=== PATIENT | female | born 1990 | race Caucasian/White ===

== ENCOUNTER 2018-06-10 13:16 | Emergency (ER) | payer OTHER ==
[2018-06-10 13:31] VITALS: BP 116/72; PULSE 88; RESP 16; TEMP 98.2
--- NOTE | 2018-06-10 13:49 | ED ---
General Adult HPI - General Chief complaint: Extremity Injury, Upper Stated complaint: lt arm pain Time Seen by Provider: 06/10/18 13:35 Source: patient, RN notes reviewed Mode of arrival: ambulatory Limitations: no limitations - History of Present Illness Initial comments: Patient for 27-year-old female presents to the emergency room today with a chief complaint of a fall occurred 2 days ago. She does admit that she tripped over a flip-flop. She states that her abdominal left wrist. Does admit to pain locally worse with certain movements. Patient denies any other injury or complaint. - Related Data Home Medications Medication Instructions Recorded Confirmed Ibuprofen [Motrin Ib] 400 mg PO ONCE PRN 06/10/18 06/10/18 Allergies Allergy/AdvReac Type Severity Reaction Status Date / Time No Known Allergies Allergy Unverified 06/10/18 13:40 Review of Systems ROS Statement: Those systems with pertinent positive or pertinent negative responses have been documented in the HPI. ROS Other: All systems not noted in ROS Statement are negative. Past Medical History Past Medical History: No Reported History History of Any Multi-Drug Resistant Organisms: C-DIFF Date of last positivie culture/infection: 2015 Past Surgical History: Adenoidectomy, Section, Tonsillectomy Additional Past Surgical History / Comment(s): tubes in ears, colonoscopy and EGD 2016, knee surgery Past Psychological History: No Psychological Hx Reported Smoking Status: Current every day smoker Past Alcohol Use History: Rare Past Drug Use History: None Reported General Exam - General Exam Comments Initial Comments: General: The patient is awake and alert, in no distress, and does not appear acutely ill. Neck: The neck is supple, there is no tenderness or JVD. Musculoskeletal: Normal appearance of the left wrist obvious deformity. Shows good range of motion both flexion and extension. Tender palpation of the distal radius. Sensation intact. Radial pulses plus. Neurological: A&O x 3. CN II-XII intact, There are no obvious motor or sensory deficits. Coordination appears grossly intact. Speech is normal. Skin: Skin is warm and dry and no rashes or lesions are noted. Psychiatric: Normal mood and affect. Limitations: no limitations Course Vital Signs 06/10/18 13:27 Temperature 98.2 F Pulse Rate 88 Respiratory 16 Rate Blood Pressure 116/72 O2 Sat by Pulse 99 Oximetry Medical Decision Making - Medical Decision Making X-ray reviewed as negative for any acute fracture dislocation. Results were discussed with patient. Patient is advised follow-up in 7-10 days for repeat x- ray. Advised ice elevate the affected area use Alvarez wrap for compression. Advised return for any other concerns. Disposition Clinical Impression: Wrist sprain Disposition: HOME SELF-CARE Condition: Good Instructions: Wrist Sprain (ED) Additional Instructions: Please follow-up in 7-10 days with orthopedic doctor symptoms persist for repeat x-rays as discussed. Please continue to ice elevate the affected area and use Alvarez wrap on up and moving around. Please do not sleep with nontender please use Tylenol/ibuprofen for pain. Is patient prescribed a controlled substance at d/c from ED?: No Referrals: Nonstaff,Physician [REFERRING] - 1-2 days Giovanny Velez DO [Doctor of Osteopathic Medicine] - 1-2 days Time of Disposition: 14:48
--- NOTE | 2018-06-10 14:29 | XR ---
EXAMINATION TYPE: XR wrist complete LT DATE OF EXAM: 06/10/2018 COMPARISON: NONE HISTORY: 27-year-old female with pain after fall TECHNIQUE: 4 views FINDINGS: The radiocarpal and distal radioulnar joints as well as the midcarpal compartment are intact. No acut e fracture, subluxation, or dislocation seen. IMPRESSION: No acute osseous abnormality seen.
== END 2018-06-10 14:52 | disposition home or self-care (01) ==
LOC: EC 13:16
DX: S63.502A Unspecified sprain of left wrist, initial encounter (principal); F17.200 Nicotine dependence, unspecified, uncomplicated; W01.0XXA Fall on same level from slipping, tripping and stumbling without subsequent striking against object, initial encounter
CPT/HCPCS: 99283

== ENCOUNTER 2019-01-16 18:22 | Observation (INO) | payer OTHER ==
[2019-01-16] MEDS ORDERED: SODIUM CHLORIDE 0.9% 1,000 ML IV STA (18:33)
[2019-01-16] MEDS ORDERED: ONDANSETRON 4 MG/2 ML VIAL IVP STA (18:33)
[2019-01-16] MEDS ORDERED: MORPHINE SULFATE 2 MG/ML SYRINGE IVP STA (18:33)
[2019-01-16 19:28] LABS: Appearance,Urine Clear (Clear); Bilirubin,Urine Negative (Negative); Blood,Urine Negative (Negative); Color,Urine Yellow; Glucose,Urine (UA) Negative (Negative); Ketones,Urine Negative (Negative); Leukocyte Esterase,Urine Negative (Negative); Nitrite,Urine Negative (Negative); PH, Urine 6.5 (5.0-8.0); Protein,Urine Trace (Negative)
[2019-01-16 19:31] LABS: Basophils # (A) 0.1 k/uL (0-0.2); Basophils % (A) 1 %; Eosinophils # (A) 0.2 k/uL (0-0.7); Eosinophils % (A) 2 %; HCT 45.5 % (34.0-46.0); HGB 14.8 gm/dL (11.4-16.0); Lymphocytes # (A) 2.3 k/uL (1.0-4.8); Lymphocytes % (A) 23 %; MCH 31.1 pg (25.0-35.0); MCHC 32.6 g/dL (31.0-37.0); MCV 95.6 fL (80.0-100.0); Mean Platelet Volume 6.2; Monocytes # (A) 0.4 k/uL (0-1.0); Monocytes % (A) 4 %; Neutrophils # (A) 7.2 k/uL (1.3-7.7); Neutrophils % (A) 70 %; Platelet Count 395 k/uL (150-450); RBC 4.77 m/uL (3.80-5.40); RDW 12.9 % (11.5-15.5); WBC 10.2 k/uL (3.8-10.6)
[2019-01-16 19:37] LABS: ALT 33 U/L (9-52); AST 20 U/L (14-36); Albumin 3.9 g/dL (3.5-5.0); Alkaline Phosphatase 60 U/L (38-126); Amylase 74 U/L (30-110); Anion Gap 10 mmol/L; Blood Urea Nitrogen 10 mg/dL (7-17); Calcium 9.3 mg/dL (8.4-10.2); Carbon Dioxide 21 mmol/L (22-30); Chloride 110 mmol/L (98-107); Glucose 102 mg/dL (74-99); Lipase 504 U/L (23-300); Sodium 141 mmol/L (137-145); Total Bilirubin 0.4 mg/dL (0.2-1.3); Total Protein 6.8 g/dL (6.3-8.2)
--- NOTE | 2019-01-16 20:19 | ED ---
Abdominal Pain HPI <Jerome Valdez - Last Filed: 01/16/19 22:20> - General Source: patient Mode of arrival: ambulatory Limitations: no limitations <Kandy Yanes - Last Filed: 01/16/19 23:03> - General Chief Complaint: Abdominal Pain Stated Complaint: Abd Pain Time Seen by Provider: 01/16/19 18:25 - History of Present Illness Initial Comments: 28-year-old female presenting today for chief complaint of right-sided abdominal pain. Patient states that she had been coughing pretty hard yesterday when she felt sudden right-sided abdominal pain. Patient states she can feel a mass in the right side. She states this is where the pain occurs. Patient states the pain increases with stretching or movement or walking. Patient states pain is constant but is better at rest. Patient states that she is currently menstrual however this does not feel like it is in the pelvic region. Patient denies any heavy vaginal bleeding or back pain. Patient denies any trauma to the abdomen. Patient denies any vomiting. Patient does admit to nausea due to the pain. Patient denies any flank pain hematuria urgency frequency dysuria. Patient states she does have softer than normal stools however she states this often occurs with menstruation. Patient denies any fever chills night sweats. Remain ing review of systems negative upon arrival patient appears uncomfortable, patient denies any recent shortness of breath, chest pain, back pain, numbness or tingling, dysuria or hematuria, constipation, headaches or visual changes, or any other complaints. Patient denies any intra-abdominal surgeries. (Kandy Yanes) - Related Data Home Medications Medication Instructions Recorded Confirmed Acetaminophen [Tylenol] 650 mg PO Q8H 01/16/19 01/16/19 Acetaminophen/Diphenhydramine 2 tab PO HS 01/16/19 01/16/19 [Tylenol PM 500-25mg] Allergies Allergy/AdvReac Type Severity Reaction Status Date / Time No Known Allergies Allergy Verified 01/16/19 19:28 Review of Systems ROS Other: All systems not noted in ROS Statement are negative. <Jerome Valdez - Last Filed: 01/16/19 22:20> ROS Other: All systems not noted in ROS Statement are negative. <Kandy Yanes - Last Filed: 01/16/19 23:03> ROS Statement: Those systems with pertinent positive or pertinent negative responses have been documented in the HPI. Past Medical History Past Medical History: No Reported History History of Any Multi-Drug Resistant Organisms: C-DIFF Date of last positivie culture/infection: 2015 Past Surgical History: Adenoidectomy, Section, Ear Surgery, Tonsille ctomy Additional Past Surgical History / Comment(s): tubes in ears, colonoscopy and EGD 2016, knee surgery Past Psychological History: No Psychological Hx Reported Smoking Status: Current every day smoker Past Alcohol Use History: Rare Past Drug Use History: None Reported <Kandy Yanes - Last Filed: 01/16/19 23:03> General Exam Limitations: no limitations <Kandy Yanes - Last Filed: 01/16/19 23:03> - General Exam Comments Initial Comments: General: The patient is awake and alert, patient crying appearing uncomfortable Eye: +3 mm pupils are equal, round and reactive to light, extra-ocular movements are intact. No nystagmus. There is normal conjunctiva bilaterally. No signs of icterus. Ears, nose, mouth and throat: There are moist mucous membranes and no oral lesions. Neck: The neck is supple, there is no tenderness or JVD. Cardiovascular: There is a regular rate and rhythm. No murmur, rub or gallop is appreciated. Respiratory: Lungs are clear to auscultation, respirations are non-labored, breath sounds are equal. No wheezes, stridor, rales, or rhonchi. Gastrointestinal: No noted diaphoresis, jaundice, pallor, protecting postures or squirming. Symmetrical pigmentation of abdomen without signs of inflammation. Umbilicus mildline, inverted without swelling. No dilated veins. Abdomen contour obese, no noted abdominal distention. No peristalsis, aortic pulsations, or ventral hernia. Bowel sounds audible in all 4 quadrants, unremarkable. Palpable mass p rotruding and right lower quadrant. Pain to palpation at site of mass, does not appear to be a reducible hernia . Liver edge, not palpable. Spleen edge, right and left kidney not palpable. Superior bladder margin non-tender. Special Testing: Negative [place], Rovsing, McBurney, Mik, cutaneous hyperesthesia. Negative Heel Jar test. No CVA tenderness. Digital rectal exam deferred. Negative nathan turners or cullens sign Musculoskeletal: Normal ROM, no tenderness. Strength 5/5. Sensation intact. Pulses equal bilaterally 2+. Neurological: A&O x 3. CN II-XII intact, There are no obvious motor or sensory deficits. Coordination appears grossly intact. Speech is normal. Skin: Skin is warm and dry and no rashes or lesions are noted. Psychiatric: Cooperative, appropriate mood & affect, normal judgment. (Kandy Yanes) Course Vital Signs 01/16/19 18:28 Temperature 98.2 F Pulse Rate 101 H Respiratory 18 Rate Blood Pressure 112/73 O2 Sat by Pulse 100 Oximetry Medical Decision Making - Lab Data Result diagrams: 01/16/19 19:19 01/16/19 19:19 <Jerome Valdez - Last Filed: 01/16/19 22:20> - Lab Data Result diagrams: 01/16/19 19:19 01/16/19 19:19 <Kandy Yanes - Last Filed: 01/16/19 23:03> - Medical Decision Making Patient with sudden onset lower abdominal pain. Patient has focal tenderness on exam. Symptoms began with coughing spell. CT does show 2.5 cm mass adjacent to the rectus, likely rectus sheath hematoma. History and exam is consistent. Patient given multiple doses of IV pain medication the emergency department, will be admitted for pain control. Case discussed with Dr. Osborn, we will admit. (Jerome Valdez) Patient presented for sudden lower abdominal pain. Patient has masses. The tenderness on exam. CT revealed a 2.5 [place] to the rectus, this is most likely a hematoma. Patient given IV analgesic in the emergency department. Dr. Hernandez consult to to review CT imaging studies, he spoke with attending provider Dr. Valdez who also reviewed imaging studies. He recommended patient admission if patient pain is not controlled. Accepting admission. Patient given option of admission for IV analgesics first discharge. Patient would like admission at this time given patient pain is not controlled. I am agreeable to admission patient denies any questions at this time. Patient admitted to emergency department for intractable pain as well as rectus sheath hematoma. (Kandy Yanes) - Lab Data Lab Results 01/16/19 01/16/19 01/16/19 Range/Units 19:19 19:19 19:19 WBC 10.2 (3.8-10.6) k/uL RBC 4.77 (3.80-5.40) m/uL Hgb 14.8 (11.4-16.0) gm/dL Hct 45.5 (34.0-46.0) % MCV 95.6 (80.0-100.0) fL MCH 31.1 (25.0-35.0) pg MCHC 32.6 (31.0-37.0) g/dL RDW 12.9 (11.5-15.5) % Plt Count 395 (150-450) k/uL Neutrophils % 70 % Lymphocytes % 23 % Monocytes % 4 % Eosinophils % 2 % Basophils % 1 % Neutrophils # 7.2 (1.3-7.7) k/uL Lymphocytes # 2.3 (1.0-4.8) k/uL Monocytes # 0.4 (0-1.0) k/uL Eosinophils # 0.2 (0-0.7) k/uL Basophils # 0.1 (0-0.2) k/uL Sodium 141 (137-145) mmol/L Potassium 4.0 (3.5-5.1) mmol/L Chloride 110 H (98-107) mmol/L Carbon Dioxide 21 L (22-30) mmol/L Anion Gap 10 mmol/L BUN 10 (7-17) mg/dL Creatinine 0.74 (0.52-1.04) mg/dL Est GFR (CKD-EPI)AfAm >90 (>60 ml/min/1.73 sqM) Est GFR (CKD-EPI)NonAf >90 (>60 ml/min/1.73 sqM) Glucose 102 H (74-99) mg/dL Calcium 9.3 (8.4-10.2) mg/dL Total Bilirubin 0.4 (0.2-1.3) mg/dL AST 20 (14-36) U/L ALT 33 (9-52) U/L Alkaline Phosphatase 60 (38-126) U/L Total Protein 6.8 (6.3-8.2) g/dL Albumin 3.9 (3.5-5.0) g/dL Amylase 74 (30-110) U/L Lipase 504 H (23-300) U/L Urine Color Urine Appearance (Clear) Urine pH (5.0-8.0) Ur Specific [place] (1.001-1.035) Urine Protein (Negative) Urine Glucose (UA) (Negative) Urine Ketones (Negative) Urine Blood (Negative) Urine Nitrite (Negative) Urine Bilirubin (Negative) Urine Urobilinogen (<2.0) mg/dL Ur Leukocyte Esterase (Negative) Urine HCG, Qual Not Detected (Not Detectd) 01/16/19 Range/Units 19:19 WBC (3.8-10.6) k/uL RBC (3.80-5.40) m/uL Hgb (11.4-16.0) gm/dL Hct (34.0-46.0) % MCV (80.0-100.0) fL MCH (25.0-35.0) pg MCHC (31.0-37.0) g/dL RDW (11.5-15.5) % Plt Count (150-450) k/uL Neutrophils % % Lymphocytes % % Monocytes % % Eosinophils % % Basophils % % Neutrophils # (1.3-7.7) k/uL Lymphocytes # (1.0-4.8) k/uL Monocytes # (0-1.0) k/uL Eosinophils # (0-0.7) k/uL Basophils # (0-0.2) k/uL Sodium (137-145) mmol/L Potassium (3.5-5.1) mmol/L Chloride (98-107) mmol/L Carbon Dioxide (22-30) mmol/L Anion Gap mmol/L BUN (7-17) mg/dL Creatinine (0.52-1.04) mg/dL Est GFR (CKD-EPI)AfAm (>60 ml/min/1.73 sqM) Est GFR (CKD-EPI)NonAf (>60 ml/min/1.73 sqM) Glucose (74-99) mg/dL Calcium (8.4-10.2) mg/dL Total Bilirubin (0.2-1.3) mg/dL AST (14-36) U/L ALT (9-52) U/L Alkaline Phosphatase (38-126) U/L Total Protein (6.3-8.2) g/dL Albumin (3.5-5.0) g/dL Amylase (30-110) U/L Lipase (23-300) U/L Urine Color Yellow Urine Appearance Clear (Clear) Urine pH 6.5 (5.0-8.0) Ur Specific [place] 1.030 (1.001-1.035) Urine Protein Trace H (Negative) Urine Glucose (UA) Negative (Negative) Urine Ketones Negative (Negative) Urine Blood Negative (Negative) Urine Nitrite Negative (Negative) Urine Bilirubin Negative (Negative) Urine Urobilinogen 2.0 (<2.0) mg/dL Ur Leukocyte Esterase Negative (Negative) Urine HCG, Qual (Not Detectd) Disposition <Jerome Valdez - Last Filed: 01/16/19 22:20> Is patient prescribed a controlled substance at d/c from ED?: No Time of Disposition: 22:36 Decision to Admit Reason: Admit from EC Decision Date: 01/16/19 Decision Time: 22:36 <Kandy Yanes - Last Filed: 01/16/19 23:03> Clinical Impression: Nontraumatic rectus hematoma, Intractable pain Disposition: ADMITTED IP TO THIS [facility] Condition: Stable
--- NOTE | 2019-01-16 20:37 | CT ---
EXAMINATION TYPE: CT abdomen pelvis w con DATE OF EXAM: 01/16/2019 COMPARISON: HISTORY: RQ pain. Hx C-diff, sx hx CT DLP: 1270.9 mGycm Automated exposure control for dose reduction was used. TECHNIQUE: Helical acquisition of images was performed from the lung bases through the pelvis. CONTRAST: Performed without Oral Contrast and with IV Contrast, patient injected with 100 mL of Isovu e 300. FINDINGS: LUNG BASES: No significant abnormality is appreciated. LIVER/GB: No significant abnormality is appreciated. PANCREAS: No significant abnormality is seen. SPLEEN: No significant abnormality is seen. ADRENALS: No significant abnormality is seen. KIDNEYS: No significant abnormality is seen. FREE AIR: No free air is visualized. ABDOMINAL ADENOPATHY: None visualized REPRODUCTIVE ORGANS: No significant abnormality is seen. Tampon noted. URINARY BLADDER: No significant abnormality is seen. PELVIC ADENOPATHY: None visualized. ANTERIOR ABDOMINAL WALL: 10 cm caudal to the umbilicus, in the right Spigelian position, is a 2.5 cm diameter ill-defined solid soft tissue emanating from the right rectus abdominis. This may correspond with the patient's symptoms, and may represent postprocedure change. OSSEOUS STRUCTURES: No significant abnormality is seen. BOWEL: No significant abnormality is seen. The appendix is unremarkable. OTHER: No acute vascular findings. IMPRESSION: 2.5 CM SOFT TISSUE PROTUBERANCE RELATED TO THE RIGHT RECTUS ABDOMINIS.
--- NOTE | 2019-01-16 20:43 | US ---
EXAMINATION TYPE: US abdomen limited DATE OF EXAM: 01/16/2019 COMPARISON: NONE CLINICAL HISTORY: GB/pancreas. RUQ pain, nausea for 1 day EXAM MEASUREMENTS: Liver Length: 15.6 cm Gallbladder Wall: 0.3 cm CBD: 0.3 cm Right Kidney: 9.9 x 3.2 x 4.8 cm Pancreas: limited evaluation due to overlying bowel content Liver: appears wnl Gallbladder: contracted Evidence for sonographic Turner's sign: no CBD: appears wnl Right Kidney: no evidence of hydronephrosis or mass IMPRESSION: NO ACUTE PROCESS.
[2019-01-16] MEDS ORDERED: MORPHINE SULFATE 4 MG/ML SYRINGE IVP STA (21:17)
[2019-01-16] MEDS ORDERED: ONDANSETRON 4 MG/2 ML VIAL IVP PRN (22:33)
[2019-01-16] MEDS ORDERED: NALOXONE 0.4 MG/ML 1 ML VIAL IV PRN (22:33)
[2019-01-16] MEDS ORDERED: SODIUM CHLORIDE 0.9% 1,000 ML IV SCH (22:45)
[2019-01-16] MEDS ORDERED: NICOTINE 14MG/24HR PATCH TRANSDERM SCH (22:45)
[2019-01-16] MEDS ORDERED: NICOTINE 14MG/24HR PATCH TRANSDERM STA (22:50)
[2019-01-16] MEDS: HYDROmorphone 0.5 MG/0.5 ML SYRINGE IVP PRN (23:03)
[2019-01-16 23:07] VITALS: RESP 16
[2019-01-17] MEDS: HYDROmorphone 0.5 MG/0.5 ML SYRINGE IVP PRN ×3 (02:06→08:19)
[2019-01-17 07:44] VITALS: TEMP 98.4
[2019-01-17 08:43] VITALS: BP 129/84; PULSE 76
[2019-01-17] MEDS ORDERED: HYDROcodone/APAP 7.5-325MG 1 EACH TAB PO PRN (08:43)
--- NOTE | 2019-01-17 09:23 | P.GSHP ---
History of Present Illness H&P Date: 01/17/19 Chief Complaint: Right-sided abdominal pain This is a 20-year-old female who developed severe abdominal pain after a coughing spell. The patient states the pain was like a light switch going on. Patient was worked up emergency room. She is found have a possible right rectus sheath hematoma. Patient still states she has pain however the pain is improved from last night. Past Medical History Past Medical History: No Reported History History of Any Multi-Drug Resistant Organisms: C-DIFF Date of last positivie culture/infection: 2016 MDRO Source:: C-Diff Past Surgical History: Adenoidectomy, Section, Ear Surgery, Tonsi llectomy Additional Past Surgical History / Comment(s): tubes in ears, colonoscopy and EGD 2015, knee surgery Past Anesthesia/Blood Transfusion Reactions: No Reported Reaction Past Psychological History: No Psychological Hx Reported Smoking Status: Current every day smoker Past Alcohol Use History: Rare Past Drug Use History: None Reported - Past Family History Mother History Unknown: Yes Family Medical History: Cancer Medications and Allergies Home Medications Medication Instructions Recorded Confirmed Type Acetaminophen [Tylenol] 650 mg PO Q8H 01/16/19 01/16/19 History Acetaminophen/Diphenhydramine 2 tab PO HS 01/16/19 01/16/19 History [Tylenol PM 500-25mg] Allergies Allergy/AdvReac Type Severity Reaction Status Date / Time No Known Allergies Allergy Verified 01/16/19 19:28 Surgical - Exam Vital Signs Temp Pulse Resp BP Pulse Ox 98.2 F 101 H 18 112/73 100 01/16/19 18:28 01/16/19 18:28 01/16/19 18:28 01/16/19 18:28 01/16/19 18:28 - General well developed, well nourished, no distress - Eyes PERRL - ENT normal pinna - Neck no masses - Respiratory normal expansion - Cardiovascular Rhythm: regular - Abdomen Mild right-sided tenderness in the right lower quadrant. There is no rebound or guarding. Abdomen: soft Results - Labs 01/16/19 19:19 01/16/19 19:19 Abnormal Lab Results - Last 24 Hours (Table) 01/16/19 01/16/19 Range/Units 19:19 19:19 Chloride 110 H (98-107) mmol/L Carbon Dioxide 21 L (22-30) mmol/L Glucose 102 H (74-99) mg/dL Lipase 504 H (23-300) U/L Urine Protein Trace H (Negative) Diabetes panel 01/16/19 Range/Units 19:19 Sodium 141 (137-145) mmol/L Potassium 4.0 (3.5-5.1) mmol/L Chloride 110 H (98-107) mmol/L Carbon Dioxide 21 L (22-30) mmol/L BUN 10 (7-17) mg/dL Creatinine 0.74 (0.52-1.04) mg/dL Glucose 102 H (74-99) mg/dL Calcium 9.3 (8.4-10.2) mg/dL AST 20 (14-36) U/L ALT 33 (9-52) U/L Alkaline Phosphatase 60 (38-126) U/L Total Protein 6.8 (6.3-8.2) g/dL Albumin 3.9 (3.5-5.0) g/dL Calcium panel 01/16/19 Range/Units 19:19 Calcium 9.3 (8.4-10.2) mg/dL Albumin 3.9 (3.5-5.0) g/dL Pituitary panel 01/16/19 Range/Units 19:19 Sodium 141 (137-145) mmol/L Potassium 4.0 (3.5-5.1) mmol/L Chloride 110 H (98-107) mmol/L Carbon Dioxide 21 L (22-30) mmol/L BUN 10 (7-17) mg/dL Creatinine 0.74 (0.52-1.04) mg/dL Glucose 102 H (74-99) mg/dL Calcium 9.3 (8.4-10.2) mg/dL Adrenal panel 01/16/19 Range/Units 19:19 Sodium 141 (137-145) mmol/L Potassium 4.0 (3.5-5.1) mmol/L Chloride 110 H (98-107) mmol/L Carbon Dioxide 21 L (22-30) mmol/L BUN 10 (7-17) mg/dL Creatinine 0.74 (0.52-1.04) mg/dL Glucose 102 H (74-99) mg/dL Calcium 9.3 (8.4-10.2) mg/dL Total Bilirubin 0.4 (0.2-1.3) mg/dL AST 20 (14-36) U/L ALT 33 (9-52) U/L Alkaline Phosphatase 60 (38-126) U/L Total Protein 6.8 (6.3-8.2) g/dL Albumin 3.9 (3.5-5.0) g/dL - Imaging CT scan - abdomen: report reviewed (Computed tomography scan as reviewed. There is a questionable rectus sheath hematoma.) Assessment and Plan Assessment: Spontaneous rectus sheath hematoma. The omental was small. Patient will be managed on oral pain medication today and hopefully discharged later today
== END 2019-01-17 13:30 | disposition home or self-care (01) ==
LOC: EC 18:22 → 4SSUR 22:36
PROVIDERS: ADMIT Surgery; ATTEND Surgery
DX: M79.81 Nontraumatic hematoma of soft tissue (principal); R11.0 Nausea; Z86.19 Personal history of other infectious and parasitic diseases; F17.200 Nicotine dependence, unspecified, uncomplicated; X50.0XXA Overexertion from strenuous movement or load, initial encounter
CPT/HCPCS: 96376 ×2; 96374; 96375; 99285; 36415; 80053; 82150; 83690; 85025; 81003; 81025; 76705; 74177; G0378 ×2; S4990; J2270 ×2; J2405 ×2; J1170 ×2; Q9967

== ENCOUNTER → 2019-01-20 | Outpatient (CLI) | payer OTHER ==
[2019-01-20 14:44] LABS: Basophils # (A) 0.1 k/uL (0-0.2); Basophils % (A) 1 %; Eosinophils # (A) 0.2 k/uL (0-0.7); Eosinophils % (A) 2 %; HCT 48.5 % (34.0-46.0); HGB 15.2 gm/dL (11.4-16.0); Lymphocytes # (A) 2.2 k/uL (1.0-4.8); Lymphocytes % (A) 22 %; MCH 30.9 pg (25.0-35.0); MCHC 31.4 g/dL (31.0-37.0); MCV 98.2 fL (80.0-100.0); Mean Platelet Volume 6.1; Monocytes # (A) 0.4 k/uL (0-1.0); Monocytes % (A) 4 %; Neutrophils % (A) 71 %; Platelet Count 400 k/uL (150-450); RBC 4.93 m/uL (3.80-5.40); RDW 12.8 % (11.5-15.5)
== END | disposition home or self-care (01) ==
LOC: LABWHC1 14:19
PROVIDERS: ATTEND Surgery
DX: Z01.812 Encounter for preprocedural laboratory examination (principal); F17.200 Nicotine dependence, unspecified, uncomplicated; D64.9 Anemia, unspecified; K43.2 Incisional hernia without obstruction or gangrene
CPT/HCPCS: 36415; 85025

== ENCOUNTER → 2019-01-21 | Day surgery (SDC) | payer OTHER ==
[~2019-01-21] MED LIST: BUPIVACAINE-EPI 0.5%-1:200,000 10 ML VIAL SQ ONE; DEXAMETHASONE SOD PHOSPHATE 10 MG/ML 1 ML VIAL IV ONE; GLYCOPYRROLATE 0.2 MG/ML 2 ML VIAL ONE; HEPARIN SODIUM,PORCINE 5,000 UNIT/ML 1 ML VIAL SQ ONE; KETOROLAC 30 MG/ML 1 ML VIAL ONE; LACTATED RINGERS 1,000 ML IV ONE; LACTATED RINGERS 1,000 ML IV SCH; LIDOCAINE 1% 20 ML VIAL (10MG/ML) FOR IV START INTRADERMA PRN; LIDOCAINE 1% INJ 10MG/ML (20 ML MDV) ONE; MIDAZOLAM (PF) 2 MG/2 ML VIAL IV PRN; MIDAZOLAM 2 MG/2 ML VIAL ONE; NEOSTIGMINE 1 MG/ML 10 ML VIAL ONE; ONDANSETRON 4 MG/2 ML VIAL IVP ONE; PHENYLEPHRINE-0.9% NACL SYG 1 MG/10 ML SYRINGE ONE; PROPOFOL 10 MG/ML 20 ML VIAL IV ONE; Pre Op ABX Message 1 EACH MISC MISCELLANE ONE; ROCURONIUM BROMIDE 10 MG/ML 10 ML VIAL IV ONE; ROPIVACAINE 5 MG/ML 30 ML VIAL ONE; SCOPOLAMINE 1.5MG/72HR PATCH TRANSDERM ONE; SODIUM CHLORIDE 0.9% 50 ML with ceFAZolin 2,000 MG IV ONE; SUCCINYLCHOLINE CHLORIDE 100 MG/5 ML SYR IV ONE; fentaNYL (PF) 50 MCG/ML 2 ML AMP IV ONE; fentaNYL (PF) 50 MCG/ML 2 ML AMP ONE
--- NOTE | 2019-01-21 12:25 | P.ONQ ---
Anesthesiology Proc Note - PNB - Peripheral Nerve Block Performed Right Transversus Abdominis Single Time Out Performed: Yes (3627) Procedure Start Time: 12:04 Procedure Stop Time: 12:09 Indication: Acute Post-Operative Pain, Dx/Pain Location (Abdominal Pain), Requested by physician Sedation Type: Sedate with meaningful contact maintained Catheter: None Needle Types: On-Q Needle Size: 100mm (4") Needle Gauge: 21 Technique: Ultrasound Injectate: Other (see comment) (30ml 0.25% Ropivacaine) Blood Aspirated: No Pain Paresthesia on Injection Noted: No Resistance on Injection: Normal Events: Uneventful and Well Tolerated
--- NOTE | 2019-01-21 12:55 | P.GSHP ---
History of Present Illness H&P Date: 01/21/19 Chief Complaint: Incarcerated incisional hernia This is a 20-year-old female who's developed a tender mass in her right lower abdomen. The mass is just to the right lateral side t of her previous Pfannenstiel incision. Patient has developed a tender mass in this area for the last several months. She presents today for repair of incarcerated incisional hernia. Past Medical History Past Medical History: No Reported History History of Any Multi-Drug Resistant Organisms: C-DIFF Date of last positivie culture/infection: 2016 MDRO Source:: C-Diff Past Surgical History: Adenoidectomy, Section, Ear Surgery, Tonsillectomy Additional Past Surgical History / Comment(s): tubes in ears, colonoscopy and EGD 2015, knee surgery Past Anesthesia/Blood Transfusion Reactions: No Reported Reaction Past Psychological History: No Psychological Hx Reported Smoking Status: Current every day smoker Past Alcohol Use History: Rare Past Drug Use History: None Reported - Past Family History Mother History Unknown: Yes Family Medical History: Cancer Medications and Allergies Home Medications Medication Instructions Recorded Confirmed Type Acetaminophen [Tylenol] 650 mg PO Q8H 01/16/19 01/21/19 History Acetaminophen/Diphenhydramine 2 tab PO HS 01/16/19 01/21/19 History [Tylenol PM 500-25mg] HYDROcodone/APAP 7.5-325MG [[place] 1 tab PO Q4H PRN 3 Days #18 tab 01/17/19 01/21/19 Rx 7.5-325] Allergies Allergy/AdvReac Type Severity Reaction Status Date / Time No Known Allergies Allergy Verified 01/21/19 11:28 Surgical - Exam Vital Signs Temp Pulse Resp BP Pulse Ox 98.5 F 86 16 109/62 95 01/21/19 11:40 01/21/19 11:40 01/21/19 11:40 01/21/19 11:40 01/21/19 11:40 - General well developed, well nourished, no distress - Eyes PERRL, normal ocular movement - ENT normal pinna - Neck no masses - Respiratory normal expansion, normal respiratory effort - Cardiovascular Rhythm: regular - Abdomen Abdomen: soft, non tender Assessment and Plan Assessment: Incarcerated incisional hernia. We'll perform open repair.
--- NOTE | 2019-01-21 14:17 | P.OP ---
Date of Procedure: 01/21/19 Preoperative Diagnosis: Incarcerated incisional hernia Postoperative Diagnosis: Incarcerated incisional hernia Procedure(s) Performed: (Incarcerated incisional hernia Anesthesia: JOSE ANGEL Surgeon: Bill Perez Estimated Blood Loss (ml): 10 Pathology: other (Hernia) Condition: stable Disposition: PACU Description of Procedure: The patient's placed on the operative table in the supine position position. She received general anesthesia. Her abdomen was prepped and draped usual s terile fashion. Patient had a mass located on the right lateral aspect of her Pfannenstiel incision. The skin over the mass was incised. Using blunt and sharp dissection with cautery the some taste tissues were divided. This appeared to be an incarcerated hernia. The hernia sac was opened there was a calcified piece of fat within the hernia this was excised and sent to pathology. The fascial defect was then closed with [id number] 0 Ethibond suture. Diya's fascia was closed with 2-0 Vicryl. Skin was closed antonio. Patient top procedure well and was sent to recovery in stable condition.
[2019-01-21] MEDS: HYDROmorphone 0.5 MG/0.5 ML SYRINGE IVP PRN ×4 (14:28→14:59)
[2019-01-21 14:34] VITALS: TEMP 98
[2019-01-21 15:51] VITALS: RESP 18
[2019-01-21 16:08] VITALS: BP 117/69; PULSE 77
== END ==
LOC: OR 06:24
PROVIDERS: ATTEND Surgery
DX: K43.0 Incisional hernia with obstruction, without gangrene (principal); F17.210 Nicotine dependence, cigarettes, uncomplicated
CPT/HCPCS: 49561; 81025; 64486; J2250 ×2; J1100; J2710; J2405; J2001; J3010; J1885; J0690; J2795; J2370; J0330; J2704; J1170; 88302; 88341; 88342

== ENCOUNTER 2019-01-25 19:16 | Emergency (ER) | payer OTHER ==
[2019-01-25] MEDS ORDERED: HYDROmorphone 2 MG/ML 1 ML SYRINGE IVP STA ×2 (19:56→22:01)
[2019-01-25] MEDS ORDERED: ONDANSETRON 4 MG/2 ML VIAL IVP STA (19:56)
[2019-01-25 20:07] LABS: Basophils % (A) 0 %; Eosinophils # (A) 0.3 k/uL (0-0.7); Eosinophils % (A) 2 %; HCT 48.8 % (34.0-46.0); HGB 15.8 gm/dL (11.4-16.0); Lymphocytes # (A) 2.3 k/uL (1.0-4.8); Lymphocytes % (A) 21 %; MCH 31.2 pg (25.0-35.0); MCHC 32.4 g/dL (31.0-37.0); MCV 96.3 fL (80.0-100.0); Mean Platelet Volume 6.2; Monocytes # (A) 0.6 k/uL (0-1.0); Monocytes % (A) 6 %; Neutrophils # (A) 7.8 k/uL (1.3-7.7); Neutrophils % (A) 70 %; Platelet Count 392 k/uL (150-450); RBC 5.06 m/uL (3.80-5.40); RDW 12.7 % (11.5-15.5); WBC 11.1 k/uL (3.8-10.6)
--- NOTE | 2019-01-25 20:08 | ED ---
Abdominal Pain HPI - General Chief Complaint: Abdominal Pain Stated Complaint: Rectal bleeding Time Seen by Provider: 01/25/19 19:40 Source: patient Mode of arrival: ambulatory Limitations: no limitations - History of Present Illness Initial Comments: 28-year-old female patient who is status post hernia repair on 01/21/2019 presents to the emergency department today for evaluation of increased abdominal pain. Patient states that she has been having pain since the surgery however today worsen significantly after having a bowel movement. Patient states she did have some mild of bright red rectal bleeding after the bowel movement. Patient states that she has been nauseated but has not vomited. Denies any fevers or chills. Patient states that she took her last Ecorse tablet this morning. Patient denies any recent rash, shortness breath, chest pain, back pain, numbness, tingling, dizziness, weakness, hematuria, dysuria, urinary urgency, urinary frequency, headache, visual changes, or any other complaints. - Related Data Home Medications Medication Instructions Recorded Confirmed Acetaminophen/Diphenhydramine 2 tab PO HS 01/16/19 01/25/19 [Tylenol PM 500-25mg] Ibuprofen [Motrin Ib] 200 mg PO Q6H 01/25/19 01/25/19 Previous Rx's Medication Instructions Recorded HYDROcodone/APAP 7.5-325MG [Ecorse 1 tab PO Q4H PRN 3 Days #18 tab 01/17/19 7.5-325] Docusate [Colace] 100 mg PO BID #20 capsule 01/21/19 Hydrocodone/Acetaminophen [Ecorse 1 tab PO Q6HR PRN #12 tab 01/25/19 5-325] Allergies Allergy/AdvReac Type Severity Reaction Status Date / Time No Known Allergies Allergy Verified 01/25/19 20:52 Review of Systems ROS Statement: Those systems with pertinent positive or pertinent negative responses have been documented in the HPI. ROS Other: All systems not noted in ROS Statement are negative. Past Medical History Past Medical History: No Reported History History of Any Multi-Drug Resistant Organisms: C-DIFF Date of last positivie culture/infection: 2015 MDRO Source:: C-Diff Past Surgical History: Adenoidectomy, Section, Ear Surgery, Hernia Repair, Tonsillectomy Additional Past Surgical History / Comment(s): tubes in ears, colonoscopy and EGD 2016, knee surgery Past Anesthesia/Blood Transfusion Reactions: No Reported Reaction Past Psychological History: No Psychological Hx Reported Smoking Status: Current every day smoker Past Alcohol Use History: Rare Past Drug Use History: None Reported - Past Family History Mother History Unknown: Yes Family Medical History: Cancer General Exam Limitations: no limitations General appearance: alert, in no apparent distress, other (Physical well-devel oped, well-nourished adult female patient in no acute distress. Vital signs upon presentation are temperature 98.5F, pulse 114, respirations 20, blood pressure 123/79, pulse ox 96% on room air) Eye exam: Present: normal appearance, PERRL, EOMI. Absent: scleral icterus, co njunctival injection, periorbital swelling ENT exam: Present: normal exam, normal oropharynx, mucous membranes moist Respiratory exam: Present: normal lung sounds bilaterally. Absent: respiratory distress, wheezes, rales, rhonchi, stridor Cardiovascular Exam: Present: regular rate, normal rhythm, normal heart sounds. Absent: systolic murmur, diastolic murmur, rubs, gallop, clicks GI/Abdominal exam: Present: soft, tenderness (Tenderness surrounding the right lower abdominal incision. No erythema or drainage noted. Incision is well approximated.), normal bowel sounds. Absent: distended, guarding, rebound, rigid Neurological exam: Present: alert, oriented X3, CN II-XII intact Psychiatric exam: Present: normal affect, normal mood Skin exam: Present: warm, dry, intact, normal color. Absent: rash Course Vital Signs 01/25/19 01/25/19 01/25/19 19:23 20:26 22:28 Temperature 98.5 F 97 F L Pulse Rate 114 H 98 90 Respiratory 20 20 18 Rate Blood Pressure 123/79 128/68 129/79 O2 Sat by Pulse 96 97 97 Oximetry Medical Decision Making - Medical Decision Making 20-year-old female patient presented to the emergency department today for evaluation of increased abdominal pain. She is 4 days status post hernia surgery with Dr. Perez. Physical examination did reveal some tenderness around the incision site. Incision is well approximated with no evidence of infection. Labs reviewed and did reveal elevated white blood count 11.1. She is afebrile, vital signs stable. CT abdomen and pelvis was obtained and showed some mild fat stranding and a small fluid collection consistent with hematoma near the incision site. Upon reevaluation patient is feeling better. She'll be discharged home with a refill of her medication for pain. She is instructed to follow-up with Dr. Carmichael for recheck as soon as possible. Return parameters were discussed in detail. She verbalizes understanding and agrees with this plan. - Lab Data Result diagrams: 01/25/19 19:40 01/25/19 19:40 Lab Results 01/25/19 01/25/19 01/25/19 Range/Units 19:40 19:40 19:40 WBC 11.1 H (3.8-10.6) k/uL RBC 5.06 (3.80-5.40) m/uL Hgb 15.8 (11.4-16.0) gm/dL Hct 48.8 H (34.0-46.0) % MCV 96.3 (80.0-100.0) fL MCH 31.2 (25.0-35.0) pg MCHC 32.4 (31.0-37.0) g/dL RDW 12.7 (11.5-15.5) % Plt Count 392 (150-450) k/uL Neutrophils % 70 % Lymphocytes % 21 % Monocytes % 6 % Eosinophils % 2 % Basophils % 0 % Neutrophils # 7.8 H (1.3-7.7) k/uL Lymphocytes # 2.3 (1.0-4.8) k/uL Monocytes # 0.6 (0-1.0) k/uL Eosinophils # 0.3 (0-0.7) k/uL Basophils # 0.0 (0-0.2) k/uL Sodium 138 (137-145) mmol/L Potassium 4.7 (3.5-5.1) mmol/L Chloride 107 (98-107) mmol/L Carbon Dioxide 25 (22-30) mmol/L Anion Gap 6 mmol/L BUN 9 (7-17) mg/dL Creatinine 0.65 (0.52-1.04) mg/dL Est GFR (CKD-EPI)AfAm >90 (>60 ml/min/1.73 sqM) Est GFR (CKD-EPI)NonAf >90 (>60 ml/min/1.73 sqM) Glucose 88 (74-99) mg/dL Plasma Lactic Acid Ismael 1.0 (0.7-2.0) mmol/L Calcium 9.7 (8.4-10.2) mg/dL Total Bilirubin 0.5 (0.2-1.3) mg/dL AST 22 (14-36) U/L ALT 34 (9-52) U/L Alkaline Phosphatase 68 (38-126) U/L Total Protein 6.7 (6.3-8.2) g/dL Albumin 3.7 (3.5-5.0) g/dL Amylase 32 (30-110) U/L Lipase 105 (23-300) U/L Urine Color Urine Appearance (Clear) Urine pH (5.0-8.0) Ur Specific [place] (1.001-1.035) Urine Protein (Negative) Urine Glucose (UA) (Negative) Urine Ketones (Negative) Urine Blood (Negative) Urine Nitrite (Negative) Urine Bilirubin (Negative) Urine Urobilinogen (<2.0) mg/dL Ur Leukocyte Esterase (Negative) 01/25/19 Range/Units 20:28 WBC (3.8-10.6) k/uL RBC (3.80-5.40) m/uL Hgb (11.4-16.0) gm/dL Hct (34.0-46.0) % MCV (80.0-100.0) fL MCH (25.0-35.0) pg MCHC (31.0-37.0) g/dL RDW (11.5-15.5) % Plt Count (150-450) k/uL Neutrophils % % Lymphocytes % % Monocytes % % Eosinophils % % Basophils % % Neutrophils # (1.3-7.7) k/uL Lymphocytes # (1.0-4.8) k/uL Monocytes # (0-1.0) k/uL Eosinophils # (0-0.7) k/uL Basophils # (0-0.2) k/uL Sodium (137-145) mmol/L Potassium (3.5-5.1) mmol/L Chloride (98-107) mmol/L Carbon Dioxide (22-30) mmol/L Anion Gap mmol/L BUN (7-17) mg/dL Creatinine (0.52-1.04) mg/dL Est GFR (CKD-EPI)AfAm (>60 ml/min/1.73 sqM) Est GFR (CKD-EPI)NonAf (>60 ml/min/1.73 sqM) Glucose (74-99) mg/dL Plasma Lactic Acid Ismael (0.7-2.0) mmol/L Calcium (8.4-10.2) mg/dL Total Bilirubin (0.2-1.3) mg/dL AST (14-36) U/L ALT (9-52) U/L Alkaline Phosphatase (38-126) U/L Total Protein (6.3-8.2) g/dL Albumin (3.5-5.0) g/dL Amylase (30-110) U/L Lipase (23-300) U/L Urine Color Light Yellow Urine Appearance Clear (Clear) Urine pH 7.5 (5.0-8.0) Ur Specific [place] 1.020 (1.001-1.035) Urine Protein Negative (Negative) Urine Glucose (UA) Negative (Negative) Urine Ketones Negative (Negative) Urine Blood Negative (Negative) Urine Nitrite Negative (Negative) Urine Bilirubin Negative (Negative) Urine Urobilinogen <2.0 (<2.0) mg/dL Ur Leukocyte Esterase Negative (Negative) - Radiology Data Radiology results: report reviewed, image reviewed CT abdomen and pelvis with contrast was obtained. Report was reviewed in its entirety. Impression by Dr. De La Vega shows some fashion and density in the subcutaneous tissues consistent with hematoma. Same area soft tissue density in the rectus muscles and the recent computed tomography scan. THIS cannot be entirely excluded. Disposition Clinical Impression: Post-op pain, Rectal bleeding Disposition: HOME SELF-CARE Condition: Good Instructions (If sedation given, give patient instructions): Abdominal Pain (ED) Additional Instructions: Take medications as prescribed. Increase physical activity and increase water intake. Follow-up with your surgeon for recheck as soon as possible, call tomorrow morning. Return to emergency department immediately for any new, worsening, or concerning symptoms. Prescriptions: Hydrocodone/Acetaminophen [Ecorse 5-325] 1 tab PO Q6HR PRN #12 tab PRN Reason: Pain Is patient prescribed a controlled substance at d/c from ED?: No Referrals: None,Stated [Primary Care Provider] - 1-2 days Time of Disposition: 22:02
[2019-01-25 20:16] LABS: ALT 34 U/L (9-52); AST 22 U/L (14-36); Albumin 3.7 g/dL (3.5-5.0); Alkaline Phosphatase 68 U/L (38-126); Amylase 32 U/L (30-110); Anion Gap 6 mmol/L; Blood Urea Nitrogen 9 mg/dL (7-17); Calcium 9.7 mg/dL (8.4-10.2); Carbon Dioxide 25 mmol/L (22-30); Chloride 107 mmol/L (98-107); Glucose 88 mg/dL (74-99); Lipase 105 U/L (23-300); Potassium 4.7 mmol/L (3.5-5.1); Sodium 138 mmol/L (137-145); Total Bilirubin 0.5 mg/dL (0.2-1.3); Total Protein 6.7 g/dL (6.3-8.2)
[2019-01-25 20:55] LABS: Appearance,Urine Clear (Clear); Bilirubin,Urine Negative (Negative); Blood,Urine Negative (Negative); Color,Urine Light Yellow; Glucose,Urine (UA) Negative (Negative); Ketones,Urine Negative (Negative); Leukocyte Esterase,Urine Negative (Negative); Nitrite,Urine Negative (Negative); PH, Urine 7.5 (5.0-8.0); Protein,Urine Negative (Negative); Urobilinogen,Urine <2.0 mg/dL (<2.0)
--- NOTE | 2019-01-25 21:03 | CT ---
EXAMINATION TYPE: CT abdomen pelvis w con DATE OF EXAM: 01/25/2019 COMPARISON: 01/16/2019 HISTORY: pain at surgical site post op hernia repair CT DLP: 1120.6 mGycm Automated exposure control for dose reduction was used. TECHNIQUE: Helical acquisition of images was performed from the lung bases through the pelvis. CONTRAST: Performed without Oral Contrast and with IV Contrast, patient injected with 100 mL of Isovue 300. FINDINGS: There is interstitial mild density at the lung bases. Heart size is normal. Liver spleen pancreas gal lbladder appear normal. Bile ducts are not dilated. There is no adrenal mass. Kidneys show satisfactory contrast opacification. There is no hydronephrosi s. The ureters are not dilated. There is no retroperitoneal adenopathy. Bladder distends smoothly. Th ere is no free fluid in the pelvis. There is 2 cm cyst on the left ovary. There is some increased density in the subcutaneous tissues over the right lower quadrant anteriorly with small air bubble. This area measures approximately 4 x 2 cm. There is no mesenteric edema. There is no sign of a bowel obstruction. Appendix appears normal. There is no ascites. There is no sign of free air. The lumbar spine is intact. I see no bony destructive p rocess. IMPRESSION: THERE IS SOME FAT STRANDING AND DENSITY IN THE SUBCUTANEOUS TISSUES CONSISTENT WITH HEMATOMA. THIS IS SAME AREA SOFT TISSUE DENSITY ON THE RECTUS MUSCLE SEEN ON THE RECENT CT SCAN. Developing absces s cannot be entirely excluded.
[2019-01-25 22:29] VITALS: BP 129/79; PULSE 90; RESP 18; TEMP 97
== END 2019-01-25 22:29 | disposition home or self-care (01) ==
LOC: EC 19:16
DX: K62.5 Hemorrhage of anus and rectum (principal); G89.18 Other acute postprocedural pain; R10.31 Right lower quadrant pain; D72.829 Elevated white blood cell count, unspecified; R11.0 Nausea; F17.200 Nicotine dependence, unspecified, uncomplicated; Z79.1 Long term (current) use of non-steroidal anti-inflammatories (NSAID); Z79.899 Other long term (current) drug therapy; Z98.890 Other specified postprocedural states
CPT/HCPCS: 36415; 80053; 82150; 83605; 83690; 85025; 81003; 74177; 99284; 96374; 96375; 96376; J1170; J2405; Q9967

== ENCOUNTER 2019-06-21 17:59 | Emergency (ER) | payer OTHER ==
[2019-06-21 18:43] VITALS: RESP 18
[2019-06-21 19:26] LABS: Appearance,Urine Clear (Clear); Basophils # (A) 0.1 k/uL (0-0.2); Basophils % (A) 1 %; Bilirubin,Urine Negative (Negative); Blood,Urine Negative (Negative); Color,Urine Yellow; Eosinophils # (A) 0.3 k/uL (0-0.7); Eosinophils % (A) 3 %; Glucose,Urine (UA) Negative (Negative); HCT 47.5 % (34.0-46.0); HGB 15.2 gm/dL (11.4-16.0); Ketones,Urine Negative (Negative); Leukocyte Esterase,Urine Negative (Negative); Lymphocytes # (A) 1.9 k/uL (1.0-4.8); Lymphocytes % (A) 23 %; MCH 30.7 pg (25.0-35.0); MCHC 32.1 g/dL (31.0-37.0); MCV 95.8 fL (80.0-100.0); Mean Platelet Volume 6.6; Monocytes # (A) 0.4 k/uL (0-1.0); Monocytes % (A) 5 %; Neutrophils # (A) 5.4 k/uL (1.3-7.7); Neutrophils % (A) 66 %; Nitrite,Urine Negative (Negative); PH, Urine 7.5 (5.0-8.0); Platelet Count 343 k/uL (150-450); Protein,Urine Negative (Negative); RBC 4.96 m/uL (3.80-5.40); Specific Gravity,Urine 1.017 (1.001-1.035); Urobilinogen,Urine <2.0 mg/dL (<2.0); WBC 8.2 k/uL (3.8-10.6)
[2019-06-21 19:40] LABS: HCG,Qualitative Serum Not Detected
[2019-06-21 19:42] LABS: ALT 31 U/L (9-52); AST 26 U/L (14-36); African American GFR (CKD) >90 (>60 ml/min/1.73 sqM); Albumin 4.4 g/dL (3.5-5.0); Alkaline Phosphatase 70 U/L (38-126); Anion Gap 9 mmol/L; Bilirubin,Unconjugated 0.4 mg/dL (0.0-1.1); Blood Urea Nitrogen 11 mg/dL (7-17); Calcium 9.8 mg/dL (8.4-10.2); Carbon Dioxide 22 mmol/L (22-30); Chloride 109 mmol/L (98-107); Glucose 93 mg/dL (74-99); Non-African American GFR(CKD) >90 (>60 ml/min/1.73 sqM); Potassium 4.5 mmol/L (3.5-5.1); Sodium 140 mmol/L (137-145); Total Bilirubin 0.4 mg/dL (0.2-1.3); Total Protein 7.5 g/dL (6.3-8.2)
--- NOTE | 2019-06-21 20:18 | ED ---
General Adult HPI - General Chief complaint: Recheck/Abnormal Lab/Rx Stated complaint: Left Side Swelling/Numbness Time Seen by Provider: 06/21/19 18:48 Source: patient Mode of arrival: ambulatory Limitations: no limitations - History of Present Illness Initial comments: 28-year-old female presenting with facial pain and left-sided body swelling. States symptoms began out any inciting event, and her facial pain is worsening. She denies any tooth pain, history of liver or kidney disease, or similar symptoms previously. She denies any history of DVT/PE or recent surgery, active cancer. Denies any fevers, chills, nausea, vomiting, diarrhea. Denies any joint pain or recent infections. Denies any new rashes. - Related Data Home Medications Medication Instructions Recorded Confirmed No Known Home Medications 06/21/19 06/21/19 Allergies Allergy/AdvReac Type Severity Reaction Status Date / Time No Known Allergies Allergy Verified 06/21/19 19:31 Review of Systems ROS Statement: Those systems with pertinent positive or pertinent negative responses have been documented in the HPI. Review of Systems Constitutional: Denies fever, chills Eyes: Denies change in vision, Denies pain Ears, nose, mouth, throat: Denies headaches, Denies sore throat. Positive facial pain Cardiovascular: Denies chest pain. Denies palpitations Respiratory: Denies shortness of breath, Denies cough Gastrointestinal: Denies abdominal pain. Denies nausea, vomiting, diarrhea. Genitourinary: Denies hematuria, Denies infections Musculoskeletal: Denies pain, Positive welling Integumentary: Denies rash Neurological: Denies headache, focal weakness, focal numbness Psychiatric: Denies anxiety, Denies depression Hematologic/Lymphatic: Denies easy bleeding or bruising ROS Other: All systems not noted in ROS Statement are negative. Past Medical History Past Medical History: No Reported History History of Any Multi-Drug Resistant Organisms: C-DIFF Date of last positivie culture/infection: 2015 MDRO Source:: C-Diff Past Surgical History: Adenoidectomy, Section, Ear Surgery, Hernia Repair, Tonsillectomy Additional Past Surgical History / Comment(s): tubes in ears, colonoscopy and EGD 2016, knee surgery Past Anesthesia/Blood Transfusion Reactions: No Reported Reaction Past Psychological History: Anxiety Smoking Status: Current every day smoker Past Alcohol Use History: Rare Past Drug Use History: None Reported - Past Family History Mother History Unknown: Yes Family Medical History: Cancer General Exam - General Exam Comments Initial Comments: General: Awake, alert, No acute Distress HENT: Normocephalic. Atraumatic. No abscessed teeth or appreciable facial swelling on exam Eyes: PERRL. EOMI. No scleral icterus. No injected conjunctiva Neck: Full ROM Chest/Lungs: Clear to auscultation bilaterally. No wheezing, rhonchi, or rales Cardiac: Regular rate, rhythm. No murmurs or rubs Abdomen/GI: Soft, nontender, nondistended. No rebound, guarding, or rigidity. Musculoskeletal: Full ROM. No swollen or erythematous joints. No appreciable edema. Skin: Warm, dry, intact Neurologic: A/Ox3, no weakness, no sensory deficit, no abnormal gait, no coordination deficit Limitations: no limitations Course Vital Signs 06/21/19 06/21/19 18:41 20:26 Temperature 98.5 F 97.5 F L Pulse Rate 85 78 Respiratory 18 18 Rate Blood Pressure 121/80 124/81 O2 Sat by Pulse 97 99 Oximetry Medical Decision Making - Medical Decision Making 28-year-old female presenting with facial pain and generalized swelling. Laboratory workup was negative. She had no appreciable swelling on exam. I am unable to identify any infectious process causing her facial pain. Some I have instructed the patient to obtain a primary care physician in follow-up.No further emergent workup indicated. The patient was given return to ED instructions. They were instructed to follow up with their primary care provider. Stable for discharge at this time. - Lab Data Result diagrams: 06/21/19 19:10 06/21/19 19:10 Lab Results 06/21/19 06/21/19 06/21/19 Range/Units 19:10 19:10 19:10 WBC 8.2 (3.8-10.6) k/uL RBC 4.96 (3.80-5.40) m/uL Hgb 15.2 (11.4-16.0) gm/dL Hct 47.5 H (34.0-46.0) % MCV 95.8 (80.0-100.0) fL MCH 30.7 (25.0-35.0) pg MCHC 32.1 (31.0-37.0) g/dL RDW 13.0 (11.5-15.5) % Plt Count 343 (150-450) k/uL Neutrophils % 66 % Lymphocytes % 23 % Monocytes % 5 % Eosinophils % 3 % Basophils % 1 % Neutrophils # 5.4 (1.3-7.7) k/uL Lymphocytes # 1.9 (1.0-4.8) k/uL Monocytes # 0.4 (0-1.0) k/uL Eosinophils # 0.3 (0-0.7) k/uL Basophils # 0.1 (0-0.2) k/uL Sodium 140 (137-145) mmol/L Potassium 4.5 (3.5-5.1) mmol/L Chloride 109 H (98-107) mmol/L Carbon Dioxide 22 (22-30) mmol/L Anion Gap 9 mmol/L BUN 11 (7-17) mg/dL Creatinine 0.69 (0.52-1.04) mg/dL Est GFR (CKD-EPI)AfAm >90 (>60 ml/min/1.73 sqM) Est GFR (CKD-EPI)NonAf >90 (>60 ml/min/1.73 sqM) Glucose 93 (74-99) mg/dL Calcium 9.8 (8.4-10.2) mg/dL Total Bilirubin 0.4 (0.2-1.3) mg/dL Conjugated Bilirubin 0.0 (0.0-0.3) mg/dL Unconjugated Bilirubin 0.4 (0.0-1.1) mg/dL Delta Bilirubin 0.0 (0.0-0.2) mg/dL AST 26 (14-36) U/L ALT 31 (9-52) U/L Alkaline Phosphatase 70 (38-126) U/L Total Protein 7.5 (6.3-8.2) g/dL Albumin 4.4 (3.5-5.0) g/dL HCG, Qual Not Detected Urine Color Yellow Urine Appearance Clear (Clear) Urine pH 7.5 (5.0-8.0) Ur Specific [place] 1.017 (1.001-1.035) Urine Protein Negative (Negative) Urine Glucose (UA) Negative (Negative) Urine Ketones Negative (Negative) Urine Blood Negative (Negative) Urine Nitrite Negative (Negative) Urine Bilirubin Negative (Negative) Urine Urobilinogen <2.0 (<2.0) mg/dL Ur Leukocyte Esterase Negative (Negative) Disposition Clinical Impression: Swelling Disposition: HOME SELF-CARE Condition: Good Instructions (If sedation given, give patient instructions): Edema (ED), Atypical Facial Pain (ED) Is patient prescribed a controlled substance at d/c from ED?: No Referrals: None,Stated [Primary Care Provider] - 1-2 days Ernesto Morton MD [Medical Doctor] - 1-2 days
[2019-06-21 20:27] VITALS: BP 124/81; PULSE 78; TEMP 97.5
== END 2019-06-21 20:28 | disposition home or self-care (01) ==
LOC: EC 17:59
DX: M79.89 Other specified soft tissue disorders (principal); R51 Headache; F17.200 Nicotine dependence, unspecified, uncomplicated
CPT/HCPCS: 36415; 80048; 80076; 81003; 84703; 85025; 99283

== ENCOUNTER → 2019-07-06 | Outpatient (CLI) | payer OTHER ==
--- NOTE | 2019-07-06 20:46 | US ---
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 Left facial drooping, left body side numbness with sharp tingli ng in left hand; smoker EXAM MEASUREMENTS: RIGHT: Peak Systolic Velocity (PSV) cm/sec ----- Right CCA: 93.0 ----- Right ICA: 116.0 ----- Right ECA: 95.4 ICA/CCA ratio: 1.2 RIGHT: End Diastole cm/sec ----- Right CCA: 30.3 ----- Right ICA: 46.1 ----- Right ECA: 24.1 LEFT: Peak Systolic Velocity (PSV) cm/sec ----- Left CCA: 97.8 ----- Left ICA: 103.0 ----- Left ECA: 111.4 ICA/CCA ratio: 1.1 LEFT: End Diastole cm/sec ----- Left CCA: 31.8 ----- Left ICA: 30.5 ----- Left ECA: 19.8 VERTEBRALS (direction of flow): Right Vertebral: Antegrade Left Vertebral: Antegrade Rhythm: Normal Grayscale images show no significant focal plaque at bilateral carotid bulb level. Systolic velocity measurements and ratios in visualized portion of both internal carotid arteries is within normal limi ts. IMPRESSION: No hemodynamically significant stenosis is seen in either internal carotid artery . Criteria for Assigning % of Stenosis / Diameter reduction (Estimation based on the indirect measurements of the internal carotid artery velocities (ICA PSV). 1. Normal (no stenosis)=ICA PSV < 125 cm/s: ratio < 2.0: ICA EDV<40 cm/s. 2. Less than 50% stenosis=ICA PSV < 125 cm/s: ratio < 2.0: ICA EDV<40 cm/s. 3. 50 to 69% stenosis=ICA PSV of 125 to 230 cm/s: ration 2.0 ? 4.0: ICA EDV 40-100 cm/s. 4. Greater than 70% stenosis to near occlusion= ICA PSV > 230 cm/s: ratio > 4.0: ICA EDV > 100 cm/s. 5. Near occlusion= ICA PSV velocities may be low or undetectable: variable ratio and ICA EDV. 6. Total occlusion=unable to detect flow.
== END | disposition home or self-care (01) ==
LOC: RADUSMAIN 17:23
PROVIDERS: ATTEND Internal Medicine
DX: G51.0 Bell's palsy (principal)
CPT/HCPCS: 93880

== ENCOUNTER → 2019-07-10 | Outpatient (CLI) | payer OTHER ==
[2019-07-10 16:48] LABS: Rheumatoid Factor <4 IU/mL (0-15)
[2019-07-14 11:09] LABS: Lyme IgG/IgM 0.08 Index
== END | disposition home or self-care (01) ==
LOC: LABWHC1 11:47
PROVIDERS: ATTEND Otolaryngology
DX: G83.89 Other specified paralytic syndromes (principal); R53.83 Other fatigue; M25.50 Pain in unspecified joint
CPT/HCPCS: 36415; 86038; 86431; 86618

== ENCOUNTER 2019-07-14 18:14 | Emergency (ER) | payer OTHER ==
[2019-07-14 18:31] VITALS: RESP 18
[2019-07-14] MEDS ORDERED: SODIUM CHLORIDE 0.9% 500 ML 500 ML IV STA (19:13)
--- NOTE | 2019-07-14 19:28 | ED ---
General Adult HPI - General Chief complaint: Dizziness Stated complaint: Chest pressure, high BP,lt side pain Time Seen by Provider: 07/14/19 19:04 Source: patient Mode of arrival: wheelchair Limitations: no limitations - History of Present Illness Initial comments: 28-year-old female patient presents to the emergency department today for evaluation after she was having chest pressure and shortness of breath. Patient states she was driving to work when she had onset of chest pressure, states it felt like someone was standing on her chest. Patient states she became very short of breath. States the episode lasted for 20 minutes and she became very scared. Patient states for the last 3 weeks she has been having symptoms of intermittent left-sided pain. Patient states she has had a numb feeling to the left side of her body and feels like it is swollen. She is seeing a primary care physician and having this evaluated. This is the first time she has had chest pain. She denies any recent travel, leg swelling, history of VTE, or active cancer. Patient denies any recent rash, fever, chills, abdominal pain, nausea, vomiting, diarrhea, constipation, back pain, numbness, tingling, dizziness, weakness, hematuria, dysuria, urinary urgency, urinary frequency, headache, visual changes, or any other complaints. - Related Data Home Medications Medication Instructions Recorded Confirmed Gabapentin [Neurontin] 300 mg PO HS 07/14/19 07/14/19 Ibuprofen [Motrin] 600 mg PO Q6HR PRN 07/14/19 07/14/19 predniSONE See Taper PO HS 07/14/19 07/14/19 Allergies Allergy/AdvReac Type Severity Reaction Status Date / Time No Known Allergies Allergy Verified 07/14/19 19:31 Review of Systems ROS Statement: Those systems with pertinent positive or pertinent negative responses have been documented in the HPI. ROS Other: All systems not noted in ROS Statement are negative. Past Medical History Past Medical History: No Reported History History of Any Multi-Drug Resistant Organisms: C-DIFF Date of last positivie culture/infection: 2015 MDRO Source:: C-Diff Past Surgical History: Adenoidectomy, Section, Ear Surgery, Hernia Repair, Tonsillectomy Additional Past Surgical History / Comment(s): tubes in ears, colonoscopy and EGD 2016, knee surgery Past Anesthesia/Blood Transfusion Reactions: No Reported Reaction Past Psychological History: Anxiety Smoking Status: Current every day smoker Past Alcohol Use History: Rare Past Drug Use History: None Reported - Past Family History Mother History Unknown: Yes Family Medical History: Cancer General Exam Limitations: no limitations General appearance: alert, in no apparent distress, other (This is a well- developed, well-nourished adult female patient in no acute distress. Vital signs upon presentation are temperature 98.0F, pulse 90, respirations 18, blood pressure 124/83, pulse ox 100% on room air.) Eye exam: Present: normal appearance, PERRL, EOMI. Absent: scleral icterus, conjunctival injection, periorbital swelling ENT exam: Present: normal exam, normal oropharynx, mucous membranes moist Respiratory exam: Present: normal lung sounds bilaterally. Absent: respiratory distress, wheezes, rales, rhonchi, stridor Cardiovascular Exam: Present: regular rate, normal rhythm, normal heart sounds. Absent: systolic murmur, diastolic murmur, rubs, gallop, clicks GI/Abdominal exam: Present: soft, normal bowel sounds. Absent: distended, tenderness, guarding, rebound, rigid Neurological exam: Present: alert, oriented X3, CN II-XII intact Psychiatric exam: Present: normal affect, normal mood Skin exam: Present: warm, dry, intact, normal color. Absent: rash Course Vital Signs 07/14/19 07/14/19 18:29 22:58 Temperature 98.0 F 97.9 F Pulse Rate 90 84 Respiratory 18 18 Rate Blood Pressure 124/83 139/71 O2 Sat by Pulse 100 98 Oximetry EKG Findings - EKG Comments: EKG Findings:: EKG obtained at 1947 shows normal sinus rhythm with a ventricular rate of 73, KS interval 164, QRS duration 90, QT 366, QTc 403. No evidence of ST elevation or depression. Medical Decision Making - Medical Decision Making 28-year-old female patient presents to the emergency department today for evaluation of chest pressure and shortness of breath. Patient is also reporting some left-sided pain and swelling that has been going on for the last 3-4 weeks. She is currently being evaluated for this by her primary care physician. Physical examination is unremarkable. Lungs are clear to auscultation with good air movement. I appreciate no swelling upon physical exam. Chest x-ray showed no acute cardiopulmonary process. Labs reviewed and are unremarkable. Troponin negative. I did discuss findings and results with the patient. She is requesting discharge home. She is instructed to follow-up with her primary care physician for recheck in 1-2 days. Return parameters discussed in detail. She verbalizes understanding and agrees with this plan. - Lab Data Result diagrams: 07/14/19 20:26 07/14/19 20:26 Lab Results 07/14/19 07/14/19 07/14/19 Range/Units 20:26 20:26 20:26 WBC 14.7 H (3.8-10.6) k/uL RBC 4.70 (3.80-5.40) m/uL Hgb 14.5 (11.4-16.0) gm/dL Hct 44.2 (34.0-46.0) % MCV 94.2 (80.0-100.0) fL MCH 30.9 (25.0-35.0) pg MCHC 32.8 (31.0-37.0) g/dL RDW 13.0 (11.5-15.5) % Plt Count 409 (150-450) k/uL Neutrophils % 69 % Lymphocytes % 24 % Monocytes % 5 % Eosinophils % 2 % Basophils % 1 % Neutrophils # 10.0 H (1.3-7.7) k/uL Lymphocytes # 3.5 (1.0-4.8) k/uL Monocytes # 0.7 (0-1.0) k/uL Eosinophils # 0.3 (0-0.7) k/uL Basophils # 0.1 (0-0.2) k/uL PT 9.5 (9.0-12.0) sec INR 0.9 (<1.2) APTT 23.6 (22.0-30.0) sec Sodium 140 (137-145) mmol/L Potassium 4.0 (3.5-5.1) mmol/L Chloride 109 H (98-107) mmol/L Carbon Dioxide 22 (22-30) mmol/L Anion Gap 9 mmol/L BUN 13 (7-17) mg/dL Creatinine 0.70 (0.52-1.04) mg/dL Est GFR (CKD-EPI)AfAm >90 (>60 ml/min/1.73 sqM) Est GFR (CKD-EPI)NonAf >90 (>60 ml/min/1.73 sqM) Glucose 78 (74-99) mg/dL Calcium 9.5 (8.4-10.2) mg/dL Magnesium 2.4 H (1.6-2.3) mg/dL Total Bilirubin 0.3 (0.2-1.3) mg/dL AST 24 (14-36) U/L ALT 27 (9-52) U/L Alkaline Phosphatase 66 (38-126) U/L Troponin I (0.000-0.034) ng/mL Total Protein 7.2 (6.3-8.2) g/dL Albumin 4.2 (3.5-5.0) g/dL 07/14/19 Range/Units 20:26 WBC (3.8-10.6) k/uL RBC (3.80-5.40) m/uL Hgb (11.4-16.0) gm/dL Hct (34.0-46.0) % MCV (80.0-100.0) fL MCH (25.0-35.0) pg MCHC (31.0-37.0) g/dL RDW (11.5-15.5) % Plt Count (150-450) k/uL Neutrophils % % Lymphocytes % % Monocytes % % Eosinophils % % Basophils % % Neutrophils # (1.3-7.7) k/uL Lymphocytes # (1.0-4.8) k/uL Monocytes # (0-1.0) k/uL Eosinophils # (0-0.7) k/uL Basophils # (0-0.2) k/uL PT (9.0-12.0) sec INR (<1.2) APTT (22.0-30.0) sec Sodium (137-145) mmol/L Potassium (3.5-5.1) mmol/L Chloride (98-107) mmol/L Carbon Dioxide (22-30) mmol/L Anion Gap mmol/L BUN (7-17) mg/dL Creatinine (0.52-1.04) mg/dL Est GFR (CKD-EPI)AfAm (>60 ml/min/1.73 sqM) Est GFR (CKD-EPI)NonAf (>60 ml/min/1.73 sqM) Glucose (74-99) mg/dL Calcium (8.4-10.2) mg/dL Magnesium (1.6-2.3) mg/dL Total Bilirubin (0.2-1.3) mg/dL AST (14-36) U/L ALT (9-52) U/L Alkaline Phosphatase (38-126) U/L Troponin I <0.012 (0.000-0.034) ng/mL Total Protein (6.3-8.2) g/dL Albumin (3.5-5.0) g/dL - Radiology Data Radiology results: report reviewed, image reviewed Two-view x-ray of the chest is obtained. Report reviewed in its entirety. Impression by Dr. Abhilash Martin shows no acute process. Disposition Clinical Impression: Chest pain Disposition: HOME SELF-CARE Condition: Good Instructions (If sedation given, give patient instructions): Chest Pain (ED) Additional Instructions: Follow with your primary care physician and the neurologist as you have planned. Return to the emergency department immediately for any new, worsening, or concerning symptoms. Is patient prescribed a controlled substance at d/c from ED?: No Referrals: Ernesto Morton MD [Primary Care Provider] - 1-2 days Time of Disposition: 22:12
[2019-07-14 20:40] LABS: Basophils # (A) 0.1 k/uL (0-0.2); Basophils % (A) 1 %; Eosinophils # (A) 0.3 k/uL (0-0.7); Eosinophils % (A) 2 %; HCT 44.2 % (34.0-46.0); HGB 14.5 gm/dL (11.4-16.0); Lymphocytes # (A) 3.5 k/uL (1.0-4.8); Lymphocytes % (A) 24 %; MCH 30.9 pg (25.0-35.0); MCHC 32.8 g/dL (31.0-37.0); MCV 94.2 fL (80.0-100.0); Mean Platelet Volume 6.6; Monocytes # (A) 0.7 k/uL (0-1.0); Monocytes % (A) 5 %; Neutrophils % (A) 69 %; Platelet Count 409 k/uL (150-450); WBC 14.7 k/uL (3.8-10.6)
[2019-07-14 20:48] LABS: INR 0.9 (<1.2); Partial Thromboplastin Time 23.6 sec (22.0-30.0); Prothrombin Time 9.5 sec (9.0-12.0)
[2019-07-14 20:58] LABS: ALT 27 U/L (9-52); AST 24 U/L (14-36); African American GFR (CKD) >90 (>60 ml/min/1.73 sqM); Albumin 4.2 g/dL (3.5-5.0); Alkaline Phosphatase 66 U/L (38-126); Anion Gap 9 mmol/L; Blood Urea Nitrogen 13 mg/dL (7-17); Calcium 9.5 mg/dL (8.4-10.2); Carbon Dioxide 22 mmol/L (22-30); Chloride 109 mmol/L (98-107); Glucose 78 mg/dL (74-99); Magnesium 2.4 mg/dL (1.6-2.3); Sodium 140 mmol/L (137-145); Total Bilirubin 0.3 mg/dL (0.2-1.3); Total Protein 7.2 g/dL (6.3-8.2)
--- NOTE | 2019-07-14 21:30 | XR ---
EXAMINATION: XR chest 2V DATE AND TIME: 07/14/2019 8:55 PM CLINICAL INDICATION: PHH; Chest Pain TECHNIQUE: Departmental protocol COMPARISON: None FINDINGS: The lungs are clear. The pleural spaces are negative. The cardiac silhouette is not enlarged. The remainder of the mediastinal silhouette is unremarkable. The skeletal structures and soft tissues are negative for acute findings. IMPRESSION: NO ACUTE PROCESS.
[2019-07-14 22:59] VITALS: BP 139/71; PULSE 84; TEMP 97.9
== END 2019-07-14 22:57 | disposition home or self-care (01) ==
LOC: EC 18:14
DX: R07.9 Chest pain, unspecified (principal); R06.02 Shortness of breath; R20.0 Anesthesia of skin; F41.9 Anxiety disorder, unspecified; F17.200 Nicotine dependence, unspecified, uncomplicated; Z79.52 Long term (current) use of systemic steroids; Z79.899 Other long term (current) drug therapy
CPT/HCPCS: 36415; 71046; 80053; 83735; 84484; 85025; 85610; 85730; 93005; 99284

== ENCOUNTER → 2019-07-16 | Outpatient (CLI) | payer OTHER ==
--- NOTE | 2019-07-17 10:31 | ECHOF ---
Referral Reason:R53.1 weakness MEASUREMENTS -------- HEIGHT: 160.0 cm WEIGHT: 99.8 kg BP: RVIDd: 2.1 cm (< 3.3) IVSd: 0.9 cm (0.6 - 1.1) LVIDd: 4.1 cm (3.9 - 5.3) LVPWd: 1.1 cm (0.6 - 1.1) IVSs: 1.5 cm LVIDs: 2.5 cm LVPWs: 1.5 cm LA Diam: 2.7 cm (2.7 - 3.8) LAESV Index (A-L): 18.37 ml/m Ao Diam: 3.0 cm (2.0 - 3.7) AV Cusp: 1.9 cm (1.5 - 2.6) LA Diam: 3.0 cm (2.7 - 3.8) MV EXCURSION: 13.254 mm (> 18.000) MV EF SLOPE: 88 mm/s (70 - 150) EPSS: 0.3 cm MV E Butch: 0.60 m/s MV DecT: 256 ms MV A Butch: 0.79 m/s MV E/A Ratio: 0.76 RAP: 5.00 mmHg RVSP: 19.22 mmHg FINDINGS -------- Sinus rhythm. This was a technically adequate study. LV size, wall thickness and systolic function are normal, with an EF greater than 55%. The left merry tricular size is normal. The right ventricle is normal in size. The left atrial size is normal. Normal LA size by volume 22+/-6 ml/m2. The right atrial size is normal. There is mild aortic valve sclerosis. There is no evidence of aortic regurgitation. Mild mitral annular calcification present. Mild mitral regurgitation is present. Mild tricuspid regurgitation present. There is no evidence of pulmonary hypertension. The right v entricular systolic pressure, as measured by Doppler, is 19.22mmHg. There is no pulmonic regurgitation present. The aortic root size is normal. There is no pericardial effusion. CONCLUSIONS -------- 1. Sinus rhythm. 2. This was a technically adequate study. 3. LV size, wall thickness and systolic function are normal, with an EF greater than 55%. 4. The left ventricular size is normal. 5. The right ventricle is normal in size. 6. The left atrial size is normal. 7. Normal LA size by volume 22+/-6 ml/m2. 8. The right atrial size is normal. 9. There is mild aortic valve sclerosis. 10. Mild mitral annular calcification present. 11. Mild mitral regurgitation is present. 12. Mild tricuspid regurgitation present. 13. There is no evidence of pulmonary hypertension. 14. The right ventricular systolic pressure, as measured by Doppler, is 19.22mmHg. 15. There is no pulmonic regurgitation present. 16. The aortic root size is normal. 17. There is no pericardial effusion. LUMBER MARKER: Dilia Haynes RDCS
== END | disposition home or self-care (01) ==
LOC: RADECHMAIN 14:02
PROVIDERS: ATTEND Internal Medicine
DX: I08.3 Combined rheumatic disorders of mitral, aortic and tricuspid valves (principal)
CPT/HCPCS: 93306

== ENCOUNTER 2019-09-23 20:16 | Emergency (ER) | payer OTHER ==
[2019-09-23 21:01] VITALS: RESP 18
[2019-09-23] MEDS ORDERED: SODIUM CHLORIDE 0.9% 1,000 ML IV STA (21:37)
[2019-09-23 21:44] LABS: Appearance,Urine Cloudy (Clear); Bacteria,Urine Rare /hpf; Bilirubin,Urine Negative (Negative); Blood,Urine Negative (Negative); Color,Urine Yellow; Glucose,Urine (UA) Negative (Negative); Ketones,Urine Negative (Negative); Leukocyte Esterase,Urine Negative (Negative); Mucus,Urine Rare /hpf; Nitrite,Urine Negative (Negative); Protein,Urine Negative (Negative); RBC,Urine 1 /hpf (0-5); Specific Gravity,Urine 1.022 (1.001-1.035); Squamous Epithelial Cell,Urine 11 /hpf (0-4); Urobilinogen,Urine <2.0 mg/dL (<2.0)
--- NOTE | 2019-09-23 22:47 | ED ---
Abdominal Pain HPI - General Chief Complaint: Abdominal Pain Stated Complaint: R Side Pain-12 wks Source: patient Mode of arrival: ambulatory Limitations: no limitations - History of Present Illness Initial Comments: Toma is a 28yo F currently 12w who presents to the ER today for evaluation of RUQ abdominal pain. Patient presents to the emergency Department today reporting that yesterday evening she developed right upper quadrant abdominal pain, nausea and had episodes of nonbloody nonbilious emesis. She reports that throughout the day today she's had persistent nausea and right upper quadrant abdominal pain. Pain is worse with palpation. Patient is currently 12 weeks , [place] She's had ultrasound confirms single intrauterine . She's had no palpitations with this as of yet. - Related Data Home Medications Medication Instructions Recorded Confirmed Gabapentin [Neurontin] 300 mg PO HS 07/14/19 07/14/19 Ibuprofen [Motrin] 600 mg PO Q6HR PRN 07/14/19 07/14/19 predniSONE See Taper PO HS 07/14/19 07/14/19 Allergies Allergy/AdvReac Type Severity Reaction Status Date / Time No Known Allergies Allergy Verified 09/23/19 21:01 Review of Systems ROS Statement: Those systems with pertinent positive or pertinent negative responses have been documented in the HPI. ROS Other: All systems not noted in ROS Statement are negative. Past Medical History Past Medical History: No Reported History History of Any Multi-Drug Resistant Organisms: C-DIFF Date of last positivie culture/infection: 2015 MDRO Source:: C-Diff Past Surgical History: Adenoidectomy, Section, Ear Surgery, Hernia Repair, Tonsillectomy Additional Past Surgical History / Comment(s): tubes in ears, colonoscopy and EGD 2016, knee surgery Past Anesthesia/Blood Transfusion Reactions: No Reported Reaction Past Psychological History: Anxiety Smoking Status: Current every day smoker Past Alcohol Use History: None Reported Past Drug Use History: None Reported - Past Family History Mother History Unknown: Yes Family Medical History: Cancer General Exam - General Exam Comments Initial Comments: Physical Exam GENERAL: Patient is well-developed and well-nourished. Patient is nontoxic and well- hydrated and is in no distress. HENT: Normocephalic, Atraumatic. EYES: PERRL, EOMI PULMONARY: Unlabored respirations. No audible rales rhonchi or wheezing was noted. CARDIOVASCULAR: There is a regular rate and rhythm without any murmurs gallops or rubs. ABDOMEN: Tenderness to palpation right upper quadrant, positive Turner's sign Obese, normal active bowel sounds SKIN: Skin is clear with no lesions or rashes and otherwise unremarkable. : Deferred NEUROLOGIC: Patient is alert and oriented x3. Moving all extremities spontaneously MUSCULOSKELETAL: Normal extremities with adequate strength and full range of motion. No lower extremity swelling or edema. No calf tenderness. PSYCHIATRIC: Normal psychiatric evaluation. Limitations: no limitations Course Vital Signs 09/23/19 09/23/19 20:58 23:06 Temperature 98.3 F 98.2 F Pulse Rate 98 92 Respiratory 18 18 Rate Blood Pressure 120/62 93/53 O2 Sat by Pulse 96 97 Oximetry Medical Decision Making - Medical Decision Making She was seen and evaluated, history is obtained from patient, history and physical exam are concerning for biliary colic. Offered patient Tylenol for pain. Labs were obtained with no significant abnormalities, mild elevated of inflammatory markers her versus normal . Transaminases are normal. Bilirubin is normal. Ultrasound with a contracted gallbladder. Results were discussed with the patient. Dietary modifications were discussed. Follow up with primary care, OB were discussed. All questions pertaining were answered return parameters discussed patient discharged home in stable condition. - Lab Data Result diagrams: 09/23/19 22:55 09/23/19 22:13 Lab Results 09/23/19 09/23/19 09/23/19 Range/Units 21:20 22:13 22:24 WBC (3.8-10.6) k/uL RBC (3.80-5.40) m/uL Hgb (11.4-16.0) gm/dL Hct (34.0-46.0) % MCV (80.0-100.0) fL MCH (25.0-35.0) pg MCHC (31.0-37.0) g/dL RDW (11.5-15.5) % Plt Count (150-450) k/uL Neutrophils % % Lymphocytes % % Monocytes % % Eosinophils % % Basophils % % Neutrophils # (1.3-7.7) k/uL Lymphocytes # (1.0-4.8) k/uL Monocytes # (0-1.0) k/uL Eosinophils # (0-0.7) k/uL Basophils # (0-0.2) k/uL ESR 26 H (0-20) mm/hr Sodium 137 (137-145) mmol/L Potassium 4.1 (3.5-5.1) mmol/L Chloride 112 H (98-107) mmol/L Carbon Dioxide 18 L (22-30) mmol/L Anion Gap 7 mmol/L BUN 9 (7-17) mg/dL Creatinine 0.53 (0.52-1.04) mg/dL Est GFR (CKD-EPI)AfAm >90 (>60 ml/min/1.73 sqM) Est GFR (CKD-EPI)NonAf >90 (>60 ml/min/1.73 sqM) Glucose 75 (74-99) mg/dL Calcium 9.4 (8.4-10.2) mg/dL Total Bilirubin 0.2 (0.2-1.3) mg/dL AST 27 (14-36) U/L ALT 29 (9-52) U/L Alkaline Phosphatase 59 (38-126) U/L C-Reactive Protein 27.1 H (<10.0) mg/L Total Protein 6.5 (6.3-8.2) g/dL Albumin 3.6 (3.5-5.0) g/dL Lipase 183 (23-300) U/L Urine Color Yellow Urine Appearance Cloudy H (Clear) Urine pH 6.0 (5.0-8.0) Ur Specific [place] 1.022 (1.001-1.035) Urine Protein Negative (Negative) Urine Glucose (UA) Negative (Negative) Urine Ketones Negative (Negative) Urine Blood Negative (Negative) Urine Nitrite Negative (Negative) Urine Bilirubin Negative (Negative) Urine Urobilinogen <2.0 (<2.0) mg/dL Ur Leukocyte Esterase Negative (Negative) Urine RBC 1 (0-5) /hpf Urine WBC 3 (0-5) /hpf Ur Squamous Epith Cells 11 H (0-4) /hpf Urine Bacteria Rare H (None) /hpf Urine Mucus Rare H (None) /hpf 09/23/19 Range/Units 22:55 WBC 11.1 H (3.8-10.6) k/uL RBC 4.04 (3.80-5.40) m/uL Hgb 12.8 (11.4-16.0) gm/dL Hct 38.3 (34.0-46.0) % MCV 94.6 (80.0-100.0) fL MCH 31.6 (25.0-35.0) pg MCHC 33.4 (31.0-37.0) g/dL RDW 12.9 (11.5-15.5) % Plt Count 337 (150-450) k/uL Neutrophils % 68 % Lymphocytes % 24 % Monocytes % 5 % Eosinophils % 2 % Basophils % 0 % Neutrophils # 7.5 (1.3-7.7) k/uL Lymphocytes # 2.7 (1.0-4.8) k/uL Monocytes # 0.6 (0-1.0) k/uL Eosinophils # 0.2 (0-0.7) k/uL Basophils # 0.1 (0-0.2) k/uL ESR (0-20) mm/hr Sodium (137-145) mmol/L Potassium (3.5-5.1) mmol/L Chloride (98-107) mmol/L Carbon Dioxide (22-30) mmol/L Anion Gap mmol/L BUN (7-17) mg/dL Creatinine (0.52-1.04) mg/dL Est GFR (CKD-EPI)AfAm (>60 ml/min/1.73 sqM) Est GFR (CKD-EPI)NonAf (>60 ml/min/1.73 sqM) Glucose (74-99) mg/dL Calcium (8.4-10.2) mg/dL Total Bilirubin (0.2-1.3) mg/dL AST (14-36) U/L ALT (9-52) U/L Alkaline Phosphatase (38-126) U/L C-Reactive Protein (<10.0) mg/L Total Protein (6.3-8.2) g/dL Albumin (3.5-5.0) g/dL Lipase (23-300) U/L Urine Color Urine Appearance (Clear) Urine pH (5.0-8.0) Ur Specific [place] (1.001-1.035) Urine Protein (Negative) Urine Glucose (UA) (Negative) Urine Ketones (Negative) Urine Blood (Negative) Urine Nitrite (Negative) Urine Bilirubin (Negative) Urine Urobilinogen (<2.0) mg/dL Ur Leukocyte Esterase (Negative) Urine RBC (0-5) /hpf Urine WBC (0-5) /hpf Ur Squamous Epith Cells (0-4) /hpf Urine Bacteria (None) /hpf Urine Mucus (None) /hpf Disposition Clinical Impression: Biliary colic Disposition: HOME SELF-CARE Condition: Stable Instructions (If sedation given, give patient instructions): Abdominal Pain in (ED) Is patient prescribed a controlled substance at d/c from ED?: No Referrals: Ernesto Morton MD [Primary Care Provider] - 1-2 days Dejon Blanton MD [REFERRING] - 1-2 days
[2019-09-23 22:55] LABS: ALT 29 U/L (9-52); AST 27 U/L (14-36); African American GFR (CKD) >90 (>60 ml/min/1.73 sqM); Albumin 3.6 g/dL (3.5-5.0); Alkaline Phosphatase 59 U/L (38-126); Anion Gap 7 mmol/L; Blood Urea Nitrogen 9 mg/dL (7-17); C Reactive Protein 27.1 mg/L (<10.0); Calcium 9.4 mg/dL (8.4-10.2); Carbon Dioxide 18 mmol/L (22-30); Chloride 112 mmol/L (98-107); Glucose 75 mg/dL (74-99); Potassium 4.1 mmol/L (3.5-5.1); Sodium 137 mmol/L (137-145); Total Bilirubin 0.2 mg/dL (0.2-1.3); Total Protein 6.5 g/dL (6.3-8.2)
[2019-09-23 23:02] LABS: Basophils # (A) 0.1 k/uL (0-0.2); Basophils % (A) 0 %; Eosinophils # (A) 0.2 k/uL (0-0.7); Eosinophils % (A) 2 %; HCT 38.3 % (34.0-46.0); HGB 12.8 gm/dL (11.4-16.0); Lymphocytes # (A) 2.7 k/uL (1.0-4.8); Lymphocytes % (A) 24 %; MCH 31.6 pg (25.0-35.0); MCHC 33.4 g/dL (31.0-37.0); MCV 94.6 fL (80.0-100.0); Mean Platelet Volume 6.4; Monocytes # (A) 0.6 k/uL (0-1.0); Monocytes % (A) 5 %; Neutrophils # (A) 7.5 k/uL (1.3-7.7); Neutrophils % (A) 68 %; Platelet Count 337 k/uL (150-450); RBC 4.04 m/uL (3.80-5.40); RDW 12.9 % (11.5-15.5); WBC 11.1 k/uL (3.8-10.6)
[2019-09-23 23:08] VITALS: BP 93/53; PULSE 92; TEMP 98.2
--- NOTE | 2019-09-23 23:57 | US ---
EXAMINATION TYPE: US gallbladder DATE OF EXAM: 09/23/2019 COMPARISON: US, CT CLINICAL HISTORY: RUQ pain, . RUQ pain x 17 hours. Nausea, vomiting. Patient is 12 weeks pr egnant. EXAM MEASUREMENTS: Liver Length: 15.3 cm Gallbladder Wall: 0.19 cm CBD: 0.35 cm Right Kidney: 9.5 x 5.7 x 4.3 cm Limited due to gas. Pancreas: Partially obscured by overlying bowel gas Liver: Appears to be wnl Gallbladder: Appears partially contracted. Evidence for sonographic Turner's sign: Area of pain was while scanning over gallbladder. CBD: Appears to be wnl Right Kidney: No hydronephrosis or masses seen IMPRESSION: Contracted gallbladder. No gallstones. No dilated ducts.
== END 2019-09-24 01:43 | disposition home or self-care (01) ==
LOC: EC 20:16
DX: O26.611 Liver and biliary tract disorders in pregnancy, first trimester (principal); K80.50 Calculus of bile duct without cholangitis or cholecystitis without obstruction; O99.331 Smoking (tobacco) complicating pregnancy, first trimester; F17.200 Nicotine dependence, unspecified, uncomplicated; Z3A.12 12 weeks gestation of pregnancy; Z79.899 Other long term (current) drug therapy; Z79.51 Long term (current) use of inhaled steroids
CPT/HCPCS: 36415; 76705; 80053; 81001; 83690; 85025; 85652; 86140; 96360; 99284

== ENCOUNTER → 2019-09-25 | Outpatient (CLI) | payer OTHER ==
--- NOTE | 2019-09-26 15:46 | MR ---
EXAMINATION TYPE: MR brain wo con DATE OF EXAM: 09/25/2019 COMPARISON: None HISTORY: Headache / Facial nerve disorder, weakness and numbness left side Standard multiplanar, multisequence MRI departmental protocol Multiplanar, multisequence images of the brain were acquired. Diffusion weighted imaging was performe d. FINDINGS: Ventricles have normal size. There is no mass effect nor midline shift. There is no sign of intracranial hemorrhage. Calvarium appears intact. The corpus callosum is intact. There is no eviden ce of cortical infarct. There is no evidence of cerebral edema. Leach-white matter structures have lubna rly normal signal pattern. Brainstem appears normal. Sella turcica is normal. IMPRESSION: Normal MR scan of the brain.
== END | disposition home or self-care (01) ==
LOC: RADMRIMAIN 14:43
PROVIDERS: ATTEND Psychiatry & Neurology Neurology
DX: R51 Headache (principal); G51.9 Disorder of facial nerve, unspecified; H53.9 Unspecified visual disturbance
CPT/HCPCS: 70551

== ENCOUNTER 2019-12-19 21:22 | Outpatient (CLI) | payer OTHER ==
[2019-12-19] MEDS ORDERED: ONDANSETRON 4 MG/2 ML VIAL IVP STA (22:24)
[2019-12-19] MEDS: LACTATED RINGERS 1,000 ML IV SCH ×2 (22:43→23:45)
[2019-12-20 00:15] LABS: Appearance,Urine Cloudy (Clear); Bilirubin,Urine Negative (Negative); Blood,Urine Negative (Negative); Color,Urine Yellow; Glucose,Urine (UA) Negative (Negative); Ketones,Urine 4+ (Negative); Leukocyte Esterase,Urine Negative (Negative); Mucus,Urine Many /hpf; Nitrite,Urine Negative (Negative); Protein,Urine 1+ (Negative); RBC,Urine 1 /hpf (0-5); Specific Gravity,Urine 1.031 (1.001-1.035); Squamous Epithelial Cell,Urine 5 /hpf (0-4); WBC,Urine 4 /hpf (0-5)
[2019-12-20 00:16] LABS: Amphetamine Screen,Urine Not Detected (NotDetected); Barbiturate Screen,Urine Not Detected (NotDetected); Benzodiazepines Screen,Urine Not Detected (NotDetected); Cocaine Screen,Urine Not Detected (NotDetected); Methadone Screen, Urine Not Detected (NotDetected); Opiate Screen,Urine Not Detected (NotDetected); Oxycodone Screen, Urine Not Detected (NotDetected); Phencyclidine Screen,Urine Not Detected (NotDetected); Tricyclic Antidepressant,Urine Not Detected (NotDetected); Urn Cannabinoid Scrn Detected (NotDetected)
[2019-12-20] MEDS ORDERED: DEXTROSE 5%-LACTATED RINGERS 1,000 ML IV SCH (00:30)
[2019-12-20 01:43] VITALS: BP 111/71; PULSE 131; RESP 18; TEMP 98.2
--- NOTE | 2019-12-20 10:30 | P.MSEPDOC ---
Presenting Problems - Arrival Data Date of Arrival on Unit: 12/20/19 Time of Arrival on Unit: 21:22 Mode of Transport: Ambulatory - Complaint OB-Reason for Admission/Chief Complaint: Acute Nausea/Vomiting Comment: pt presented to triage for N/V and diarreha since this am Medical History - Information : 2 Para: 1 Term: 1 : 0 Abortions: Spontaneous or Elective: 0 Number of Living Children: 1 - Gestational Age Gestational Age by MONY (wks/days): 25 Weeks and 2 Days - History Complications: Prior , Smoker Review of Systems - Review of Systems Constitutional: No problems Breast: No problems ENT: No problems Cardiovascular: No problems Respiratory: No problems Gastrointestinal: Diarrhea Genitourinary: No problems Musculoskeletal: No problems Neurological: No problems Skin: No problems Vital Signs - Temperature Temperature: 98.2 F Temperature Source: Temporal Artery Scan - Pulse Right Brachial Pulse Rate: 131 Pulse Assessment Method: Pulse Oximetry - Respirations Respiratory Rate: 18 Oxygen Delivery Method: Room Air O2 Sat by Pulse Oximetry: 97 - Blood Pressure Right Arm Blood Pressure: 111/71 Blood Pressure Mean: 84 Blood Pressure Source: Automatic Cuff Medical Screen Scoring (Pre) - Cervical Exam Dilation: Exam Deferred Effacement: Exam Deferred Membranes: Intact - Uterine Contractions Frequency: N/A Duration: N/A Intensity: N/A - Maternal Vital Signs Maternal Temperature: N/A Signs of Preeclampsia: N/A Maternal Respirations: N/A - Maternal Trauma Maternal Trauma: N/A - Assessment - Baby A Baseline FHR: 150 Heart Rate - NICHD Category: Category I (Normal) = 0 Position: N/A Station: N/A - Total Score - Baby A Total Score - Baby A: 0 - Total Score - Baby B Total Score - Baby B: 0 - Total Score - Baby C Total Score - Baby C: 0 - Level of Risk - Baby A Level of Risk - Baby A: Low (0-5) - Level of Risk - Baby B Level of Risk - Baby B: Low (0-5) - Level of Risk - Baby C Level of Risk - Baby C: Low (0-5) Physician Notification (Pre) - Physician Notified Physician Notified Date: 12/20/19 Physician Notified Time: 00:25 New Order Received: Yes - Notification Comment Comment: pt was treated with 1 dose of zofran and 2 1/2 liters of IVF, pt sipping on shae vick before she left and was feeling better, no more vomiting since arrival in triage, [place] Disposition - Disposition OB Disposition: Triage, Discharge to home, Written follow up instructions reviewed Discharge Date: 12/20/19 Discharge Time: 01:20 I agree with the RN Medical Screening Exam: Yes Risk & Benefit of care provided described in d/c instruction: Yes Diagnosis: VOMITING OF , UNSPECIFIED
== END 2019-12-20 01:15 | disposition home or self-care (01) ==
LOC: FBPOP 21:22
PROVIDERS: ATTEND Obstetrics & Gynecology
DX: O21.9 Vomiting of pregnancy, unspecified (principal); Z3A.25 25 weeks gestation of pregnancy
CPT/HCPCS: 96361; 96374; 81001; 80306; G0463; J2405; 99214

== ENCOUNTER 2020-09-15 13:34 | Emergency (ER) | payer OTHER ==
[2020-09-15 13:38] VITALS: RESP 18
[2020-09-15] MEDS ORDERED: MORPHINE SULFATE 4 MG/ML SYRINGE IV STA (13:56)
[2020-09-15] MEDS ORDERED: SODIUM CHLORIDE 0.9% 1,000 ML IV STA (13:56)
--- NOTE | 2020-09-15 14:01 | ED ---
General Adult HPI - General Chief complaint: Abdominal Pain Stated complaint: ABD pain Time Seen by Provider: 09/15/20 13:46 Source: patient, RN notes reviewed, old records reviewed Mode of arrival: wheelchair Limitations: no limitations - History of Present Illness Initial comments: 29-year-old female patient to ED for evaluation. Patient reports that she has been having some dysuria. On Saturday she went to urgent care and she is diagnosed with a urinary tract infection. Been taking Keflex twice a day. Patient reports that she is having pain primarily in her left flank. She reports that she isn't having nausea. She reports that she had fevers at home. She denies a chance of due to tubal ligation. Systemic: Pt denies fatigue, fever/chills, rash. Pt denies weakness, night sweats, weight loss. Neuro: Pt denies headache, visual disturbances, syncope or pre-syncope. HEENT: Pt denies ocular discharge or irritation, otalgia, rhinorrhea, pharyngitis or notable lymphadenopathy. Cardiopulmonary: Pt denies chest pain, SOB, heart palpitations, dyspnea on exertion. Abdominal/GI: Pt denies abdominal pain, n/v/d. : Denies new onset urinary or bowel incontinence. MSK: Pt denies myalgia, loss of strength or function in extremities. Neuro: Pt denies new onset weakness, paresthesias. - Related Data Home Medications Medication Instructions Recorded Confirmed Pnv No.95/Ferrous Fum/Folic AC 1 each PO DAILY 12/19/19 12/19/19 [ Multivitamin Tablet] Previous Rx's Medication Instructions Recorded Ciprofloxacin HCl [Cipro] 500 mg PO Q12HR 14 Days #28 day 09/15/20 Allergies Allergy/AdvReac Type Severity Reaction Status Date / Time No Known Allergies Allergy Verified 09/15/20 13:38 Review of Systems ROS Statement: Those systems with pertinent positive or pertinent negative responses have been documented in the HPI. ROS Other: All systems not noted in ROS Statement are negative. Past Medical History Past Medical History: No Reported History History of Any Multi-Drug Resistant Organisms: C-DIFF Date of last positivie culture/infection: 2015 MDRO Source:: C-Diff Past Surgical History: Adenoidectomy, Section, Ear Surgery, Hernia Repair, Tonsillectomy, Tubal Ligation Additional Past Surgical History / Comment(s): tubes in ears, colonoscopy and EGD 2016, knee surgery Past Anesthesia/Blood Transfusion Reactions: No Reported Reaction Past Psychological History: Anxiety Smoking Status: Current every day smoker Past Alcohol Use History: None Reported Past Drug Use History: None Reported - Past Family History Mother History Unknown: Yes Family Medical History: Cancer General Exam - General Exam Comments Initial Comments: Constitutional: NAD, AOX3, Pt has pleasant affect. HEENT: NC/AT, trachea midline, neck supple, no lymphadenopathy. Posterior pha rynx non erythematous, without exudates. External ears appear normal, without discharge. Mucous membranes moist. Eyes PERRLA, EOM intact. There is no scleral icterus. No pallor noted. Cardiopulmonary: RRR, no murmurs, rubs or gallops, no JVD noted. Lungs CTAB in anterior and posterior garcia. No peripheral edema. Abdominal exam: Abdomen soft and non-distended. Abdomen non-tender to palpation in all 4 quadrants. Bowel sounds active in LLQ. No hepatosplenomegaly. No ecchymosis. Mild left CVA tenderness. Neuro: CN II-XII grossly intact. No nuchal rigidity. No raccon eyes, no pompa sign, no hemotympanum. No cervical spinal tenderness. MSK: No posterior calf tenderness bilaterally, homans sign negative bilaterally. Posterior tibialis and radial pulse +2 bilaterally. Sensation intact in upper and lower extremities. Full active ROM in upper and lower extremities, 5/5 stregnth. Limitations: no limitations Course Vital Signs 09/15/20 13:35 Temperature 98.1 F Pulse Rate 105 H Respiratory 18 Rate Blood Pressure 112/65 O2 Sat by Pulse 98 Oximetry Medical Decision Making - Medical Decision Making 29-year-old female patient ED for left flank pain which is kidney function does report that she has had fevers at home. Reports nausea without emesis. Physical exam shows mild CVA tenderness. Laboratory investigation by a leukocytosis. mild UTI although the samples contaminated. CT confirmed left- sided pyelonephritis. Patient administered 2 g Rocephin emergency department as well as azithromycin. Will discharge at 2 weeks of ciprofloxacin and strict return precautions. Case discussed in depth with Dr. Barriga. - Lab Data Result diagrams: 09/15/20 14:02 09/15/20 14:02 Lab Results 09/15/20 09/15/20 09/15/20 Range/Units 14:02 14:02 14:02 WBC 10.7 H (3.8-10.6) k/uL RBC 4.31 (3.80-5.40) m/uL Hgb 13.0 (11.4-16.0) gm/dL Hct 40.7 (34.0-46.0) % MCV 94.4 (80.0-100.0) fL MCH 30.2 (25.0-35.0) pg MCHC 31.9 (31.0-37.0) g/dL RDW 13.6 (11.5-15.5) % Plt Count 353 (150-450) k/uL Neutrophils % 71 % Lymphocytes % 19 % Monocytes % 6 % Eosinophils % 3 % Basophils % 0 % Neutrophils # 7.6 (1.3-7.7) k/uL Lymphocytes # 2.0 (1.0-4.8) k/uL Monocytes # 0.6 (0-1.0) k/uL Eosinophils # 0.3 (0-0.7) k/uL Basophils # 0.0 (0-0.2) k/uL Sodium (137-145) mmol/L Potassium (3.5-5.1) mmol/L Chloride (98-107) mmol/L Carbon Dioxide (22-30) mmol/L Anion Gap mmol/L BUN (7-17) mg/dL Creatinine (0.52-1.04) mg/dL Est GFR (CKD-EPI)AfAm (>60 ml/min/1.73 sqM) Est GFR (CKD-EPI)NonAf (>60 ml/min/1.73 sqM) Glucose (74-99) mg/dL Plasma Lactic Acid Ismael (0.7-2.0) mmol/L Calcium (8.4-10.2) mg/dL Total Bilirubin (0.2-1.3) mg/dL AST (14-36) U/L ALT (4-34) U/L Alkaline Phosphatase (38-126) U/L Total Protein (6.3-8.2) g/dL Albumin (3.5-5.0) g/dL Lipase (23-300) U/L Urine Color Yellow Urine Appearance Cloudy H (Clear) Urine pH 6.0 (5.0-8.0) Ur Specific [place] 1.030 (1.001-1.035) Urine Protein 1+ H (Negative) Urine Glucose (UA) Negative (Negative) Urine Ketones Negative (Negative) Urine Blood Negative (Negative) Urine Nitrite Negative (Negative) Urine Bilirubin Negative (Negative) Urine Urobilinogen <2.0 (<2.0) mg/dL Ur Leukocyte Esterase Trace H (Negative) Urine RBC 4 (0-5) /hpf Urine WBC 17 H (0-5) /hpf Ur Squamous Epith Cells 18 H (0-4) /hpf Amorphous Sediment Rare H (None) /hpf Urine Bacteria Rare H (None) /hpf Urine Mucus Many H (None) /hpf Urine HCG, Qual Not Detected (Not Detectd) 09/15/20 09/15/20 Range/Units 14:02 14:02 WBC (3.8-10.6) k/uL RBC (3.80-5.40) m/uL Hgb (11.4-16.0) gm/dL Hct (34.0-46.0) % MCV (80.0-100.0) fL MCH (25.0-35.0) pg MCHC (31.0-37.0) g/dL RDW (11.5-15.5) % Plt Count (150-450) k/uL Neutrophils % % Lymphocytes % % Monocytes % % Eosinophils % % Basophils % % Neutrophils # (1.3-7.7) k/uL Lymphocytes # (1.0-4.8) k/uL Monocytes # (0-1.0) k/uL Eosinophils # (0-0.7) k/uL Basophils # (0-0.2) k/uL Sodium 139 (137-145) mmol/L Potassium 4.3 (3.5-5.1) mmol/L Chloride 110 H (98-107) mmol/L Carbon Dioxide 24 (22-30) mmol/L Anion Gap 5 mmol/L BUN 12 (7-17) mg/dL Creatinine 0.77 (0.52-1.04) mg/dL Est GFR (CKD-EPI)AfAm >90 (>60 ml/min/1.73 sqM) Est GFR (CKD-EPI)NonAf >90 (>60 ml/min/1.73 sqM) Glucose 103 H (74-99) mg/dL Plasma Lactic Acid Ismael 1.0 (0.7-2.0) mmol/L Calcium 9.0 (8.4-10.2) mg/dL Total Bilirubin 0.4 (0.2-1.3) mg/dL AST 16 (14-36) U/L ALT 18 (4-34) U/L Alkaline Phosphatase 64 (38-126) U/L Total Protein 6.5 (6.3-8.2) g/dL Albumin 3.5 (3.5-5.0) g/dL Lipase 222 (23-300) U/L Urine Color Urine Appearance (Clear) Urine pH (5.0-8.0) Ur Specific [place] (1.001-1.035) Urine Protein (Negative) Urine Glucose (UA) (Negative) Urine Ketones (Negative) Urine Blood (Negative) Urine Nitrite (Negative) Urine Bilirubin (Negative) Urine Urobilinogen (<2.0) mg/dL Ur Leukocyte Esterase (Negative) Urine RBC (0-5) /hpf Urine WBC (0-5) /hpf Ur Squamous Epith Cells (0-4) /hpf Amorphous Sediment (None) /hpf Urine Bacteria (None) /hpf Urine Mucus (None) /hpf Urine HCG, Qual (Not Detectd) Disposition Clinical Impression: Pyelonephritis Disposition: HOME SELF-CARE Condition: Stable Instructions (If sedation given, give patient instructions): Flank Pain (ED), Kidney Infection (ED) Additional Instructions: Follow up with PCP tomorrow. Take antibiotics as directed. Begin ciprofloxacin tomorrow. Return to ED with any worsening symptoms. Prescriptions: Ciprofloxacin HCl [Cipro] 500 mg PO Q12HR 14 Days #28 day Is patient prescribed a controlled substance at d/c from ED?: No Referrals: Ernesto Morton MD [Primary Care Provider] - 1-2 days
[2020-09-15 14:13] LABS: Basophils % (A) 0 %; Eosinophils # (A) 0.3 k/uL (0-0.7); Eosinophils % (A) 3 %; HCT 40.7 % (34.0-46.0); Lymphocytes % (A) 19 %; MCH 30.2 pg (25.0-35.0); MCHC 31.9 g/dL (31.0-37.0); MCV 94.4 fL (80.0-100.0); Mean Platelet Volume 7.1; Monocytes # (A) 0.6 k/uL (0-1.0); Monocytes % (A) 6 %; Neutrophils # (A) 7.6 k/uL (1.3-7.7); Neutrophils % (A) 71 %; Platelet Count 353 k/uL (150-450); RBC 4.31 m/uL (3.80-5.40); RDW 13.6 % (11.5-15.5); WBC 10.7 k/uL (3.8-10.6)
[2020-09-15 14:21] LABS: ALT 18 U/L (4-34); AST 16 U/L (14-36); African American GFR (CKD) >90 (>60 ml/min/1.73 sqM); Albumin 3.5 g/dL (3.5-5.0); Alkaline Phosphatase 64 U/L (38-126); Anion Gap 5 mmol/L; Blood Urea Nitrogen 12 mg/dL (7-17); Carbon Dioxide 24 mmol/L (22-30); Chloride 110 mmol/L (98-107); Glucose 103 mg/dL (74-99); Lipase 222 U/L (23-300); Non-African American GFR(CKD) >90 (>60 ml/min/1.73 sqM); Potassium 4.3 mmol/L (3.5-5.1); Sodium 139 mmol/L (137-145); Total Bilirubin 0.4 mg/dL (0.2-1.3); Total Protein 6.5 g/dL (6.3-8.2)
[2020-09-15 14:29] LABS: Amorphous Sediment,Urine Rare /hpf; Appearance,Urine Cloudy (Clear); Bacteria,Urine Rare /hpf; Bilirubin,Urine Negative (Negative); Blood,Urine Negative (Negative); Color,Urine Yellow; Glucose,Urine (UA) Negative (Negative); Ketones,Urine Negative (Negative); Leukocyte Esterase,Urine Trace (Negative); Mucus,Urine Many /hpf; Nitrite,Urine Negative (Negative); Protein,Urine 1+ (Negative); RBC,Urine 4 /hpf (0-5); Squamous Epithelial Cell,Urine 18 /hpf (0-4); Urobilinogen,Urine <2.0 mg/dL (<2.0); WBC,Urine 17 /hpf (0-5)
--- NOTE | 2020-09-15 15:20 | CT ---
EXAMINATION TYPE: CT abdomen pelvis w con DATE OF EXAM: 09/15/2020 COMPARISON: 01/25/2019 HISTORY: 29-year-old female flank pain with fever. TECHNIQUE: Contiguous axial scanning of the abdomen and pelvis following administration of 100 ml Iso amelia 300 IV contrast. Delayed images through the kidneys and coronal/sagittal reconstructions perform ed. CT DLP: 1353.7 mGycm Automated exposure control for dose reduction was used. FINDINGS: Heart normal size without pericardial effusion. Dependent groundglass in the visualized lung bases, p robably areas of atelectasis. Liver measures larger 22.1 cm possibly in part due to the presence of a Daniella's lobe. No focal liver lesion. No biliary ductal dilatation. Portal venous system is patent. Gallbladder, adrenal glands, right kidney, spleen, and pancreas appear within normal limits. There multiple patchy areas of hypoenhancement throughout the left kidney. No hydronephrosis. No dilated small bowel, free fluid, or free air. No mesenteric or retroperitoneal lymphadenopathy. Normal appendix. Mild overall stool burden. Mild circumferential bladder wall thickening. Uterus anteverted. 2.2 cm dominant follicle or function al cyst within the right ovary. Left ovary is visualized. Pelvic phleboliths. No abnormal fluid colle ction in the pelvis or pelvic lymphadenopathy. Bones: No osseous destructive process. IMPRESSION: 1. MULTIPLE PATCHY AREAS OF HYPOENHANCEMENT WITHIN THE LEFT KIDNEY BEST SEEN ON THE DELAYED KIDNEY IM AGES. CT FINDINGS COMPATIBLE WITH PYELONEPHRITIS. 2. ADDITIONAL BLADDER WALL THICKENING SUGGESTS CYSTITIS. 3. INCIDENTAL 2.2 CM DOMINANT FOLLICLE OR FUNCTIONAL CYST IN THE RIGHT OVARY.
[2020-09-15] MEDS ORDERED: AZITHROMYCIN 500 MG TAB PO STA (15:56)
[2020-09-15] MEDS ORDERED: HYDROmorphone 0.5 MG/0.5 ML SYRINGE IVP STA (17:06)
[2020-09-15 18:04] VITALS: BP 105/71; PULSE 78; TEMP 98
== END 2020-09-15 18:03 | disposition home or self-care (01) ==
LOC: EC 13:34
DX: N12 Tubulo-interstitial nephritis, not specified as acute or chronic (principal); D72.829 Elevated white blood cell count, unspecified; N39.0 Urinary tract infection, site not specified; F17.200 Nicotine dependence, unspecified, uncomplicated; Z98.51 Tubal ligation status
CPT/HCPCS: 36415; 80053; 83605; 83690; 85025; 81001; 81025; 87086; 74177; 99285; 96365; 96375 ×2; 96361 ×3; J2270; J0696; J1170; Q9967

== ENCOUNTER 2023-02-01 21:16 | Inpatient (IN) | payer MEDICAID, OTHER ==
[2023-02-01] MEDS ORDERED: LORazepam 1 MG TAB PO STA (21:34)
--- NOTE | 2023-02-01 21:38 | ED ---
General Adult HPI - General Stated complaint: Mental Health Time Seen by Provider: 02/01/23 21:22 Source: patient, police, RN notes reviewed, old records reviewed Mode of arrival: ambulatory Limitations: no limitations - History of Present Illness Initial comments: Patient is a 32-year-old female with past medical history remarkable for psychiatric illness, suicidal ideations, mood disorder who presents emergency Department complaining of suicidal ideations. Patient is brought in by police, and petition by police. They were notified by friends/family that the patient did send out threatening text messages saying she was going to electrocute herself by dropping a hair iron into a bathtub with her in it. Patient states she has attempted suicide in the past via overdose. Did not attempt overdose tonight. Denies any alcohol use. Denies any other drug use. Denies any chest pain, shortness of breath, abdominal pain, nausea, vomiting. Denies any homicidal ideations, attempts, plans. Denies any visual or auditory hallucinations. Patient was brought in by police for further evaluation. - Related Data Previous Rx's Medication Instructions Recorded FLUoxetine HCL [PROzac] 30 mg PO DAILY #30 cap 01/11/23 QUEtiapine [SEROquel] 50 mg PO HS #30 tab 01/11/23 Allergies Allergy/AdvReac Type Severity Reaction Status Date / Time No Known Allergies Allergy Verified 02/02/23 03:36 Review of Systems ROS Statement: Those systems with pertinent positive or pertinent negative responses have been documented in the HPI. Review of Systems: CONST: Denies fever EYES: Denies blurry vision ENT: Denies nasal congestion C/V: Denies Chest pain RESP: Denies shortness of breath GI: Denies abdominal pain : Denies dysuria SKIN: Denies rash. MSK: Denies joint pain. NEURO: Denies headache PSYCH: Denies homicidal ideations/plans/attempts. Denies visual or auditory hallucinations. She does endorse suicidal ideation, plan. Denies attempt. ROS Other: All systems not noted in ROS Statement are negative. Past Medical History Past Medical History: No Reported History History of Any Multi-Drug Resistant Organisms: C-DIFF Date of last positivie culture/infection: 2015 MDRO Source:: C-Diff Past Surgical History: Adenoidectomy, Section, Ear Surgery, Hernia Repair, Tonsillectomy, Tubal Ligation Additional Past Surgical History / Comment(s): tubes in ears, colonoscopy and EGD 2016, knee surgery Past Anesthesia/Blood Transfusion Reactions: No Reported Reaction Past Psychological History: Anxiety Smoking Status: Current every day smoker Past Alcohol Use History: None Reported Past Drug Use History: None Reported - Past Family History Mother History Unknown: Yes Family Medical History: Cancer General Exam - General Exam Comments Initial Comments: General: Appears anxious, but otherwise in no acute distress. She is actively crying. HEAD: Normal with no signs of head trauma. EYES: PERRLA, EOMI, conjunctiva normal, no discharge. Pupils are 3 mm equal bilaterally. ENT: Hearing grossly intact, normal oropharynx. RESPIRATORY: Clear breath sounds bilaterally. No wheezes, rales, or rhonchi. C/V: Regular rate and rhythm. S1 and S2 auscultated ABD: Abd is soft, nontender, nondistended EXT: Normal range of motion, no obvious deformity SKIN: No rashes or lesions observed on exposed skin. NEURO: Alert and oriented 4. Limitations: no limitations Course Vital Signs 02/01/23 02/02/23 21:17 01:48 Temperature 98.5 F 98.1 F Pulse Rate 129 H Pulse Rate [ 108 H Left Sitting] Respiratory 20 15 Rate Blood Pressure 136/80 Blood Pressure 119/69 [Left Arm Sitting] O2 Sat by Pulse 97 98 Oximetry Medical Decision Making - Medical Decision Making Was pt. sent in by a medical professional or institution (Dr. PA, SEPARATING MACHINE OPERATOR, urgent care, hospital, or long-term...) When possible be specific @ -No Did you speak to anyone other than the patient for history (EMS, parent, family, police, friend...)? What history was obtained from this source @ -I spoke with police who petitioned the patient. Petition reinforce that the patient was threatening suicide by electrocution in the bathtub with a hair iron. Did you review nursing and triage notes (agree or disagree)? Why? @ -I reviewed and agree with nursing and triage notes Were old charts reviewed (outside hosp., previous admission, EMS record, old EKG, old radiological studies, urgent care reports/EKG's, long-term records)? Report findings @ -Old charts reviewed including recent psychiatric evaluation from early January 2023. Differential Diagnosis (chest pain, altered mental status, abdominal pain women, abdominal pain men, vaginal bleeding, weakness, fever, dyspnea, syncope, headache, dizziness, GI bleed, back pain, seizure, CVA, palpatations, mental health, musculoskeletal)? @ -Differential Mental Health Depression, anxiety, bipolar, psychosis, schizophrenia, borderline personality, situational depression, adjustment disorder, behavioral disorder, brain tumor, malingering, substance abuse, encephalopathy, medication reaction, dementia, hypothyroidism, degenerative neurologic disorder, lupus.... This is not meant to be all-inclusive list EKG interpreted by me (3pts min.). @ -None done X-rays interpreted by me (1pt min.). @ -None done CT interpreted by me (1pt min.). @ -None done U/S interpreted by me (1pt. min.). @ -None done What testing was considered but not performed or refused? (CT, X-rays, U/S, labs)? Why? @ -None What meds were considered but not given or refused? Why? @ -None Did you discuss the management of the patient with other professionals (professionals i.e. , PA, SEPARATING MACHINE OPERATOR, lab, RT, psych nurse, licensed master social worker, diesel mechanic apprentice, teacher, chief medical officer, watch caser)? Give summary @ -Spoke with PATITO Mireles and updated her that the patient is medically cleared for evaluation by psychiatry. Was smoking cessation discussed for >3mins.? @ -No Was critical care preformed (if so, how long)? @ -Yes, 35 minutes. Were there social determinants of health that impacted care today? How? (Homelessness, low income, unemployed, alcoholism, drug addiction, transportation, low edu. Level, literacy, decrease access to med. care, intermediate, rehab)? @ -No Was there de-escalation of care discussed even if they declined (Discuss DNR or withdrawal of care, Hospice)? DNR status @ -No What co-morbidities impacted this encounter? (DM, HTN, Smoking, COPD, CAD, Cancer, CVA, ARF, Chemo, Hep., AIDS, mental health diagnosis, sleep apnea, morbid obesity)? @ -History of mood disorder, suicidal ideations. Was patient admitted / discharged? Hospital course, mention meds given and route, prescriptions, significant lab abnormalities, going to OR and other pertinent info. @ -Based on the patient's presentation and physical exam, do believe she requires psychiatric evaluation. She is placed in green scrubs. Severe was ordered. Suicide precautions ordered. BAT is 0. UDS" however pending. I do not believe that we require laboratory studies at this time. Vital signs are remarkable for tachycardia, however patient is actively crying and is upset. She will be given a small dose of oral Ativan. She was in agreement this plan. At this time patient is medically cleared for evaluation by psychiatry. Disposition is pending psychiatric evaluation. EPS Aline was notified. Patient was evaluated by EPS and will be admitted. Clinical certificate was completed by myself. Patient admitted in stable condition. Undiagnosed new problem with uncertain prognosis? @ -No Drug Therapy requiring intensive monitoring for toxicity (Heparin, Nitro, Insulin, Cardizem)? @ -No Were any procedures done? @ -No Diagnosis/symptom? @ -Encounter for psychiatric evaluation Acute, or Chronic, or Acute on Chronic? @ -Acute Uncomplicated (without systemic symptoms) or Complicated (systemic symptoms)? @ -Uncomplicated Side effects of treatment? @ -No Exacerbation, Progression, or Severe Exacerbation? @ -No Poses a threat to life or bodily function? How? (Chest pain, [place], [place], pneumonia, PE, COPD, DKA, ARF, appy, cholecystitis, CVA, Diverticulitis, Homicidal, Suicidal, threat to staff... and all critical care pts) @ -Poses threat to self as the patient is suicidal. Diagnosis/symptom? @ -Suicidal ideation, plan Acute, or Chronic, or Acute on Chronic? @ -Acute Uncomplicated (without systemic symptoms) or Complicated (systemic symptoms)? @ -Uncomplicated Side effects of treatment? @ -none Exacerbation, Progression, or Severe Exacerbation] @ -no Poses a threat to life or bodily function? @ -Poses threat to self as the patient is suicidal. Diagnosis/symptom? @ -Anxiety Acute, or Chronic, or Acute on Chronic? @ -Acute Uncomplicated (without systemic symptoms) or Complicated (systemic symptoms)? @ -Uncomplicated Side effects of treatment? @ -none Exacerbation, Progression, or Severe Exacerbation] @ -no Poses a threat to life or bodily function? @ -no - Lab Data Lab Results 02/01/23 02/01/23 02/01/23 Range/Units 21:38 21:39 21:39 Urine Color Yellow Urine Appearance Clear (Clear) Urine pH 6.0 (5.0-8.0) Ur Specific [place] 1.029 (1.001-1.035) Urine Protein Trace H (Negative) Urine Glucose (UA) Negative (Negative) Urine Ketones Trace H (Negative) Urine Blood Negative (Negative) Urine Nitrite Negative (Negative) Urine Bilirubin Negative (Negative) Urine Urobilinogen 2.0 (<2.0) mg/dL Ur Leukocyte Esterase Negative (Negative) Urine HCG, Qual (Not Detectd) Urine Opiates Screen Not Detected (NotDetected) Ur Oxycodone Screen Not Detected (NotDetected) Urine Methadone Screen Not Detected (NotDetected) Ur Propoxyphene Screen Not Detected (NotDetected) Ur Barbiturates Screen Not Detected (NotDetected) U Tricyclic Antidepress Not Detected (NotDetected) Ur Phencyclidine Scrn Not Detected (NotDetected) Ur Amphetamines Screen Detected H (NotDetected) U Methamphetamines Scrn Detected H (NotDetected) U Benzodiazepines Scrn Not Detected (NotDetected) Urine Cocaine Screen Not Detected (NotDetected) U Marijuana (THC) Screen Not Detected (NotDetected) Coronavirus (PCR) Not Detected (Not Detectd) 02/01/23 Range/Units 21:39 Urine Color Urine Appearance (Clear) Urine pH (5.0-8.0) Ur Specific [place] (1.001-1.035) Urine Protein (Negative) Urine Glucose (UA) (Negative) Urine Ketones (Negative) Urine Blood (Negative) Urine Nitrite (Negative) Urine Bilirubin (Negative) Urine Urobilinogen (<2.0) mg/dL Ur Leukocyte Esterase (Negative) Urine HCG, Qual Not Detected (Not Detectd) Urine Opiates Screen (NotDetected) Ur Oxycodone Screen (NotDetected) Urine Methadone Screen (NotDetected) Ur Propoxyphene Screen (NotDetected) Ur Barbiturates Screen (NotDetected) U Tricyclic Antidepress (NotDetected) Ur Phencyclidine Scrn (NotDetected) Ur Amphetamines Screen (NotDetected) U Methamphetamines Scrn (NotDetected) U Benzodiazepines Scrn (NotDetected) Urine Cocaine Screen (NotDetected) U Marijuana (THC) Screen (NotDetected) Coronavirus (PCR) (Not Detectd) Critical Care Time Critical Care Time: Yes Total Critical Care Time: 35 Critical Care Time: Upon my evaluation, this patient had a high probability of imminent or life- threatening deterioration due to psychiatric illness, suicidal ideation and plan which required my direct attention, intervention, and personal management. I have personally provided 35 minutes of critical care time exclusive of time spent on separately billable procedures. Time includes review of laboratory data, radiology results, discussion with consultants, and monitoring for potential decompensation. Interventions were performed as documented in my note. Disposition Clinical Impression: Acute anxiety, Suicidal ideation, Planning to commit suicide, Encounter for psychiatric assessment Disposition: ADMITTED IP TO THIS HOSP Condition: Stable Time of Disposition: 23:00
[2023-02-01 22:18] LABS: Appearance,Urine Clear (Clear); Bilirubin,Urine Negative (Negative); Blood,Urine Negative (Negative); Color,Urine Yellow; Glucose,Urine (UA) Negative (Negative); Ketones,Urine Trace (Negative); Leukocyte Esterase,Urine Negative (Negative); Nitrite,Urine Negative (Negative); Protein,Urine Trace (Negative); Specific Gravity,Urine 1.029 (1.001-1.035)
[2023-02-01 22:27] LABS: Amphetamine Screen,Urine Detected (NotDetected); Barbiturate Screen,Urine Not Detected (NotDetected); Benzodiazepines Screen,Urine Not Detected (NotDetected); Cocaine Screen,Urine Not Detected (NotDetected); Methadone Screen, Urine Not Detected (NotDetected); Opiate Screen,Urine Not Detected (NotDetected); Oxycodone Screen, Urine Not Detected (NotDetected); Phencyclidine Screen,Urine Not Detected (NotDetected); Tricyclic Antidepressant,Urine Not Detected (NotDetected); Urn Cannabinoid Scrn Not Detected (NotDetected)
[2023-02-02] MEDS ORDERED: IBUPROFEN 400 MG TAB PO STA (00:30)
[2023-02-02] MEDS ORDERED: NICOTINE 7MG/24HR PATCH TRANSDERM STA (00:42)
[2023-02-02] MEDS ORDERED: ACETAMINOPHEN TAB 325 MG TAB PO PRN (01:13)
[2023-02-02] MEDS ORDERED: MAG HYDROX/AL HYDROX/SIMETH 30 ML CUP PO PRN (01:13)
[2023-02-02] MEDS ORDERED: MAGNESIUM HYDROXIDE 2,400 MG/10 ML CUP PO PRN (01:13)
[2023-02-02] MEDS ORDERED: LORazepam 2 MG/ML INJ IM PRN (01:18)
[2023-02-02] MEDS ORDERED: HALOPERIDOL LACTATE 5 MG/ML 1 ML VIAL IM PRN (01:19)
[2023-02-02] MEDS: LORazepam 1 MG TAB PO PRN ×2 (02:25→14:36)
[2023-02-02] MEDS: NICOTINE 14MG/24HR PATCH TRANSDERM SCH (09:26)
--- NOTE | 2023-02-02 10:59 | P.HP ---
Psychiatric H&P - . H&P Date: 02/02/23 History & Physical: Allergies Allergy/AdvReac Type Severity Reaction Status Date / Time No Known Allergies Allergy Verified 02/02/23 03:36 Vital Signs Temp 98.1 F 02/02/23 01:48 Pulse 108 H 02/02/23 01:48 Resp 15 02/02/23 01:48 BP 119/69 02/02/23 01:48 Pulse Ox 98 02/02/23 01:48 FiO2 Intake & Output 02/01/23 02/02/23 02/02/23 18:59 06:59 18:59 Weight 80.824 kg Laboratory Last Values Urine Color Yellow 02/01/23 21:39 Urine Appearance Clear (Clear) 02/01/23 21:39 Urine pH 6.0 (5.0-8.0) 02/01/23 21:39 Ur Specific [place] 1.029 (1.001-1.035) 02/01/23 21:39 Urine Protein Trace (Negative) H 02/01/23 21:39 Urine Glucose (UA) Negative (Negative) 02/01/23 21:39 Urine Ketones Trace (Negative) H 02/01/23 21:39 Urine Blood Negative (Negative) 02/01/23 21:39 Urine Nitrite Negative (Negative) 02/01/23 21:39 Urine Bilirubin Negative (Negative) 02/01/23 21:39 Urine Urobilinogen 2.0 mg/dL (<2.0) 02/01/23 21:39 Ur Leukocyte Esterase Negative (Negative) 02/01/23 21:39 Urine HCG, Qual Not Detected (Not Detectd) 02/01/23 21:39 Urine Opiates Screen Not Detected (NotDetected) 02/01/23 21:38 Ur Oxycodone Screen Not Detected (NotDetected) 02/01/23 21:38 Urine Methadone Screen Not Detected (NotDetected) 02/01/23 21:38 Ur Propoxyphene Screen Not Detected (NotDetected) 02/01/23 21:38 Ur Barbiturates Screen Not Detected (NotDetected) 02/01/23 21:38 U Tricyclic Antidepress Not Detected (NotDetected) 02/01/23 21:38 Ur Phencyclidine Scrn Not Detected (NotDetected) 02/01/23 21:38 Ur Amphetamines Screen Detected (NotDetected) H 02/01/23 21:38 U Methamphetamines Scrn Detected (NotDetected) H 02/01/23 21:38 U Benzodiazepines Scrn Not Detected (NotDetected) 02/01/23 21:38 Urine Cocaine Screen Not Detected (NotDetected) 02/01/23 21:38 U Marijuana (THC) Screen Not Detected (NotDetected) 02/01/23 21:38 Coronavirus (PCR) Not Detected (Not Detectd) 02/01/23 21:39 02/02/23 10:53 Psychiatric evaluation Toma is a 32-year-old female who denies any significant past psychiatric illness or treatment except when she was a teenager Patient states that she was depressed and upset and decided to kill herself by throwing a hair or beauty salon manager in the bathtub She says that she was here because of her [place] and a friend who knocked on the door and Center at that time The ER report however use a different account Findings except from the assessment done in the ER: Patient is a 32-year-old female with past medical history remarkable for psychiatric illness, suicidal ideations, mood disorder who presents emergency Department complaining of suicidal ideations. Patient is brought in by police, and petition by police. They were notified by friends/family that the patient did send out threatening text messages saying she was going to electrocute herself by dropping a hair iron into a bathtub with her in it. Patient states she has attempted suicide in the past via overdose. Did not attempt overdose tonight. Denies any alcohol use. Denies any other drug use. Denies any chest pain, shortness of breath, abdominal pain, nausea, vomiting. Denies any homicidal ideations, attempts, plans. Denies any visual or auditory hallucinations. Patient was brought in by police for further evaluation. 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 She feels overwhelmed and depressed and suicidal She admits feeling helpless and hopeless Mental out on medication patient demanded Dexedrine She reports that most of the other medications make her too tired however she did agreed that she will take medications as prescribed Past history personal social history: Patient remains a reliable historian and gives flippant answers Patient is wanting to sleep and at this time is not too involved in wanting to give specific details Patient reports that she currently lives with her boyfriend and her son aged 2 years She admits that she is having financial difficulties with her car breaking down and 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 Patient has signed adult voluntary form and medication consent and is placed in patient's chart. -Medications : Patient has agreed to be started on Wellbutrin XL 150 mg by mouth every morning to start within titrated to response Discussed effects and side effects which she appears to Mr. Global -NRT - not needed as patient does not smoke-SW on board for discharge planning. Encourage patient to participate in groups to work on coping skills. will re- evaluate need for 1:1 sitter today with team. Song Boswell M.D.
[2023-02-02 11:24] LABS: Basophils # (A) 0.1 k/uL (0-0.2); Basophils % (A) 1 %; Eosinophils # (A) 0.2 k/uL (0-0.7); Eosinophils % (A) 3 %; HCT 40.8 % (34.0-46.0); HGB 13.4 gm/dL (11.4-16.0); Lymphocytes # (A) 2.4 k/uL (1.0-4.8); Lymphocytes % (A) 32 %; MCH 31.2 pg (25.0-35.0); MCV 94.7 fL (80.0-100.0); Mean Platelet Volume 7.3; Monocytes # (A) 0.4 k/uL (0-1.0); Monocytes % (A) 6 %; Neutrophils # (A) 4.1 k/uL (1.3-7.7); Neutrophils % (A) 56 %; Platelet Count 332 k/uL (150-450); RDW 13.2 % (11.5-15.5); WBC 7.4 k/uL (3.8-10.6)
[2023-02-02 11:44] LABS: ALT 25 U/L (4-34); AST 21 U/L (14-36); African American GFR (CKD) >90 (>60 ml/min/1.73 sqM); Albumin 3.4 g/dL (3.5-5.0); Alkaline Phosphatase 55 U/L (38-126); Anion Gap 9 mmol/L; Bilirubin, Delta 0.3 mg/dL (0.0-0.2); Blood Urea Nitrogen 14 mg/dL (7-17); Calcium 8.6 mg/dL (8.4-10.2); Carbon Dioxide 21 mmol/L (22-30); Chloride 110 mmol/L (98-107); Glucose 87 mg/dL (74-99); Non-African American GFR(CKD) >90 (>60 ml/min/1.73 sqM); Potassium 4.5 mmol/L (3.5-5.1); Sodium 140 mmol/L (137-145); Total Bilirubin 0.3 mg/dL (0.2-1.3); Total Protein 6.1 g/dL (6.3-8.2)
[2023-02-02] MEDS: haloperidoL 5 MG TAB PO PRN (14:36)
--- NOTE | 2023-02-02 14:37 | P.MDCNMH ---
History of Present Illness H&P Date: 02/02/23 Chief Complaint: medical evaluation 32-year-old woman with a medical history presented for evaluation of suicidal ideation and major depression. Medicine was consulted by psychiatry service for medical evaluation. Patient tells me that her only complaint is chronic pain in her knee and her back. She says that she started her ligaments in her knee before and has chronic back pain as well. She does not do anything at home for this pain, does not take Tylenol because "it caused her child to have autism". She otherwise denies any other complaints including fevers, chills, nausea, vomiting, chest pain, palpitations, syncope, presyncope, cough, dyspnea, constipation, diarrhea, dysuria, dyschezia, abdominal pain, numbness/weakness of extremities. Upon my evaluation, patient is afebrile, 119/69, heart rate 108, 98% on room air. CBC is unremarkable. Chemistries show bicarb of 21, otherwise unremarkable. Liver function tests are unremarkable. TSH is 0.365. UA shows trace protein, trace ketones, otherwise unremarkable. Urine tox screen is positive for methamphetamines as well as amphetamines. Covid was negative. All Systems reviewed and pertinent positives and negatives noted in HPI, all other symptoms are negative Gen: in no apparent distress, resting comfortably in bed Eyes: PERRL, no scleral injection or icterus HENT: normocephalic, atraumatic, good hearing acuity, moist mucous membranes Neck: no tracheal deviation, full range of motion Resp: good air exchange, breathing comfortably with no accessory muscle use, no tactile fremitus CVS: good distal perfusion x 4, no pitting edema GI: soft, NTTP, ND, no hepatosplenomegaly : no suprapubic tenderness, no CVAT, ward catheter not present MSK: no clubbing, no cyanosis, no noted contractures of extremities Skin: no noted rashes, petechiae; temperature of skin is appropriate Neuro: moving all extremities without signs of weakness, CN II-XII intact Psych: cooperative, labile mood, insight and judgment impaired Labs and imaging as above Assessment: Back pain Knee pain Major depression Suicidal ideation Polysubstance abuse Plan: Vital signs reviewed and noted in HPI Lab work reviewed and noted in HPI Lidocaine patch 5% transdermal 2 to be applied to the back and to the left knee Tylenol 650 mg by mouth every 6 hours when necessary for pain Ibuprofen 400 mg every 6 hours when necessary for pain Methamphetamine cessation counseling advised Patient is full code Past Medical History Past Medical History: No Reported History History of Any Multi-Drug Resistant Organisms: C-DIFF Date of last positivie culture/infection: 2015 MDRO Source:: C-Diff Past Surgical History: Adenoidectomy, Section, Ear Surgery, Hernia Repair, Tonsillectomy, Tubal Ligation Additional Past Surgical History / Comment(s): tubes in ears, colonoscopy and EGD 2016, knee surgery Past Anesthesia/Blood Transfusion Reactions: No Reported Reaction Past Psychological History: Anxiety Smoking Status: Current every day smoker Past Alcohol Use History: None Reported Past Drug Use History: None Reported - Past Family History Mother History Unknown: Yes Family Medical History: Cancer Medications and Allergies Home Medications Medication Instructions Recorded Confirmed Type FLUoxetine HCL [PROzac] 30 mg PO DAILY #30 cap 01/11/23 02/02/23 Rx QUEtiapine [SEROquel] 50 mg PO HS #30 tab 01/11/23 02/02/23 Rx Allergies Allergy/AdvReac Type Severity Reaction Status Date / Time No Known Allergies Allergy Verified 02/02/23 03:36 Physical Exam Osteopathic Statement: *. No significant issues noted on an osteopathic structural exam other than those noted in the History and Physical/Consult. Vitals: Vital Signs Temp Pulse Pulse Resp BP BP Pulse Ox 02/02/23 01:48 98.1 F 108 H 15 119/69 98 02/01/23 21:17 98.5 F 129 H 20 136/80 97 Intake and Output 02/01/23 02/02/23 02/02/23 22:59 06:59 14:59 Other: Weight 81.193 kg 80.824 kg Cranial Nerve Examination - Cranial Nerves Cranial Nerve II- Optic: Intact Cranial Nerve III- Oculomotor: Intact Cranial Nerve IV- Trochlear: Intact Cranial Nerve V- Trigeminal: Intact Cranial Nerve - Abducens: Intact Cranial Nerve VII- Facial: Intact Cranial Nerve VIII- Auditory: Intact Cranial Nerve IX- Glossopharyngeal: Intact Cranial Nerve X- Vagus: Intact Cranial Nerve XI- Accessory: Intact Cranial Nerve XII- Hypoglossal: Intact Results CBC & Chem 7: 02/02/23 10:49 02/02/23 10:49 Labs: Abnormal Lab Results - Last 24 Hours (Table) 02/01/23 02/01/23 02/02/23 Range/Units 21:38 21:39 10:49 Chloride 110 H (98-107) mmol/L Carbon Dioxide 21 L (22-30) mmol/L Delta Bilirubin 0.3 H (0.0-0.2) mg/dL Total Protein 6.1 L (6.3-8.2) g/dL Albumin 3.4 L (3.5-5.0) g/dL TSH 0.365 L (0.465-4.680) mIU/L Urine Protein Trace H (Negative) Urine Ketones Trace H (Negative) Ur Amphetamines Screen Detected H (NotDetected) U Methamphetamines Scrn Detected H (NotDetected)
[2023-02-02 17:44] LABS: Chol/HDL Ratio 3.96 Ratio; LDL Cholesterol,Calculated 123.3 mg/dL (0.0-131.0); VLDL Calculation 11.22 mg/dL (5.00-40.00)
[2023-02-02] MEDS: LIDOCAINE 5% PATCH TOPICAL SCH ×2 (18:14→18:15)
--- NOTE | 2023-02-03 09:31 | P.PN ---
Progress Note - Text Progress Note Date: 02/03/23 Subjective/objective data: The patient was laying comfortably in bed and was trying to sleep Patient showed little motivation to interact adequately and gave flippant answers Patient states that she is okay with the Wellbutrin but did not offer any other information She again turned back and went back to sleep Patient remains a motivated for any further interaction Mental Status Exam: General Appearance: Patient appears to be stated age is alert, patient reports that she is sleepy and exhibits poor motivation for interaction Behavior: Patient is laying down without any agitated behavior. Poor eye contact. Speech: Patient's speech is spontaneous. But sparse Mood/Affect: Mood flat. Suicidality/Homicidality: Denies SI / HI Perceptions: Denies AH / VH Though content/process: Linear and logical. Memory and concentration: Difficult to assess Judgment and insight: Poor IMPRESSIONS: Major depressive disorder, unspecified Interpersonal family problems/relationship problems Rule out personality disorder PLAN: -Patient is admitted under voluntary status to [facility]HU for stabilization of psychiatric symptoms and safety. Patient has signed adult voluntary form and medication consent and is placed in patient's chart. -Medications : Patient has agreed to be started on Wellbutrin XL 150 mg by mouth every morning to start within titrated to response Discussed effects and side effects which she appears to Mr. Global -NRT - not needed as patient does not smoke-SW on board for discharge planning. Encourage patient to participate in groups to work on coping skills. Song Boswell M.D.
[2023-02-03] MEDS: NICOTINE 14MG/24HR PATCH TRANSDERM SCH ×2 (10:17→18:01)
[2023-02-03] MEDS: LIDOCAINE 5% PATCH TOPICAL SCH ×2 (10:18→10:19)
[2023-02-03] MEDS: buPROPion XL 150 MG TAB.ER.24H PO SCH (10:18)
[2023-02-03] MEDS: LORazepam 1 MG TAB PO PRN (18:09)
[2023-02-04] MEDS: LORazepam 1 MG TAB PO PRN (00:04)
[2023-02-04] MEDS: IBUPROFEN 400 MG TAB PO PRN (00:04)
[2023-02-04] MEDS: haloperidoL 5 MG TAB PO PRN (00:04)
[2023-02-04] MEDS: buPROPion XL 150 MG TAB.ER.24H PO SCH (09:26)
[2023-02-04] MEDS: NICOTINE 14MG/24HR PATCH TRANSDERM SCH (09:26)
[2023-02-04] MEDS: LIDOCAINE 5% PATCH TOPICAL SCH ×2 (09:47)
--- NOTE | 2023-02-04 14:09 | P.PN ---
Progress Note - Text Progress Note Date: 02/04/23 Subjective/objective data: The patient was laying comfortably in bed today and was agreeable to seek to write in the office. Patient was tearful and appeared to be irritable during conversation. She was very focused on discharge and minimizing her need for being in the hospital. She states that she wants to go home to her kids. She claims that she regrets coming to the hospital. She appeared to be fairly impulsive and demanding during the interaction. She was also argumentative with display card writer and hostile at times. She is complaining that she is still feeling depressed and is not being helped. We spoke about other medication options. She claimed that she wants to sign the AMA form. She was minimizing her sleep issues, claims she has a fair appetite. She is denying any current suicidal or homicidal ideations intent or plan. Denying any auditory or visual hallucinations. Patient has been taking her medications. Mental Status Exam: General Appearance: Patient appears to be overweight, stated age is alert, patient appears to be tearful and irritable. Argumentative. Behavior: Patient is sitting in the chair without any agitated behavior. Poor eye contact. Irritable. Demanding. Speech: Patient's speech is spontaneous. Loud at times. Mood/Affect: Claims that her mood is depressed. Affect is labile. Suicidality/Homicidality: Denies SI / HI Perceptions: Denies AH / VH Though content/process: Linear, focused on discharge. No delusions or paranoia. Memory and concentration: Alert and oriented 3. Judgment and insight: Poor and impulsive IMPRESSIONS: Major depressive disorder, unspecified Interpersonal family problems/relationship problems Rule out personality disorder PLAN: -Patient is admitted under voluntary status to [facility]HU for stabilization of psychiatric symptoms and safety. Patient has signed adult voluntary form and medication consent and is placed in patient's chart. -Medications : continue wellbutrin XL 150 mg by mouth every morning for mood. added zoloft 50 mg daily for mood/anxiety. trazodone 50 mg qhs prn for sleep haldol and ativan prn for agitaiton/anxiety -NRT - not needed as patient does not smoke -SW on board for discharge planning. -Encourage patient to participate in groups to work on coping skills.
[2023-02-04] MEDS: SERTRALINE 50 MG TAB PO SCH (16:52)
[2023-02-05] MEDS: SERTRALINE 50 MG TAB PO SCH (09:25)
[2023-02-05] MEDS: buPROPion XL 150 MG TAB.ER.24H PO SCH (09:25)
[2023-02-05] MEDS: NICOTINE 14MG/24HR PATCH TRANSDERM SCH (09:26)
[2023-02-05] MEDS: LIDOCAINE 5% PATCH TOPICAL SCH ×2 (09:30→09:31)
--- NOTE | 2023-02-05 10:41 | P.PN ---
Progress Note - Text Progress Note Date: 02/05/23 Subjective/objective data: The patient was laying comfortably in bed today and was agreeable to seek to typewriter ribbon winder today. Patient was fairly superficial and was somewhat irritable today with typewriter ribbon winder. She appears to be less tearful however and was able to answer most questions. She continues to be focused on discharge and wanting to see her children. She minimized the situation yesterday when she was "banging on the window" and required prn medications due to agitation/aggression. Patient con tinues to be fairly concrete during conversation. She states that she is doing "fine now" and had a constricted affect. Claims that she slept fairly last night. claims she has a fair appetite. She is denying any current suicidal or homicidal ideations intent or plan. Denying any auditory or visual hallucinations. Patient refused her Zoloft yesterday however token this morning. Patient was fairly evasive when speaking about interacting with others and going to groups and states that she possibly might do that today. Mental Status Exam: General Appearance: Patient appears to be overweight, stated age is alert, patient appears to be more constricted today. Less Argumentative. Behavior: Patient is sitting in the chair without any agitated behavior. Poor eye contact. Irritable. Demanding. Speech: Patient's speech is spontaneous. [place] Mood/Affect: Claims that her mood is "fine now". Affect is constricted. Suicidality/Homicidality: Denies SI / HI Perceptions: Denies AH / VH Though content/process: Linear, focused on discharge. No delusions or paranoia. Memory and concentration: Alert and oriented 3. Judgment and insight: Poor/superficial. IMPRESSIONS: Major depressive disorder, unspecified Interpersonal family problems/relationship problems Rule out personality disorder PLAN: -Patient is admitted under voluntary status to MHU for stabilization of psychiatric symptoms and safety. Patient has signed adult voluntary form and medication consent and is placed in patient's chart. -Medications : continue wellbutrin XL 150 mg by mouth every morning for mood. zoloft 50 mg daily for mood/anxiety. trazodone 50 mg qhs prn for sleep haldol and ativan prn for agitaiton/anxiety -NRT - not needed as patient does not smoke -SW on board for discharge planning. -Encourage patient to participate in groups to work on coping skills. Likely discharge in 2-3 days if patient continues to improve.
[2023-02-05] MEDS: LORazepam 1 MG TAB PO PRN (19:33)
[2023-02-06] MEDS ORDERED: SERTRALINE 50 MG TAB PO STA (11:52)
[2023-02-06] MEDS: NICOTINE 14MG/24HR PATCH TRANSDERM SCH (12:09)
[2023-02-06] MEDS: LIDOCAINE 5% PATCH TOPICAL SCH ×2 (12:09)
[2023-02-06] MEDS: buPROPion XL 150 MG TAB.ER.24H PO SCH (12:17)
[2023-02-06] MEDS: SERTRALINE 50 MG TAB PO SCH (12:17)
--- NOTE | 2023-02-06 12:50 | P.PN ---
Progress Note - Text Progress Note Date: 02/06/23 Subjective/objective data: The patient was taking part in group today and was agreeable to seek to auto service writer today in the office. Patient was fairly superficial again with auto service writer today and states that she is feeling "happy" and was smiling at auto service writer. She continues to be fairly minimal when speaking about her symptoms and was more focused on discharge today. She asked several times to go home. She claims that she is sleeping fairly at nighttime. Continues to have impulse control issues and was negotiating with auto service writer by discharge date. She states that she is eating fairly. She went to one group this morning. One auto service writer explained that patient will not be going home today she began crying and ripped her mask in half and threw it in the garbage. She walked up to the door and told auto service writer "I don't want to go to your stupid groups and take your fuckin medications". She is denying any current suicidal or homicidal ideations intent or plan. Denying any auditory or visual hallucinations. Mental Status Exam: General Appearance: Patient appears to be overweight, colored hair, stated age is alert, patient appears to be more superficially cooperative. argumentative and demanding. Behavior: Patient is sitting in the chair, improving eye contact. Irritable. Demanding. Speech: Patient's speech is spontaneous. [place] Mood/Affect: Claims that her mood is "good". Affect is constricted and innappropriate. Suicidality/Homicidality: Denies SI / HI Perceptions: Denies AH / VH Though content/process: Linear, focused on discharge. No delusions or paranoia. minimizing need for hospitalization Memory and concentration: Alert and oriented 3. Judgment and insight: Poor/superficial IMPRESSIONS: Major depressive disorder, unspecified Interpersonal family problems/relationship problems Rule out personality disorder PLAN: -Patient is admitted under voluntary status to MHU for stabilization of psychiatric symptoms and safety. Patient has signed adult voluntary form and medication consent and is placed in patient's chart. -Medications : increase zoloft 100 mg daily for mood/anxiety starting tomorrow. trazodone 50 mg qhs prn for sleep. start lamictal 25 mg bid for mood stabilization. -vistaril, haldol and ativan prn for agitation/anxiety -NRT - not needed as patient does not smoke -SW on board for discharge planning. -Encourage patient to participate in groups to work on coping skills. possible discharge in 2-3 days if patient improves psychiatrically.
[2023-02-06] MEDS: hydrOXYzine pamoate 25 MG CAP PO PRN ×3 (13:51→21:30)
[2023-02-06] MEDS: lamoTRIgine 25 MG TAB PO SCH (20:32)
[2023-02-06] MEDS: traZODone HCL 50 MG TAB PO PRN (22:24)
[2023-02-07 07:01] VITALS: RESP 16
[2023-02-07] MEDS: NICOTINE 14MG/24HR PATCH TRANSDERM SCH (08:09)
[2023-02-07] MEDS: LIDOCAINE 5% PATCH TOPICAL SCH ×2 (08:10)
[2023-02-07] MEDS: lamoTRIgine 25 MG TAB PO SCH ×3 (08:10→20:44)
[2023-02-07] MEDS: SERTRALINE 100 MG TAB PO SCH (08:10)
--- NOTE | 2023-02-07 11:19 | P.PN ---
Progress Note - Text Progress Note Date: 02/07/23 Subjective/objective data: The patient was laying in bed today and was awoken by freelance copywriter. She was agreeable to speak to him. She continues to be mildly superficial again today. She was not tearful and appears to be less impulsive and less irritable today. She was fairly superficial about going to groups however states that she will try to go to some groups today. She claims that she is taking her medications and states that it is helping her mood and anxiety. She claims that she is still ready to go home and was fairly focused on this. She is not reporting any rashes and freelance copywriter spoke with her about side effects of medications. She claims that she did not sleep well last night had to take the trazodone. States that her appetite is fair. She is denying any current suicidal or homicidal ideations intent or plan. Denying any auditory or visual hallucinations. Mental Status Exam: General Appearance: Patient appears to be overweight, colored hair, stated age is alert, patient appears to be more superficially cooperative. less argumentative today Behavior: Patient is laying in bed, improving eye contact. Less Irritable. Speech: Patient's speech is spontaneous. [place] Mood/Affect: Claims that her mood is "alright". Affect is constricted and innappropriate. Suicidality/Homicidality: Denies SI / HI Perceptions: Denies AH / VH Though content/process: Linear, No delusions or paranoia. minimizing need for hospitalization, focused on discharge. Memory and concentration: Alert and oriented 3. Judgment and insight: Poor/superficial, improving mildly IMPRESSIONS: Major depressive disorder, unspecified Interpersonal family problems/relationship problems Rule out personality disorder PLAN: -Patient is admitted under voluntary status to [facility]HU for stabilization of psychiatric symptoms and safety. Patient has signed adult voluntary form and medication consent and is placed in patient's chart. -Medications : zoloft 100 mg daily for mood/anxiety starting tomorrow. trazodone 50 mg qhs prn for sleep. increase lamictal 25 mg tid for mood stabilization. -vistaril, haldol and ativan prn for agitation/anxiety -NRT - not needed as patient does not smoke -SW on board for discharge planning. -Encourage patient to participate in groups to work on coping skills. possible discharge in 2-3 days if patient improves psychiatrically.
[2023-02-07] MEDS: hydrOXYzine pamoate 25 MG CAP PO PRN ×2 (14:44→21:35)
[2023-02-07] MEDS: traZODone HCL 50 MG TAB PO PRN (20:44)
[2023-02-07] MEDS: IBUPROFEN 400 MG TAB PO PRN (22:22)
[2023-02-08 06:44] VITALS: BP 99/55; PULSE 51; TEMP 98.3
[2023-02-08] MEDS: NICOTINE 14MG/24HR PATCH TRANSDERM SCH (08:21)
[2023-02-08] MEDS: LIDOCAINE 5% PATCH TOPICAL SCH ×2 (08:22→08:23)
[2023-02-08] MEDS: SERTRALINE 100 MG TAB PO SCH (08:24)
[2023-02-08] MEDS: lamoTRIgine 25 MG TAB PO SCH (08:24)
[2023-02-08] MEDS: IBUPROFEN 400 MG TAB PO PRN (11:31)
--- NOTE | 2023-02-08 11:43 | P.DS ---
Providers Date of admission: 02/02/23 01:06 Expected date of discharge: 02/08/23 Attending physician: Luis Wang MD Consults: 02/02/23 01:13 Consult Physician Routine Consulting Provider: Robb Escalante Consult Reason/Comments: For H & P for Medical Follow Up Do you want consulting provider notified?: Yes Primary care physician: Stated None - Discharge Diagnosis(es) (1) Major depressive disorder Current Visit: Yes Status: Acute Priority: High (2) Interpersonal problem Current Visit: Yes Status: Acute Priority: Medium (3) Nicotine dependence Current Visit: Yes Status: Acute Priority: Low Hospital Course: Admission HPI: Admission note was completed by Dr Alonzo "Toma is a 32-year-old female who denies any significant past psychiatric illness or treatment except when she was a teenager Patient states that she was depressed and upset and decided to kill herself by throwing a executive chairman in the bathtub. She says that she was here because of her Bebe and a friend who knocked on the door and Center at that time. The ER report however use a different account Findings except from the assessment done in the ER: Patient is a 32-year-old female with past medical history remarkable for psychiatric illness, suicidal ideations, mood disorder who presents emergency Department complaining of suicidal ideations. Patient is brought in by police, and petition by police. They were notified by friends/family that the patient did send out threatening text messages saying she was going to electrocute herself by dropping a hair iron into a bathtub with her in it. Patient states she has attempted suicide in the past via overdose. Did not attempt overdose to night. Denies any alcohol use. Denies any other drug use. Denies any chest pain, shortness of breath, abdominal pain, nausea, vomiting. Denies any homicidal ideations, attempts, plans. Denies any visual or auditory hallucinations. Patient was brought in by police for further evaluation. 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 She feels overwhelmed and depressed and suicidal She admits feeling helpless and hopeless Mental out on medication patient demanded Dexedrine She reports that most of the other medications make her too tired however she did agreed that she will take medications as prescribed " Hospital course: Upon admission to the unit patient was directable and agreeable to commence treatment and signed adult voluntary form . Patient was initially depressed, anxious tearful agitated and kept to herself however there is treatment and medications, she eventually got along well with other patients on the unit and followed unit protocol. Patient was compliant with the medications and denied any side effects throughout hospital course. Patient was started on Zoloft and increased her dose of 100 mg daily for mood/anxiety, Lamictal increased to a dose of 50 mg twice a day for mood stabilization/depression, trazodone when necessary for sleep and Vistaril when necessary for anxiety. Patient spoke of her stressors and engaged in therapy both group and individual. Patient was also seen by medical team for history and physical exam. Throughout the course of the hospitalization patient gradually improved with regards to mood, anxiety, suicidal thoughts, sleep and returned back to their baseline level of functioning. On the day of discharge patient denied any suicidal or homicidal ideations intent or plan denied any auditory or visual hallucinations. Patient endorsed wanting to live for her kids and future. The patient denied any access to guns or weapons. Patient denied any paranoia and did not endorse any delusions. Patient does not have a significant history of substance abuse and was counseled on abstaining from all substances including alcohol and marijuana. Patient was also counseled on the medications and need for regular compliance and was encouraged to follow-up with their outpatient appointment for mental health and also for primary care. Prior to discharge a family meeting will be arranged by web content & social media manager to answer any questions and ensure safety upon discharge. patient ensured that there are no guns or weapons in the house. Mental status exam: General Appearance: Patient appears to be mildly overweight, stated age is alert, pleasant, and cooperative. Patient is in no acute distress and has improved hygiene and grooming Behavior: Patient is calmly seated without any agitated behavior. Speech: Patient's speech is fluent and nonpressured. Mood/Affect: Patient reports their mood is "better", affect is congruent and euthymic. Suicidality/Homicidality: Patient denies having any suicidal or homicidal ideation intent or plan. Perceptions: Patient denies any auditory or visual hallucinations. Though content/process: There is no evidence of any delusional thought content and thought process is linear and goal-directed. more future oriented Memory and concentration: AOX3, grossly intact for the purposes of this session. Can spell "WORLD" backwards correctly. Judgment and insight: improved with guarded prognosis Impression: Major depressive disorder Interpersonal problems Nicotine dependence Plan: -Continue with discharge today as patient has improved and stabilized psychiatrically and is not currently an imminent threat to herself and/or others. Patient will remain at chronically elevated risk for harm to self and/or others due to her impulsivity. -Continue medications: Zoloft 100 mg daily for mood/anxiety, Lamictal 50 mg twice a day for mood stabilization/depression trazodone 50 mg daily at bedtime when necessary for sleep, Vistaril daily when necessary for anxiety. Patient was warned about the possible side effect of a rash from Lamictal and to seek urgent medical tension and stop the medication if this does occur. She verbally understood and agreed. -Patient was counseled on the need for medication compliance and appropriate follow-up at mental health and also primary care for medical issues. Patient verbalized understanding and agreed. -Social work to help coordinate patient's discharge today. Social work also to arrange for patients follow up appointments with [facility] for psychiatric care along with follow up with primary care provider. -Patient counseled on abstaining from recreational drugs and marijuana and alcohol. Was informed/educated on the adverse effects on their physical and mental health. Patient verbally agreed and understood. -Patient was instructed to return to the hospital or seek immediate medical care if their psychiatric or medical symptoms do worsen or reoccur. Allergies Allergy/AdvReac Type Severity Reaction Status Date / Time No Known Allergies Allergy Verified 02/02/23 03:36 Laboratory Results WBC 7.4 k/uL (3.8-10.6) 02/02/23 10:49 RBC 4.30 m/uL (3.80-5.40) 02/02/23 10:49 Hgb 13.4 gm/dL (11.4-16.0) 02/02/23 10:49 Hct 40.8 % (34.0-46.0) 02/02/23 10:49 MCV 94.7 fL (80.0-100.0) 02/02/23 10:49 MCH 31.2 pg (25.0-35.0) 02/02/23 10:49 MCHC 33.0 g/dL (31.0-37.0) 02/02/23 10:49 RDW 13.2 % (11.5-15.5) 02/02/23 10:49 Plt Count 332 k/uL (150-450) 02/02/23 10:49 MPV 7.3 02/02/23 10:49 Neutrophils % 56 % 02/02/23 10:49 Lymphocytes % 32 % 02/02/23 10:49 Monocytes % 6 % 02/02/23 10:49 Eosinophils % 3 % 02/02/23 10:49 Basophils % 1 % 02/02/23 10:49 Neutrophils # 4.1 k/uL (1.3-7.7) 02/02/23 10:49 Lymphocytes # 2.4 k/uL (1.0-4.8) 02/02/23 10:49 Monocytes # 0.4 k/uL (0-1.0) 02/02/23 10:49 Eosinophils # 0.2 k/uL (0-0.7) 02/02/23 10:49 Basophils # 0.1 k/uL (0-0.2) 02/02/23 10:49 Sodium 140 mmol/L (137-145) 02/02/23 10:49 Potassium 4.5 mmol/L (3.5-5.1) 02/02/23 10:49 Chloride 110 mmol/L (98-107) H 02/02/23 10:49 Carbon Dioxide 21 mmol/L (22-30) L 02/02/23 10:49 Anion Gap 9 mmol/L 02/02/23 10:49 BUN 14 mg/dL (7-17) 02/02/23 10:49 Creatinine 0.57 mg/dL (0.52-1.04) 02/02/23 10:49 Est GFR (CKD-EPI)AfAm >90 (>60 ml/min/1.73 sqM) 02/02/23 10:49 Est GFR (CKD-EPI)NonAf >90 (>60 ml/min/1.73 sqM) 02/02/23 10:49 Glucose 87 mg/dL (74-99) 02/02/23 10:[address] Glu mg/dL 101 02/02/23 10:49 Hemoglobin A1c 5.2 % (0.0-6.0) 02/02/23 10:49 Calcium 8.6 mg/dL (8.4-10.2) 02/02/23 10:49 Total Bilirubin 0.3 mg/dL (0.2-1.3) 02/02/23 10:49 Conjugated Bilirubin 0.0 mg/dL (0.0-0.3) 02/02/23 10:49 Unconjugated Bilirubin 0.0 mg/dL (0.0-1.1) 02/02/23 10:49 Delta Bilirubin 0.3 mg/dL (0.0-0.2) H 02/02/23 10:49 AST 21 U/L (14-36) 02/02/23 10:49 ALT 25 U/L (4-34) 02/02/23 10:49 Alkaline Phosphatase 55 U/L (38-126) 02/02/23 10:49 Total Protein 6.1 g/dL (6.3-8.2) L 02/02/23 10:49 Albumin 3.4 g/dL (3.5-5.0) L 02/02/23 10:49 Triglycerides 56.10 mg/dL (0.00-149.00) 02/02/23 10:49 Cholesterol 180.00 mg/dL (0.00-200.00) 02/02/23 10:49 LDL Cholesterol, Calc 123.3 mg/dL (0.0-131.0) 02/02/23 10:49 VLDL Cholesterol, Calc 11.22 mg/dL (5.00-40.00) 02/02/23 10:49 HDL Cholesterol 45.50 mg/dL (40.00-60.00) 02/02/23 10:49 Cholesterol/HDL Ratio 3.96 Ratio 02/02/23 10:49 TSH 0.365 mIU/L (0.465-4.680) L 02/02/23 10:49 Urine Color Yellow 02/01/23 21:39 Urine Appearance Clear (Clear) 02/01/23 21:39 Urine pH 6.0 (5.0-8.0) 02/01/23 21:39 Ur Specific [place] 1.029 (1.001-1.035) 02/01/23 21:39 Urine Protein Trace (Negative) H 02/01/23 21:39 Urine Glucose (UA) Negative (Negative) 02/01/23 21:39 Urine Ketones Trace (Negative) H 02/01/23 21:39 Urine Blood Negative (Negative) 02/01/23 21:39 Urine Nitrite Negative (Negative) 02/01/23 21:39 Urine Bilirubin Negative (Negative) 02/01/23 21:39 Urine Urobilinogen 2.0 mg/dL (<2.0) 02/01/23 21:39 Ur Leukocyte Esterase Negative (Negative) 02/01/23 21:39 Urine HCG, Qual Not Detected (Not Detectd) 02/01/23 21:39 Urine Opiates Screen Not Detected (NotDetected) 02/01/23 21:38 Ur Oxycodone Screen Not Detected (NotDetected) 02/01/23 21:38 Urine Methadone Screen Not Detected (NotDetected) 02/01/23 21:38 Ur Propoxyphene Screen Not Detected (NotDetected) 02/01/23 21:38 Ur Barbiturates Screen Not Detected (NotDetected) 02/01/23 21:38 U Tricyclic Antidepress Not Detected (NotDetected) 02/01/23 21:38 Ur Phencyclidine Scrn Not Detected (NotDetected) 02/01/23 21:38 Ur Amphetamines Screen Detected (NotDetected) H 02/01/23 21:38 U Methamphetamines Scrn Detected (NotDetected) H 02/01/23 21:38 U Benzodiazepines Scrn Not Detected (NotDetected) 02/01/23 21:38 Urine Cocaine Screen Not Detected (NotDetected) 02/01/23 21:38 U Marijuana (THC) Screen Not Detected (NotDetected) 02/01/23 21:38 Coronavirus (PCR) Not Detected (Not Detectd) 02/01/23 21:39 Vital Signs Temp 98.3 F 02/08/23 06:43 Pulse 51 L 02/08/23 06:43 Resp 16 02/08/23 06:43 BP 99/55 02/08/23 06:43 Pulse Ox 97 02/08/23 06:43 FiO2 Patient Condition at Discharge: Stable Plan - Discharge Summary Discharge Rx Participant: Yes New Discharge Prescriptions: New traZODone HCL [Desyrel] 50 mg PO HS PRN 30 Days #30 tab PRN Reason: Insomnia Nicotine 14Mg/24Hr Patch [Habitrol] 1 patch TRANSDERM DAILY 14 Days #14 patch lamoTRIgine [LaMICtal] 50 mg PO BID 30 Days #120 tab Acetaminophen Tab [Tylenol] 650 mg PO Q4HR PRN tab PRN Reason: Pain/Discomfort Sertraline [Zoloft] 100 mg PO DAILY 30 Days #30 tab Lidocaine 5% Patch [Lidoderm 5% Patch] 1 patch TOPICAL DAILY PRN 14 Days #14 patch PRN Reason: Pain Ibuprofen [Motrin] 400 mg PO Q6HR PRN tab PRN Reason: Pain hydrOXYzine pamoate [Vistaril] 50 mg PO DAILY PRN 30 Days #60 cap PRN Reason: Anxiety Discontinued FLUoxetine HCL [PROzac] 30 mg PO DAILY #30 cap QUEtiapine [SEROquel] 50 mg PO HS #30 tab Discharge Medication List Acetaminophen Tab [Tylenol] 650 mg PO Q4HR PRN tab 02/08/23 [Rx] Ibuprofen [Motrin] 400 mg PO Q6HR PRN tab 02/08/23 [Rx] Lidocaine 5% Patch [Lidoderm 5% Patch] 1 patch TOPICAL DAILY PRN 14 Days #14 patch 02/08/23 [Rx] Nicotine 14Mg/24Hr Patch [Habitrol] 1 patch TRANSDERM DAILY 14 Days #14 patch 02/08/23 [Rx] Sertraline [Zoloft] 100 mg PO DAILY 30 Days #30 tab 02/08/23 [Rx] hydrOXYzine pamoate [Vistaril] 50 mg PO DAILY PRN 30 Days #60 cap 02/08/23 [Rx] lamoTRIgine [LaMICtal] 50 mg PO BID 30 Days #120 tab 02/08/23 [Rx] traZODone HCL [Desyrel] 50 mg PO HS PRN 30 Days #30 tab 02/08/23 [Rx] Follow up Appointment(s)/Referral(s): [facility] [Outside] - 1 Week None,Stated [Primary Care Provider] - 1-2 days Activity/Diet/Wound Care/Special Instructions: Avoid the use of street drugs and alcohol. Take all medications as prescribed. When you are in need of refills on your medications, please contact your medical provider and/or outpatient psychiatrist to have this done. Please go to scheduled outpatient appointments for aftercare treatment. If symptoms return or become worse, call the crisis line at and/or go to the nearest emergency room for evaluation. Discharge Disposition: HOME SELF-CARE
== END 2023-02-08 12:24 | disposition home or self-care (01) | DRG 754 ==
LOC: EC 21:16 → 3MHU 02-02 01:06
PROVIDERS: ADMIT Psychiatry & Neurology Psychiatry; ATTEND Psychiatry & Neurology Psychiatry
DX: F32.9 Major depressive disorder, single episode, unspecified (principal); R45.851 Suicidal ideations; F15.10 Other stimulant abuse, uncomplicated; Z63.9 Problem related to primary support group, unspecified; R45.1 Restlessness and agitation; F41.9 Anxiety disorder, unspecified; Z79.899 Other long term (current) drug therapy; Z91.51 Personal history of suicidal behavior; Z28.310 Unvaccinated for COVID-19; Z28.21 Immunization not carried out because of patient refusal; Z20.822 Contact with and (suspected) exposure to COVID-19; Z71.51 Drug abuse counseling and surveillance of drug abuser; Z86.19 Personal history of other infectious and parasitic diseases
CPT/HCPCS: 80053; 80061; 80306; 81003; 81025; 82075; 82248; 83036; 84443; 85025; 87635

== ENCOUNTER 2023-04-03 16:12 | Inpatient (IN) | payer MEDICAID, OTHER ==
--- NOTE | 2023-04-03 17:16 | ED ---
General Adult HPI - General Source: RN notes reviewed <Cathy Corona - Last Filed: 04/03/23 17:18> - General Source: RN notes reviewed, old records reviewed - History of Present Illness -: unknown <Hans Barriga - Last Filed: 04/03/23 23:53> - General Stated complaint: mental health Time Seen by Provider: 04/03/23 17:16 - History of Present Illness Initial comments: Patient presents for psychiatric evaluation. Patient is suicidal. I asked boyfriend called the police today. Patient is petitioned. (Cathy Corona) This is a 32-year-old female who is boyfriend called the police today and petition for psychiatric evaluation. Patient presents today for psychiatric evaluation and treatment (Hans Barriga) - Related Data Home Medications Medication Instructions Recorded Confirmed buPROPion HCL [Wellbutrin XL] 150 mg PO DAILY 04/03/23 04/03/23 hydrOXYzine pamoate [Vistaril] 50 mg PO TID PRN 04/03/23 04/03/23 lamoTRIgine [LaMICtal] 75 mg PO BID@0800,1300 04/03/23 04/03/23 Allergies Allergy/AdvReac Type Severity Reaction Status Date / Time No Known Allergies Allergy Verified 04/03/23 18:13 Review of Systems ROS Other: All systems not noted in ROS Statement are negative. <Cathy Corona - Last Filed: 04/03/23 17:18> ROS Other: All systems not noted in ROS Statement are negative. <Hans Barriga - Last Filed: 04/03/23 23:53> ROS Statement: Those systems with pertinent positive or pertinent negative responses have been documented in the HPI. Past Medical History Past Medical History: No Reported History History of Any Multi-Drug Resistant Organisms: C-DIFF Date of last positivie culture/infection: 2016 MDRO Source:: C-Diff Past Surgical History: Adenoidectomy, Section, Ear Surgery, Hernia Repair, Tonsillectomy, Tubal Ligation Additional Past Surgical History / Comment(s): tubes in ears, colonoscopy and EGD 2016, knee surgery Past Anesthesia/Blood Transfusion Reactions: No Reported Reaction Past Psychological History: Anxiety Smoking Status: Current every day smoker Past Alcohol Use History: None Reported Past Drug Use History: None Reported - Past Family History Mother History Unknown: Yes Family Medical History: Cancer <Cathy Corona - Last Filed: 04/03/23 17:18> General Exam <Cathy Corona - Last Filed: 04/03/23 17:18> General appearance: alert, in no apparent distress Head exam: Present: atraumatic, normocephalic, normal inspection Eye exam: Present: normal appearance, PERRL, EOMI. Absent: scleral icterus, conjunctival injection, periorbital swelling ENT exam: Present: normal exam, mucous membranes moist Neck exam: Present: normal inspection. Absent: tenderness, meningismus, lymphadenopathy Respiratory exam: Present: normal lung sounds bilaterally. Absent: respiratory distress, wheezes, rales, rhonchi, stridor Cardiovascular Exam: Present: regular rate, normal rhythm, normal heart sounds. Absent: systolic murmur, diastolic murmur, rubs, gallop, clicks GI/Abdominal exam: Present: soft, normal bowel sounds. Absent: distended, ten derness, guarding, rebound, rigid Extremities exam: Present: normal inspection, full ROM, normal capillary refill. Absent: tenderness, pedal edema, joint swelling, calf tenderness Back exam: Present: normal inspection Neurological exam: Present: alert, oriented X3, CN II-XII intact Psychiatric exam: Present: normal affect, normal mood Skin exam: Present: warm, dry, intact, normal color. Absent: rash <Hans Barriga - Last Filed: 04/03/23 23:53> - General Exam Comments Initial Comments: Visual Physical Exam Vital signs reviewed General: Well-appearing, nontoxic, no acute distress. Head: Normocephalic, atraumatic Eyes: PERRLA, EOMI ENT: Airway patent Chest: Nonlabored breathing Skin: No visual rash, normal skin tone Neuro: Alert and oriented 3 Musculoskeletal: No gross abnormalities (Cathy Corona) Course <Hans Barriga - Last Filed: 04/03/23 23:53> Vital Signs 04/03/23 17:18 Temperature 98.6 F Pulse Rate 104 H Respiratory 20 Rate Blood Pressure 115/73 O2 Sat by Pulse 98 Oximetry - Reevaluation(s) Reevaluation #1: 04/03/23 23:53 Medical records reviewed 04/03/23 23:53 Medical clear for psychiatric evaluation (Hans Barriga) Medical Decision Making <Hans Barriga - Last Filed: 04/03/23 23:53> - Medical Decision Making 32 female to the emergency department for evaluation of psychiatric illness. Patient be admitted for psychiatric evaluation and treatment (Hans Barriga) - Lab Data Lab Results 04/03/23 04/03/23 Range/Units 18:40 20:23 Urine Opiates Screen Not Detected (NotDetected) Ur Oxycodone Screen Not Detected (NotDetected) Urine Methadone Screen Not Detected (NotDetected) Ur Propoxyphene Screen Not Detected (NotDetected) Ur Barbiturates Screen Not Detected (NotDetected) U Tricyclic Antidepress Not Detected (NotDetected) Ur Phencyclidine Scrn Not Detected (NotDetected) Ur Amphetamines Screen Not Detected (NotDetected) U Methamphetamines Scrn Not Detected (NotDetected) U Benzodiazepines Scrn Not Detected (NotDetected) Urine Cocaine Screen Not Detected (NotDetected) U Marijuana (THC) Screen Not Detected (NotDetected) Coronavirus (PCR) Not Detected (Not Detectd) Disposition <Cathy Corona - Last Filed: 04/03/23 17:18> Is patient prescribed a controlled substance at d/c from ED?: No <Hans Barriga - Last Filed: 04/03/23 23:53> Clinical Impression: Adjustment reaction of adult life, Mood disorder, Acute anxiety, Suicidal ideation, Major depressive disorder, Planning to commit suicide Disposition: TRANSFER TO PSYCH HOSP/UNIT Condition: Fair
[2023-04-03 19:30] LABS: Amphetamine Screen,Urine Not Detected (NotDetected); Barbiturate Screen,Urine Not Detected (NotDetected); Benzodiazepines Screen,Urine Not Detected (NotDetected); Cocaine Screen,Urine Not Detected (NotDetected); Methadone Screen, Urine Not Detected (NotDetected); Opiate Screen,Urine Not Detected (NotDetected); Oxycodone Screen, Urine Not Detected (NotDetected); Phencyclidine Screen,Urine Not Detected (NotDetected); Tricyclic Antidepressant,Urine Not Detected (NotDetected); Urn Cannabinoid Scrn Not Detected (NotDetected)
[2023-04-03] MEDS ORDERED: MAGNESIUM HYDROXIDE 2,400 MG/10 ML CUP PO PRN (21:13)
[2023-04-03] MEDS ORDERED: MAG HYDROX/AL HYDROX/SIMETH 30 ML CUP PO PRN (21:13)
[2023-04-03] MEDS ORDERED: hydrOXYzine HCL 50 MG/ML 1 ML VIAL IM PRN (21:17)
[2023-04-03] MEDS ORDERED: OLANZapine 10 MG VIAL IM PRN (21:18)
[2023-04-03] MEDS: hydrOXYzine pamoate 25 MG CAP PO PRN (22:36)
[2023-04-03] MEDS: NICOTINE 14MG/24HR PATCH TRANSDERM SCH (22:53)
[2023-04-04] MEDS: OLANZapine 5 MG TAB PO PRN (01:32)
[2023-04-04] MEDS: ACETAMINOPHEN TAB 325 MG TAB PO PRN ×2 (01:32→23:16)
[2023-04-04 03:03] LABS: Appearance,Urine Clear (Clear); Bilirubin,Urine Negative (Negative); Blood,Urine Negative (Negative); Color,Urine Light Yellow; Glucose,Urine (UA) Negative (Negative); Ketones,Urine Negative (Negative); Leukocyte Esterase,Urine Negative (Negative); Nitrite,Urine Negative (Negative); Protein,Urine Negative (Negative); Specific Gravity,Urine 1.007 (1.001-1.035); Urobilinogen,Urine <2.0 mg/dL (<2.0)
[2023-04-04] MEDS ORDERED: lamoTRIgine 25 MG TAB PO SCH (08:00)
[2023-04-04] MEDS ORDERED: NICOTINE 14MG/24HR PATCH TRANSDERM SCH (09:00)
[2023-04-04] MEDS: NICOTINE 14MG/24HR PATCH TRANSDERM SCH (09:11)
[2023-04-04 09:58] LABS: Basophils % (A) 1 %; Eosinophils # (A) 0.2 k/uL (0-0.7); Eosinophils % (A) 3 %; HCT 44.7 % (34.0-46.0); HGB 14.3 gm/dL (11.4-16.0); Lymphocytes # (A) 2.7 k/uL (1.0-4.8); Lymphocytes % (A) 32 %; MCH 30.8 pg (25.0-35.0); MCHC 31.9 g/dL (31.0-37.0); MCV 96.5 fL (80.0-100.0); Mean Platelet Volume 6.9; Monocytes # (A) 0.4 k/uL (0-1.0); Monocytes % (A) 5 %; Neutrophils # (A) 4.9 k/uL (1.3-7.7); Neutrophils % (A) 59 %; Platelet Count 381 k/uL (150-450); RBC 4.64 m/uL (3.80-5.40); WBC 8.3 k/uL (3.8-10.6)
[2023-04-04 10:12] LABS: ALT 24 U/L (4-34); AST 23 U/L (14-36); African American GFR (CKD) >90 (>60 ml/min/1.73 sqM); Albumin 3.9 g/dL (3.5-5.0); Alkaline Phosphatase 52 U/L (38-126); Anion Gap 10 mmol/L; Blood Urea Nitrogen 9 mg/dL (7-17); Calcium 9.2 mg/dL (8.4-10.2); Carbon Dioxide 24 mmol/L (22-30); Chloride 107 mmol/L (98-107); Glucose 88 mg/dL (74-99); Non-African American GFR(CKD) >90 (>60 ml/min/1.73 sqM); Potassium 4.2 mmol/L (3.5-5.1); Sodium 141 mmol/L (137-145); Total Bilirubin 0.4 mg/dL (0.2-1.3); Total Protein 6.6 g/dL (6.3-8.2)
[2023-04-04] MEDS: hydrOXYzine pamoate 25 MG CAP PO PRN ×2 (11:07→23:16)
[2023-04-04] MEDS ORDERED: traZODone HCL 50 MG TAB PO PRN (11:58)
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
[2023-04-04] MEDS: SERTRALINE 50 MG TAB PO SCH (12:23)
[2023-04-04] MEDS: lamoTRIgine 25 MG TAB PO SCH (20:37)
--- NOTE | 2023-04-05 00:28 | P.CONS ---
History of Present Illness - Reason for Consult Consult date: 04/05/23 - History of Present Illness The patient is a 32-year-old female with a PMH of tobacco abuse and chronic lower back and knee pains with presented to the emergency room with complaints of depression and suicidal ideation. The patient was admitted to the mental health unit where she was seen and evaluated. The patient reports that she has been trying to get away from her boyfriend as he is erratic. Patient reports that she's been suffering with lower back and knee pain ever since she fell off a roof many years ago. She requested lidocaine patches for pain. She denied any physical complaints at the time of interview. She denied experiencing chest discomfort, shortness of breath, fever, chills, cough, nausea, vomiting, abdominal pain, diarrhea. Patient reports smoking half pack of cigarettes daily. She denied substance use. Review of systems: Pertinent positives and negatives as discussed in HPI, a complete review of systems was performed and all other systems are negative. Physical examination: General: non toxic, no distress, appears at stated age, obese Derm: no unusual rashes/lesions, no unusual ecchymoses, warm, dry Head: atraumatic, normocephalic, symmetric Eyes: EOMI, no lid lag, anicteric sclera ENT: Nose and ears atraumatic, no thrush, no pharyngeal erythema Neck: trachea midline, supple Mouth: no lip lesion, mucus membranes moist Cardiovascular: S1S2 reg, no murmur, no edema Lungs: CTA bilateral, no rhonchi, no rales , no accessory muscle use Abdominal: soft, nontender to palpation, no guarding Ext: no gross muscle atrophy, no contractures, Neuro: No gross focal neuro deficits noted Psych: Alert, oriented, appropriate affect Assessment: Chronic conditions: Chronic lower back and knee pain Tobacco abuse Depression and suicidal ideation Imaging: None performed Data Review: Laboratory evaluation as reviewed with WBC count 8.3, hemoglobin 14.3, sodium 141, potassium 4.2, glucose 88, TSH 1.14. Plan: Lidocaine patch ordered Advised patient on importance of cessation from tobacco use Defer management of depression and suicidal ideation to the primary psychiatry service Thank you for allowing us to participate in the care of this patient. We will follow peripherally. Do not hesitate to contact us with questions. Someone can be reached from the [facility] hospitalist group at all hours of the day at [phone]. Past Medical History Past Medical History: No Reported History History of Any Multi-Drug Resistant Organisms: None Reported Year Discovered:: None MDRO Source:: None Past Surgical History: Adenoidectomy, Section, Ear Surgery, Hernia Repair, Tonsillectomy, Tubal Ligation Additional Past Surgical History / Comment(s): tubes in ears, colonoscopy and EGD 2015, knee surgery Past Anesthesia/Blood Transfusion Reactions: No Reported Reaction Past Psychological History: Anxiety Smoking Status: Current every day smoker Past Alcohol Use History: None Reported Past Drug Use History: None Reported - Past Family History Mother History Unknown: Yes Family Medical History: Cancer Medications and Allergies Home Medications Medication Instructions Recorded Confirmed Type buPROPion HCL [Wellbutrin XL] 150 mg PO DAILY 04/03/23 04/03/23 History hydrOXYzine pamoate [Vistaril] 50 mg PO TID PRN 04/03/23 04/03/23 History lamoTRIgine [LaMICtal] 75 mg PO BID@0800,1300 04/03/23 04/03/23 History Allergies Allergy/AdvReac Type Severity Reaction Status Date / Time No Known Allergies Allergy Verified 04/03/23 18:13 Physical Exam Vitals: Vital Signs Temp Pulse Resp BP 04/04/23 01:34 98.0 F 105 H 15 141/86 Results CBC & Chem 7: 04/04/23 09:18 04/04/23 09:18
[2023-04-05] MEDS: lamoTRIgine 25 MG TAB PO SCH ×2 (08:40→20:29)
[2023-04-05] MEDS: NICOTINE 14MG/24HR PATCH TRANSDERM SCH (08:40)
[2023-04-05] MEDS: SERTRALINE 50 MG TAB PO SCH (08:41)
[2023-04-05] MEDS: LIDOCAINE 5% PATCH TOPICAL SCH (08:41)
--- NOTE | 2023-04-05 11:22 | P.PN ---
Progress Note - Text Progress Note Date: 04/05/23 Interval History: Patient was seen [wandering the hallways] and was directable and agreeable to speak with handbook writer in the office. She was walking with an answer male patient today. She claims that she is doing a bit better with regards to her mood and anxiety. She states that she did not sleep well at all last night due to "commotion on the unit". She states that she slept about 2-3 hours. She was agreeable to have her trazodone increased for tonight. She claims that she is trying to go to some groups and participate as much as she can. States that her anxiety is still somewhat elevated however has been improving mildly. At this time patient denies any suicidal or homical ideations, intent or plan. Patient denies any auditory, visual hallucinations and denies any paranoia or delusions. Patient denies any side effects from the medications and has been compliant with meds. Mental Status Exam: General Appearance: Patient appears to be mildly overweight, blue hair, stated age is alert, directable, and attempts to cooperate. Patient appears to have improving hygiene and grooming. Behavior: Patient is seated without any agitated behavior. Appears somewhat anxious, improving mildly Speech: Patient's speech is fluent and nonpressured. Less Hesitant Mood/Affect: Patient reports their mood is improving mildly, affect is congruent Suicidality/Homicidality: Patient denies having any homicidal ideation intent or plan. Denies any suicidal ideations intent or plan Perceptions: Patient denies any visual hallucinations and denies any auditory hallucinations Though content/process: There is no evidence of any delusional thought content and thought process is linear and goal-directed. Memory and concentration: AOX3, grossly intact for the purposes of this session Judgment and insight: poor, improving mildly IMPRESSIONS: major depressive disorder without psychotic features anxiety disorder NOS nicotine dependence PLAN: -Patient is admitted under voluntary status to MHU for stabilization of psychiatric symptoms and safety. Patient has signed adult voluntary form and medication consent and is placed in patient's chart. -Medications : zoloft 50 mg daily for mood/anxiety, increase trazodone 75 mg qhs insomnia, lamictal 50 mg BID mood stabilization. vistaril 50 mg tid prn for anxiety. -Ativan and Haldol PRN for agitation/aggression -NRT - nicotine patch -SW on board for discharge planning. Encourage patient to participate in groups to work on coping skills. possible d/c saturday vs saturday back home with [facility] f/u
[2023-04-05] MEDS: NICOTINE GUM (POLACRILEX) 2 MG GUM BUCCAL PRN ×2 (16:11→20:04)
[2023-04-05] MEDS: hydrOXYzine pamoate 25 MG CAP PO PRN ×2 (16:11→21:51)
[2023-04-05] MEDS: traZODone HCL 50 MG TAB PO SCH (21:50)
[2023-04-05] MEDS: ACETAMINOPHEN TAB 325 MG TAB PO PRN (23:12)
[2023-04-06] MEDS: LIDOCAINE 5% PATCH TOPICAL SCH (08:30)
[2023-04-06] MEDS: SERTRALINE 50 MG TAB PO SCH (08:32)
[2023-04-06] MEDS: hydrOXYzine pamoate 25 MG CAP PO PRN ×2 (08:32→21:38)
[2023-04-06] MEDS: lamoTRIgine 25 MG TAB PO SCH ×2 (08:32→20:34)
[2023-04-06] MEDS: NICOTINE GUM (POLACRILEX) 2 MG GUM BUCCAL PRN ×4 (08:32→21:39)
[2023-04-06] MEDS: ACETAMINOPHEN TAB 325 MG TAB PO PRN ×4 (08:33→21:55)
[2023-04-06] MEDS: OLANZapine 5 MG TAB PO PRN (23:18)
[2023-04-06] MEDS: traZODone HCL 50 MG TAB PO SCH (23:19)
[2023-04-07] MEDS: SERTRALINE 50 MG TAB PO SCH (07:58)
[2023-04-07] MEDS: lamoTRIgine 25 MG TAB PO SCH ×2 (07:58→20:40)
[2023-04-07] MEDS: LIDOCAINE 5% PATCH TOPICAL SCH ×2 (07:58→09:44)
[2023-04-07] MEDS: hydrOXYzine pamoate 25 MG CAP PO PRN (09:45)
[2023-04-07] MEDS: ACETAMINOPHEN TAB 325 MG TAB PO PRN (09:46)
[2023-04-07] MEDS: NICOTINE GUM (POLACRILEX) 2 MG GUM BUCCAL PRN ×3 (09:46→23:42)
--- NOTE | 2023-04-07 16:12 | P.PN ---
Progress Note - Text Progress Note Date: 04/06/23 Interval history: Patient was seen wandering the hallways with a female peer and was directable and agreeable to speak with film writer. She reports her mood is "great". Denies problems with sleep or appetite. At this time, patient denies any suicidal or homicidal ideation, intent or plan. Denies any auditory or visual hallucinations. Patient denies any side effects from the medications and has been compliant with meds. She complains of left knee pain; reports she has a history of an old injury in that knee and it started hurting again after admission. No swelling or redness observed on exam. We discussed she will follow-up with a PCP for outpatient MRI of the knee and she agrees. Mental status exam: General Appearance: Patient appears to be stated age, hair dyed blue. Behavior: No agitated behavior. Patient is calm and directable. She is alert, directable, and cooperative. Speech: Patient's speech is fluent and non-pressured. Mood/Affect: Mood is improving, affect is congruent and constricted. Suicidality/Homicidality: Patient denies having any suicidal or homicidal ideation intent or plan. Perceptions: Patient denies any auditory or visual hallucinations. Though content/process: There is no evidence of any delusional thought content and thought process is linear and goal-directed. Memory and concentration: AOX3, grossly intact for the purposes of this session Judgment and insight: improving mildly Assessment/Plan: Continue with current diagnosis. Patient continues to meet criteria for inpatient psychiatric admission for symptom stabilization and safety. Patient will be maintained on current psychotropic medication regimen. Monitor for medication compliance and for any psychotropic medication side effects. Will continue to monitor ongoing response to treatment. Encouraged participation in milieu.
[2023-04-07] MEDS ORDERED: IBUPROFEN 600 MG TAB PO PRN (16:14)
--- NOTE | 2023-04-07 16:25 | P.PN ---
Progress Note - Text Progress Note Date: 04/07/23 Interval history: Patient was seen wandering the hallways after just taking a shower, and was directable and agreeable to speak with com writer. She reports her mood is good. Denies problems with sleep or appetite. At this time, patient denies any suicidal or homicidal ideation, intent or plan. Denies any auditory or visual hallucinations. Patient denies any side effects from the medications and has been compliant with meds. She continues to complain of left knee pain that she reports improved after adding lidocaine patch. We discussed she will follow-up with a PCP for outpatient MRI of the knee and she agrees. No other concerns. Mental status exam: General Appearance: Patient appears to be stated age, hair dyed blue. Behavior: No agitated behavior. Patient is calm and directable. She is alert, directable, and cooperative. Speech: Patient's speech is fluent and non-pressured. Mood/Affect: Mood is improving, affect is congruent and constricted. Suicidality/Homicidality: Patient denies having any suicidal or homicidal ideation intent or plan. Perceptions: Patient denies any auditory or visual hallucinations. Though content/process: There is no evidence of any delusional thought content and thought process is linear and goal-directed. Memory and concentration: AOX3, grossly intact for the purposes of this session Judgment and insight: improving mildly Assessment/Plan: Continue with current diagnosis. Patient continues to meet criteria for inpatien t psychiatric admission for symptom stabilization and safety. Patient will be maintained on current psychotropic medication regimen. Tylenol, Ibuprofen alternating PRN for knee pain. She will need a PCP appointment after discharge to follow-up for chronic knee pain. Monitor for medication compliance and for any psychotropic medication side effects. Will continue to monitor ongoing response to treatment. Encouraged participation in milieu.
[2023-04-07] MEDS: traZODone HCL 50 MG TAB PO SCH (20:41)
[2023-04-08] MEDS: hydrOXYzine pamoate 25 MG CAP PO PRN (02:38)
[2023-04-08 06:15] VITALS: BP 114/57; PULSE 92; RESP 18; TEMP 98
[2023-04-08] MEDS: lamoTRIgine 25 MG TAB PO SCH (08:28)
[2023-04-08] MEDS: SERTRALINE 50 MG TAB PO SCH (08:28)
[2023-04-08] MEDS: LIDOCAINE 5% PATCH TOPICAL SCH (08:28)
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
== END 2023-04-08 12:33 | disposition home or self-care (01) | DRG 754 ==
LOC: EC 16:12 → 3MHU 21:09
PROVIDERS: ADMIT Psychiatry & Neurology Psychiatry; ATTEND Psychiatry & Neurology Psychiatry
DX: F32.9 Major depressive disorder, single episode, unspecified (principal); F17.210 Nicotine dependence, cigarettes, uncomplicated; M25.569 Pain in unspecified knee; F43.22 Adjustment disorder with anxiety; T14.90XS Injury, unspecified, sequela; M54.50 Low back pain, unspecified; W13.2XXS Fall from, out of or through roof, sequela; R45.851 Suicidal ideations; Z56.0 Unemployment, unspecified; Z79.899 Other long term (current) drug therapy; Z20.822 Contact with and (suspected) exposure to COVID-19; Z28.310 Unvaccinated for COVID-19; Z28.21 Immunization not carried out because of patient refusal
CPT/HCPCS: 80053; 80175; 80306; 81003; 81025; 82075; 83036; 84443; 85025; 87635; 99285

== ENCOUNTER 2023-07-21 17:45 | Emergency (ER) | payer OTHER ==
[2023-07-21] MEDS ORDERED: ACTIVATED CHARCOAL-SORBITOL 50 GM/240 ML BOTTLE PO STA (17:47)
[2023-07-21 17:53] VITALS: TEMP 98.4
--- NOTE | 2023-07-21 17:53 | ED ---
Overdose HPI - History of Present Illness MD Complaint: intentional overdose Onset/Timin -: hour(s) <Magnolia Rodriguez - Last Filed: 07/22/23 00:15> <Hans An - Last Filed: 07/22/23 13:02> - General Stated Complaint: Mental Health Time Seen by Provider: 07/21/23 17:47 - History of Present Illness Initial Comments: Celia is a 32-year-old female presents the ER today after an intentional overdose. Patient reports she took a handful of 100 mg Vistaril at 4:30 PM, she then went to the local fire department advised them of her ingestion and was transferred to the hospital for further evaluation. 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 (Magnolia Rodriguez) - Related Data Home Medications Medication Instructions Recorded Confirmed Dicyclomine [Bentyl] 10 mg PO DIRECTED 07/22/23 07/22/23 Hyoscyamine Sulfate [Levsin] 0.125 mg PO DIRECTED 07/22/23 07/22/23 Methylphenidate HCl [Concerta] 36 mg PO DAILY 07/22/23 07/22/23 Sertraline [Zoloft] 100 mg PO DAILY 07/22/23 07/22/23 hydrOXYzine pamoate [Vistaril] 50 mg PO TID PRN 07/22/23 07/22/23 lamoTRIgine [LaMICtal Xr] 100 mg PO DAILY 07/22/23 07/22/23 Previous Rx's Medication Instructions Recorded Sertraline [Zoloft] 50 mg PO DAILY 30 Days #30 tab 04/08/23 Allergies Allergy/AdvReac Type Severity Reaction Status Date / Time No Known Allergies Allergy Verified 07/22/23 10:58 Review of Systems ROS Other: All systems not noted in ROS Statement are negative. <Magnolia Rodriguez - Last Filed: 07/22/23 00:15> ROS Other: All systems not noted in ROS Statement are negative. <Hans An - Last Filed: 07/22/23 13:02> ROS Statement: Those systems with pertinent positive or pertinent negative responses have been documented in the HPI. Past Medical History Past Medical History: No Reported History History of Any Multi-Drug Resistant Organisms: None Reported Date of last positivie culture/infection: None MDRO Source:: None Past Surgical History: Adenoidectomy, Section, Ear Surgery, Hernia Repair, Tonsillectomy, Tubal Ligation Additional Past Surgical History / Comment(s): tubes in ears, colonoscopy and EGD 2016, knee surgery Past Anesthesia/Blood Transfusion Reactions: No Reported Reaction Past Psychological History: Anxiety Smoking Status: Current every day smoker Past Alcohol Use History: None Reported Past Drug Use History: None Reported - Past Family History Mother History Unknown: Yes Family Medical History: Cancer <Magnolia Rodriguez - Last Filed: 07/22/23 00:15> General Exam <Magnolia Rodriguez - Last Filed: 07/22/23 00:15> - General Exam Comments Initial Comments: Physical Exam GENERAL: Patient is well-developed and well-nourished. Patient is nontoxic and well- hydrated and is in no distress. HENT: Normocephalic, Atraumatic. EYES: PERRL, EOMI PULMONARY: Unlabored respirations. No audible rales rhonchi or wheezing was noted. CARDIOVASCULAR: There is a regular rate and rhythm without any murmurs gallops or rubs. ABDOMEN: Soft and nontender with normal bowel sounds. SKIN: Skin is clear with no lesions or rashes and otherwise unremarkable. : Deferred NEUROLOGIC: Patient is alert and oriented x3. Moving all extremities spontaneously MUSCULOSKELETAL: Normal extremities with adequate strength and full range of motion. No lower extremity swelling or edema. No calf tenderness. PSYCHIATRIC: Crying, depressed, suicidal (Magnolia Rodriguez) Course Vital Signs 07/21/23 07/21/23 07/21/23 17:48 19:28 20:54 Temperature 98.4 F Pulse Rate 77 76 92 Respiratory 18 16 16 Rate Blood Pressure 134/86 116/84 127/77 O2 Sat by Pulse 98 98 97 Oximetry 07/21/23 07/22/23 07/22/23 22:38 03:00 06:10 Temperature Pulse Rate 67 70 Respiratory 16 16 16 Rate Blood Pressure 100/51 121/76 O2 Sat by Pulse 99 98 Oximetry Medical Decision Making - Lab Data Result diagrams: 07/21/23 17:58 07/21/23 17:58 - EKG Data -: EKG Interpreted by Me <Magnolia Rodriguez - Last Filed: 07/22/23 00:15> - Lab Data Result diagrams: 07/21/23 17:58 07/21/23 17:58 <Hans An - Last Filed: 07/22/23 13:02> - Medical Decision Making The patient was seen and evaluated history is obtained from the patient and EMS Onset from ingestion to arrival in the ER was less than 1 hour therefore charcoal was given on arrival Overdose workup was initiated Poison control was contacted and recommendations were followed Repeat EKG was unremarkable 10:30 PM patient is medically cleared for evaluation by psychiatric services (Magnolia Rodriguez) Was pt. sent in by a medical professional or institution (Dr. PA, [employer], urgent care, hospital, or snf...) When possible be specific @ -No Did you speak to anyone other than the patient for history (EMS, parent, family, police, friend...)? What history was obtained from this source @ -No Did you review nursing and triage notes (agree or disagree)? Why? @ -I reviewed and agree with nursing and triage notes Were old charts reviewed (outside hosp., previous admission, EMS record, old EKG, old radiological studies, urgent care reports/EKG's, snf records)? Report findings @ -No old charts were reviewed Differential Diagnosis (chest pain, altered mental status, abdominal pain women, abdominal pain men, vaginal bleeding, weakness, fever, dyspnea, syncope, headache, dizziness, GI bleed, back pain, seizure, CVA, palpatations, mental health, musculoskeletal)? @ -Differential Mental Health Depression, anxiety, bipolar, psychosis, schizophrenia, borderline personality, situational depression, adjustment disorder, behavioral disorder, brain tumor, malingering, substance abuse, encephalopathy, medication reaction, dementia, hypothyroidism, degenerative neurologic disorder, lupus.... This is not meant to be all-inclusive list EKG interpreted by me (3pts min.). @ -As above X-rays interpreted by me (1pt min.). @ -None done CT interpreted by me (1pt min.). @ -None done U/S interpreted by me (1pt. min.). @ -None done What testing was considered but not performed or refused? (CT, X-rays, U/S, labs )? Why? @ -None What meds were considered but not given or refused? Why? @ -None Did you discuss the management of the patient with other professionals (professionals i.e. , PA, [employer], lab, RT, psych nurse, geriatric social work professor, label paster, teacher, data officer, rn case management)? Give summary @ -No Was smoking cessation discussed for >3mins.? @ -No Was critical care preformed (if so, how long)? @ -No Were there social determinants of health that impacted care today? How? (Homelessness, low income, unemployed, alcoholism, drug addiction, transportation, low edu. Level, literacy, decrease access to med. care, prison, rehab)? @ -No Was there de-escalation of care discussed even if they declined (Discuss DNR or withdrawal of care, Hospice)? DNR status @ -No What co-morbidities impacted this encounter? (DM, HTN, Smoking, COPD, CAD, Cancer, CVA, ARF, Chemo, Hep., AIDS, mental health diagnosis, sleep apnea, morbid obesity)? @ -None Was patient admitted / discharged? Hospital course, mention meds given and route, prescriptions, significant lab abnormalities, going to OR and other pertinent info. @ -Patient was initially evaluated by Dr. Rodriguez and medically cleared for psychiatric evaluation. The psychiatric evaluation was completed by the psychiatric nurse with consultation with the psychiatrist and determined that the patient could safely be discharged home there was a safety plan put in place and patient will be discharged home Undiagnosed new problem with uncertain prognosis? @ -No Drug Therapy requiring intensive monitoring for toxicity (Heparin, Nitro, Insulin, Cardizem)? @ -No Were any procedures done? @ -No Diagnosis/symptom? @ -Situational depression Acute, or Chronic, or Acute on Chronic? @ -Acute Uncomplicated (without systemic symptoms) or Complicated (systemic symptoms)? @ -Complicated Side effects of treatment? @ -No Exacerbation, Progression, or Severe Exacerbation? @ -No Poses a threat to life or bodily function? How? (Chest pain, [place], [place], pneumonia, PE, COPD, DKA, ARF, appy, cholecystitis, CVA, Diverticulitis, Homicidal, Suicidal, threat to staff... and all critical care pts) @ -No Diagnosis/symptom? @ -Overdose Acute, or Chronic, or Acute on Chronic? @ -Acute Uncomplicated (without systemic symptoms) or Complicated (systemic symptoms)? @ -Complicated Side effects of treatment? @ -none Exacerbation, Progression, or Severe Exacerbation] @ -no Poses a threat to life or bodily function? @ -no (Hans An) - Lab Data Lab Results 07/21/23 07/21/23 07/21/23 Range/Units 17:58 17:58 17:58 WBC 11.9 H (3.8-10.6) k/uL RBC 4.60 (3.80-5.40) m/uL Hgb 13.8 (11.4-16.0) gm/dL Hct 43.3 (34.0-46.0) % MCV 94.0 (80.0-100.0) fL MCH 30.0 (25.0-35.0) pg MCHC 31.9 (31.0-37.0) g/dL RDW 12.4 (11.5-15.5) % Plt Count 431 (150-450) k/uL MPV 7.0 Neutrophils % 79 % Lymphocytes % 14 % Monocytes % 5 % Eosinophils % 1 % Basophils % 0 % Neutrophils # 9.3 H (1.3-7.7) k/uL Lymphocytes # 1.7 (1.0-4.8) k/uL Monocytes # 0.5 (0-1.0) k/uL Eosinophils # 0.2 (0-0.7) k/uL Basophils # 0.0 (0-0.2) k/uL PT 10.1 (9.0-12.0) sec INR 0.9 (<1.2) APTT 23.9 (22.0-30.0) sec Sodium (137-145) mmol/L Potassium (3.5-5.1) mmol/L Chloride (98-107) mmol/L Carbon Dioxide (22-30) mmol/L Anion Gap mmol/L BUN (7-17) mg/dL Creatinine (0.52-1.04) mg/dL Est GFR (CKD-EPI)AfAm (>60 ml/min/1.73 sqM) Est GFR (CKD-EPI)NonAf (>60 ml/min/1.73 sqM) Glucose (74-99) mg/dL Calcium (8.4-10.2) mg/dL Magnesium (1.6-2.3) mg/dL Total Bilirubin (0.2-1.3) mg/dL AST (14-36) U/L ALT (4-34) U/L Alkaline Phosphatase (38-126) U/L Total Protein (6.3-8.2) g/dL Albumin (3.5-5.0) g/dL Urine HCG, Qual Not Detected (Not Detectd) Salicylates mg/dL Urine Opiates Screen (NotDetected) Ur Oxycodone Screen (NotDetected) Urine Methadone Screen (NotDetected) Ur Propoxyphene Screen (NotDetected) Acetaminophen ug/mL Ur Barbiturates Screen (NotDetected) U Tricyclic Antidepress (NotDetected) Ur Phencyclidine Scrn (NotDetected) Ur Amphetamines Screen (NotDetected) U Methamphetamines Scrn (NotDetected) U Benzodiazepines Scrn (NotDetected) Urine Cocaine Screen (NotDetected) U Marijuana (THC) Screen (NotDetected) Serum Alcohol mg/dL 07/21/23 07/21/23 Range/Units 17:58 17:58 WBC (3.8-10.6) k/uL RBC (3.80-5.40) m/uL Hgb (11.4-16.0) gm/dL Hct (34.0-46.0) % MCV (80.0-100.0) fL MCH (25.0-35.0) pg MCHC (31.0-37.0) g/dL RDW (11.5-15.5) % Plt Count (150-450) k/uL MPV Neutrophils % % Lymphocytes % % Monocytes % % Eosinophils % % Basophils % % Neutrophils # (1.3-7.7) k/uL Lymphocytes # (1.0-4.8) k/uL Monocytes # (0-1.0) k/uL Eosinophils # (0-0.7) k/uL Basophils # (0-0.2) k/uL PT (9.0-12.0) sec INR (<1.2) APTT (22.0-30.0) sec Sodium 137 (137-145) mmol/L Potassium 4.1 (3.5-5.1) mmol/L Chloride 105 (98-107) mmol/L Carbon Dioxide 24 (22-30) mmol/L Anion Gap 8 mmol/L BUN 9 (7-17) mg/dL Creatinine 0.63 (0.52-1.04) mg/dL Est GFR (CKD-EPI)AfAm >90 (>60 ml/min/1.73 sqM) Est GFR (CKD-EPI)NonAf >90 (>60 ml/min/1.73 sqM) Glucose 101 H (74-99) mg/dL Calcium 9.5 (8.4-10.2) mg/dL Magnesium 2.0 (1.6-2.3) mg/dL Total Bilirubin 0.4 (0.2-1.3) mg/dL AST 25 (14-36) U/L ALT 20 (4-34) U/L Alkaline Phosphatase 61 (38-126) U/L Total Protein 7.2 (6.3-8.2) g/dL Albumin 4.1 (3.5-5.0) g/dL Urine HCG, Qual (Not Detectd) Salicylates <1.0 mg/dL Urine Opiates Screen Not Detected (NotDetected) Ur Oxycodone Screen Not Detected (NotDetected) Urine Methadone Screen Not Detected (NotDetected) Ur Propoxyphene Screen Not Detected (NotDetected) Acetaminophen <10.0 ug/mL Ur Barbiturates Screen Not Detected (NotDetected) U Tricyclic Antidepress Not Detected (NotDetected) Ur Phencyclidine Scrn Not Detected (NotDetected) Ur Amphetamines Screen Not Detected (NotDetected) U Methamphetamines Scrn Not Detected (NotDetected) U Benzodiazepines Scrn Not Detected (NotDetected) Urine Cocaine Screen Not Detected (NotDetected) U Marijuana (THC) Screen Detected H (NotDetected) Serum Alcohol <10 mg/dL - EKG Data EKG Comments: EKG obtained as part of the overdose reevaluation, EKG obtained at 2232 rate is 66 rhythm is sinus normal axis normal intervals GA 139 Curasol to 3 QTC 418 elevations or depressions or arrhythmias no evidence of ischemia or infarction. (Magnolia Rodriguez) Disposition <Magnolia Rodriguez - Last Filed: 07/22/23 00:15> Is patient prescribed a controlled substance at d/c from ED?: No Time of Disposition: 13:01 <Hans An - Last Filed: 07/22/23 13:02> Clinical Impression: Suicide attempt by multiple drug overdose, Situational depression Disposition: HOME SELF-CARE Instructions (If sedation given, give patient instructions): Adult Overdose (ED), Depression (ED) Referrals: None,Stated [Primary Care Provider] - 1-2 days
[2023-07-21 18:40] LABS: Basophils % (A) 0 %; Eosinophils # (A) 0.2 k/uL (0-0.7); Eosinophils % (A) 1 %; HCT 43.3 % (34.0-46.0); HGB 13.8 gm/dL (11.4-16.0); Lymphocytes # (A) 1.7 k/uL (1.0-4.8); Lymphocytes % (A) 14 %; MCHC 31.9 g/dL (31.0-37.0); Monocytes # (A) 0.5 k/uL (0-1.0); Monocytes % (A) 5 %; Neutrophils # (A) 9.3 k/uL (1.3-7.7); Neutrophils % (A) 79 %; Platelet Count 431 k/uL (150-450); RDW 12.4 % (11.5-15.5); WBC 11.9 k/uL (3.8-10.6)
[2023-07-21 18:53] LABS: INR 0.9 (<1.2); Partial Thromboplastin Time 23.9 sec (22.0-30.0); Prothrombin Time 10.1 sec (9.0-12.0)
[2023-07-21 18:56] LABS: ALT 20 U/L (4-34); AST 25 U/L (14-36); Acetaminophen <10.0 ug/mL; African American GFR (CKD) >90 (>60 ml/min/1.73 sqM); Albumin 4.1 g/dL (3.5-5.0); Alcohol <10 mg/dL; Alkaline Phosphatase 61 U/L (38-126); Anion Gap 8 mmol/L; Blood Urea Nitrogen 9 mg/dL (7-17); Calcium 9.5 mg/dL (8.4-10.2); Carbon Dioxide 24 mmol/L (22-30); Chloride 105 mmol/L (98-107); Glucose 101 mg/dL (74-99); Non-African American GFR(CKD) >90 (>60 ml/min/1.73 sqM); Potassium 4.1 mmol/L (3.5-5.1); Salicylate <1.0 mg/dL; Sodium 137 mmol/L (137-145); Total Bilirubin 0.4 mg/dL (0.2-1.3); Total Protein 7.2 g/dL (6.3-8.2)
[2023-07-21 19:30] VITALS: RESP 16
[2023-07-21 23:16] LABS: Amphetamine Screen,Urine Not Detected (NotDetected); Barbiturate Screen,Urine Not Detected (NotDetected); Benzodiazepines Screen,Urine Not Detected (NotDetected); Cocaine Screen,Urine Not Detected (NotDetected); Methadone Screen, Urine Not Detected (NotDetected); Opiate Screen,Urine Not Detected (NotDetected); Oxycodone Screen, Urine Not Detected (NotDetected); Phencyclidine Screen,Urine Not Detected (NotDetected); Tricyclic Antidepressant,Urine Not Detected (NotDetected); Urn Cannabinoid Scrn Detected (NotDetected)
[2023-07-22 06:13] VITALS: BP 121/76; PULSE 70
== END 2023-07-22 13:10 | disposition home or self-care (01) ==
LOC: EC 17:45
DX: T43.592A Poisoning by other antipsychotics and neuroleptics, intentional self-harm, initial encounter (principal); F32.A Depression, unspecified; F41.9 Anxiety disorder, unspecified; F17.200 Nicotine dependence, unspecified, uncomplicated; Z79.899 Other long term (current) drug therapy
CPT/HCPCS: 82075; 36415; 93005; 80053; 83735; 85025; 85610; 85730; 81025; 80306; 80143; 80179; 99285; G0480; 80320

== ENCOUNTER 2024-01-17 17:24 | Inpatient (IN) | payer MEDICAID, OTHER ==
[2024-01-17] MEDS: LORazepam 1 MG TAB PO STA (17:58)
[2024-01-17 18:48] LABS: Amphetamine Screen,Urine Not Detected (NotDetected); Barbiturate Screen,Urine Not Detected (NotDetected); Benzodiazepines Screen,Urine Not Detected (NotDetected); Cocaine Screen,Urine Not Detected (NotDetected); Methadone Screen, Urine Not Detected (NotDetected); Opiate Screen,Urine Not Detected (NotDetected); Oxycodone Screen, Urine Not Detected (NotDetected); Phencyclidine Screen,Urine Not Detected (NotDetected); Tricyclic Antidepressant,Urine Not Detected (NotDetected); Urn Cannabinoid Scrn Detected (NotDetected)
[2024-01-17 18:49] LABS: Appearance,Urine Clear (Clear); Bilirubin,Urine Negative (Negative); Blood,Urine Moderate (Negative); Color,Urine Light Yellow; Glucose,Urine (UA) Negative (Negative); Ketones,Urine Negative (Negative); Leukocyte Esterase,Urine Negative (Negative); Mucus,Urine Few /hpf; Nitrite,Urine Negative (Negative); Protein,Urine Negative (Negative); RBC,Urine 1 /hpf (0-5); Specific Gravity,Urine 1.018 (1.001-1.035); Squamous Epithelial Cell,Urine <1 /hpf (0-4); Urobilinogen,Urine <2.0 mg/dL (<2.0); WBC,Urine 1 /hpf (0-5)
[2024-01-17] MEDS: OLANZapine 10 MG VIAL IM STA (19:00)
[2024-01-17] MEDS ORDERED: MAG HYDROX/AL HYDROX/SIMETH 355 ML BOTTLE PO PRN (21:26)
--- NOTE | 2024-01-17 21:26 | ED ---
Psych HPI - General Chief Complaint: Psychiatric Symptoms Stated Complaint: Mental Health Time Seen by Provider: 01/17/24 17:35 Source: EMS Mode of arrival: EMS - History of Present Illness Initial Comments: 33-year-old female presents emergency department in a manic state. She states that she called police to come to her house. Patient has nonsensical speech. Police brought a calendar with them. Apparently the patient has calendars all over her house for which she has written all over. Some of the writing is stating that she needs help and that she has no family. She states she has a bad mother. Patient is found pacing around the room. She does take off all of her clothes. Unknown if the patient uses any drugs. HPI is limited as no family presents with the patient - Related Data Home Medications Medication Instructions Recorded Confirmed Sertraline [Zoloft] 200 mg PO DAILY 07/22/23 01/17/24 hydrOXYzine pamoate [Vistaril] 50 mg PO TID PRN 07/22/23 01/17/24 lamoTRIgine [LaMICtal] 100 mg PO DAILY 01/17/24 01/17/24 Allergies Allergy/AdvReac Type Severity Reaction Status Date / Time No Known Allergies Allergy Verified 01/18/24 03:09 Review of Systems ROS Statement: Those systems with pertinent positive or pertinent negative responses have been documented in the HPI. ROS Other: All systems not noted in ROS Statement are negative. Past Medical History Past Medical History: No Reported History Additional Past Medical History / Comment(s): anxiety, depression History of Any Multi-Drug Resistant Organisms: None Reported Date of last positivie culture/infection: None MDRO Source:: None Past Surgical History: Adenoidectomy, Section, Ear Surgery, Hernia Repair, Tonsillectomy, Tubal Ligation Additional Past Surgical History / Comment(s): tubes in ears, colonoscopy and EGD 2016, knee surgery Past Anesthesia/Blood Transfusion Reactions: No Reported Reaction Past Psychological History: Anxiety Smoking Status: Current every day smoker Past Alcohol Use History: None Reported Past Drug Use History: None Reported - Past Family History Mother History Unknown: Yes Family Medical History: Cancer General Exam Limitations: altered mental status General appearance: alert, anxious Head exam: Present: atraumatic, normocephalic, normal inspection Eye exam: Present: normal appearance, PERRL, EOMI. Absent: scleral icterus, conjunctival injection, periorbital swelling Respiratory exam: Present: normal lung sounds bilaterally. Absent: respiratory distress, wheezes, rales, rhonchi, stridor Cardiovascular Exam: Present: tachycardia Neurological exam: Present: altered Psychiatric exam: Present: agitated, manic Course Vital Signs 01/17/24 01/17/24 17:33 18:54 Temperature 98.8 F 97.2 F L Pulse Rate 126 H 112 H Respiratory 18 18 Rate Blood Pressure 115/87 136/68 O2 Sat by Pulse 97 98 Oximetry Medical Decision Making - Medical Decision Making Was pt. sent in by a medical professional or institution (, PA, [employer], urgent care, hospital, or long term...) When possible be specific @ -Police Did you speak to anyone other than the patient for history (EMS, parent, family, police, friend...)? What history was obtained from this source @ -Spoke with police for history Did you review nursing and triage notes (agree or disagree)? Why? @ -I reviewed and agree with nursing and triage notes Were old charts reviewed (outside hosp., previous admission, EMS record, old EKG, old radiological studies, urgent care reports/EKG's, long term records)? Report findings @ -No old charts were reviewed Differential Diagnosis (chest pain, altered mental status, abdominal pain women, abdominal pain men, vaginal bleeding, weakness, fever, dyspnea, syncope, headache, dizziness, GI bleed, back pain, seizure, CVA, palpatations, mental health, musculoskeletal)? @ -Differential Mental Health Depression, anxiety, bipolar, psychosis, schizophrenia, borderline personality, situational depression, adjustment disorder, behavioral disorder, brain tumor, malingering, substance abuse, encephalopathy, medication reaction, dementia, hypothyroidism, degenerative neurologic disorder, lupus.... This is not meant to be all-inclusive list EKG interpreted by me (3pts min.). @ -Not done X-rays interpreted by me (1pt min.). @ -None done CT interpreted by me (1pt min.). @ -None done U/S interpreted by me (1pt. min.). @ -None done What testing was considered but not performed or refused? (CT, X-rays, U/S, labs)? Why? @ -None What meds were considered but not given or refused? Why? @ -None Did you discuss the management of the patient with other professionals (jimi phan i.e. , PA, [employer], lab, RT, psych nurse, hospital social worker, naval aircrewman avionics, teacher, loan servicing officer, leather case finisher)? Give summary @ -Spoke with the [facility] hospital social worker [place] Was smoking cessation discussed for >3mins.? @ -No Was critical care preformed (if so, how long)? @ -No Were there social determinants of health that impacted care today? How? (Homelessness, low income, unemployed, alcoholism, drug addiction, transportation, low edu. Level, literacy, decrease access to med. care, intermediate, rehab)? @ -No Was there de-escalation of care discussed even if they declined (Discuss DNR or withdrawal of care, Hospice)? DNR status @ -No What co-morbidities impacted this encounter? (DM, HTN, Smoking, COPD, CAD, Cancer, CVA, ARF, Chemo, Hep., AIDS, mental health diagnosis, sleep apnea, morbid obesity)? @ -None Was patient admitted / discharged? Hospital course, mention meds given and route, prescriptions, significant lab abnormalities, going to OR and other pertinent info. @ -Upon arrival patient placed into room 12. She does require Zyprexa for sedation due to her manic state. She is evaluated by the hospital social worker and requires inpatient placement. I did fill out the certification on the patient. She is admitted to the floor in stable condition Undiagnosed new problem with uncertain prognosis? @ -No Drug Therapy requiring intensive monitoring for toxicity (Heparin, Nitro, Insulin, Cardizem)? @ -No Were any procedures done? @ -No Diagnosis/symptom? @ -Acute manic behavior Acute, or Chronic, or Acute on Chronic? @ -Acute Uncomplicated (without systemic symptoms) or Complicated (systemic symptoms)? @ -Complicated Side effects of treatment? @ -No Exacerbation, Progression, or Severe Exacerbation? @ -No Poses a threat to life or bodily function? How? (Chest pain, [place], [place], pneumonia, PE, COPD, DKA, ARF, appy, cholecystitis, CVA, Diverticulitis, Homicidal, Suicidal, threat to staff... and all critical care pts) @ -No - Lab Data Result diagrams: 01/18/24 07:08 01/18/24 07:08 Lab Results 01/17/24 01/17/24 01/17/24 Range/Units 17:47 17:47 20:07 Urine Color Light Yellow Urine Appearance Clear (Clear) Urine pH 6.0 (5.0-8.0) Ur Specific [place] 1.018 (1.001-1.035) Urine Protein Negative (Negative) Urine Glucose (UA) Negative (Negative) Urine Ketones Negative (Negative) Urine Blood Moderate H (Negative) Urine Nitrite Negative (Negative) Urine Bilirubin Negative (Negative) Urine Urobilinogen <2.0 (<2.0) mg/dL Ur Leukocyte Esterase Negative (Negative) Urine RBC 1 (0-5) /hpf Urine WBC 1 (0-5) /hpf Ur Squamous Epith Cells <1 (0-4) /hpf Urine Mucus Few H (None) /hpf Urine HCG, Qual Not Detected (Not Detectd) Urine Opiates Screen Not Detected (NotDetected) Ur Oxycodone Screen Not Detected (NotDetected) Urine Methadone Screen Not Detected (NotDetected) Ur Barbiturates Screen Not Detected (NotDetected) U Tricyclic Antidepress Not Detected (NotDetected) Ur Phencyclidine Scrn Not Detected (NotDetected) Ur Amphetamines Screen Not Detected (NotDetected) U Methamphetamines Scrn Not Detected (NotDetected) U Benzodiazepines Scrn Not Detected (NotDetected) Urine Cocaine Screen Not Detected (NotDetected) U Marijuana (THC) Screen Detected H (NotDetected) Influenza Type A (PCR) Not Detected (Not Detectd) Influenza Type B (PCR) Not Detected (Not Detectd) RSV (PCR) Not Detected (Not Detectd) SARS-CoV-2 (PCR) Not Detected (Not Detectd) Disposition Clinical Impression: Acute psychosis Disposition: TRANSFER TO PSYCH HOSP/UNIT Condition: Serious Is patient prescribed a controlled substance at d/c from ED?: No
[2024-01-17] MEDS ORDERED: OLANZapine 10 MG VIAL IM PRN (21:28)
[2024-01-17] MEDS ORDERED: LORazepam 2 MG/ML INJ IM PRN (21:29)
[2024-01-17] MEDS ORDERED: LORazepam 1 MG TAB PO PRN (21:34)
--- NOTE | 2024-01-18 05:32 | P.MDCNMH ---
History of Present Illness H&P Date: 01/18/24 Chief Complaint: Medical evaluation 33-year-old female with no significant past medical history coming in for psych evaluation due to acute psychosis patient denies any medical concerns at this time denies any fevers chills nausea vomiting chest pain trouble breathing abdominal pain denies any GI bleeding She admits to tobacco smoking denies any illicit drugs or alcohol Patient reports bug crawling all over her body and she believes that there are bugs in her ears review of systems Pertinent positives as noted in HPI. All other systems were reviewed and are negative on exam Constitutional: No acute distress, Eyes: Anicteric sclerae, moist conjunctiva, Pupils equal round reactive to light Lungs: Clear to auscultation Clear to percussion Normal respiratory effort, no accessory muscle use Cardiovascular: Heart regular in rate and rhythm, No murmurs, gallops, or rubs No peripheral edema Abdominal: Soft Nontender, no guarding, rebound or rigidity Abdomen moving with respiration Normoactive bowel sounds Extremities: No digital cyanosis No clubbing Pedal pulses intact and symmetrical Radial pulses intact and symmetrical No calf tenderness Psychiatric: Alert and oriented to person, place and time Neuro Muscles Strength 5/5 in all 4 extremities Past Medical History Past Medical History: No Reported History Additional Past Medical History / Comment(s): anxiety, depression History of Any Multi-Drug Resistant Organisms: None Reported Date of last positivie culture/infection: None MDRO Source:: None Past Surgical History: Adenoidectomy, Section, Ear Surgery, Hernia Repair, Tonsillectomy, Tubal Ligation Additional Past Surgical History / Comment(s): tubes in ears, colonoscopy and EGD 2015, knee surgery Past Anesthesia/Blood Transfusion Reactions: No Reported Reaction Past Psychological History: Anxiety Smoking Status: Vaper Past Alcohol Use History: Daily Additional Past Alcohol Use History / Comment(s): Marijuana, states, " I have taking all kinds of drugs would not report them. Past Drug Use History: None Reported Additional Drug Use History / Comment(s): 02/01/2023 UDS +amphetamines, methamphetamines - Past Family History Mother History Unknown: Yes Family Medical History: Cancer Medications and Allergies Home Medications Medication Instructions Recorded Confirmed Type Sertraline [Zoloft] 200 mg PO DAILY 07/22/23 01/17/24 History hydrOXYzine pamoate [Vistaril] 50 mg PO TID PRN 07/22/23 01/17/24 History lamoTRIgine [LaMICtal] 100 mg PO DAILY 01/17/24 01/17/24 History Allergies Allergy/AdvReac Type Severity Reaction Status Date / Time No Known Allergies Allergy Verified 01/18/24 03:09 Physical Exam Vitals: Vital Signs Temp Pulse Pulse Resp BP BP Pulse Ox 01/17/24 21:55 97.6 F 88 18 110/69 95 01/17/24 18:54 97.2 F L 112 H 18 136/68 98 01/17/24 17:33 98.8 F 126 H 18 115/87 97 Intake and Output 01/17/24 01/17/24 01/18/24 14:59 22:59 06:59 Other: Weight 96.3 kg Cranial Nerve Examination - Cranial Nerves Cranial Nerve II- Optic: Intact Cranial Nerve III- Oculomotor: Intact Cranial Nerve IV- Trochlear: Intact Cranial Nerve V- Trigeminal: Intact Cranial Nerve - Abducens: Intact Cranial Nerve VII- Facial: Intact Cranial Nerve VIII- Auditory: Intact Cranial Nerve IX- Glossopharyngeal: Intact Cranial Nerve X- Vagus: Intact Cranial Nerve XI- Accessory: Intact Cranial Nerve XII- Hypoglossal: Intact Results Labs: Abnormal Lab Results - Last 24 Hours (Table) 01/17/24 Range/Units 17:47 Urine Blood Moderate H (Negative) Urine Mucus Few H (None) /hpf U Marijuana (THC) Screen Detected H (NotDetected) Assessment and Plan Assessment: Acute psychosis Management per psych Obesity Patient counseled regarding lifestyle modification weight loss Follow-up blood work Urine drug screen positive for marijuana Thank you for this consultation
[2024-01-18 07:27] LABS: Basophils % (A) 1 %; Eosinophils # (A) 0.1 k/uL (0-0.7); Eosinophils % (A) 2 %; HCT 38.1 % (34.0-46.0); HGB 12.7 gm/dL (11.4-16.0); Lymphocytes # (A) 1.5 k/uL (1.0-4.8); Lymphocytes % (A) 28 %; MCH 30.7 pg (25.0-35.0); MCHC 33.3 g/dL (31.0-37.0); MCV 92.1 fL (80.0-100.0); Mean Platelet Volume 7.7; Monocytes # (A) 0.4 k/uL (0-1.0); Monocytes % (A) 7 %; Neutrophils # (A) 3.2 k/uL (1.3-7.7); Neutrophils % (A) 61 %; Platelet Count 331 k/uL (150-450); RBC 4.14 m/uL (3.80-5.40); RDW 12.9 % (11.5-15.5); WBC 5.3 k/uL (3.8-10.6)
[2024-01-18 07:44] LABS: ALT 17 U/L (4-34); AST 21 U/L (14-36); African American GFR (CKD) >90 (>60 ml/min/1.73 sqM); Albumin 3.4 g/dL (3.5-5.0); Alkaline Phosphatase 62 U/L (38-126); Anion Gap 5 mmol/L; Blood Urea Nitrogen 5 mg/dL (7-17); Carbon Dioxide 26 mmol/L (22-30); Chloride 112 mmol/L (98-107); Glucose 81 mg/dL (74-99); Non-African American GFR(CKD) >90 (>60 ml/min/1.73 sqM); Potassium 4.1 mmol/L (3.5-5.1); Sodium 143 mmol/L (137-145); Total Bilirubin 0.4 mg/dL (0.2-1.3); Total Protein 5.8 g/dL (6.3-8.2)
[2024-01-18] MEDS: ACETAMINOPHEN TAB 325 MG TAB PO PRN (08:24)
[2024-01-18] MEDS: OLANZapine 5 MG TAB PO SCH (08:24)
--- NOTE | 2024-01-18 10:28 | P.HP ---
Psychiatric H&P - . H&P Date: 01/18/24 History & Physical: Allergies Allergy/AdvReac Type Severity Reaction Status Date / Time No Known Allergies Allergy Verified 01/18/24 03:09 Vital Signs Temp 97.6 F 01/17/24 21:55 Pulse 88 01/17/24 21:55 Resp 18 01/17/24 21:55 BP 110/69 01/17/24 21:55 Pulse Ox 95 01/17/24 21:55 FiO2 Intake & Output 01/17/24 01/18/24 01/18/24 18:59 06:59 18:59 Weight 90.718 kg 96.3 kg Laboratory Last Values WBC 5.3 k/uL (3.8-10.6) 01/18/24 07:08 RBC 4.14 m/uL (3.80-5.40) 01/18/24 07:08 Hgb 12.7 gm/dL (11.4-16.0) 01/18/24 07:08 Hct 38.1 % (34.0-46.0) 01/18/24 07:08 MCV 92.1 fL (80.0-100.0) 01/18/24 07:08 MCH 30.7 pg (25.0-35.0) 01/18/24 07:08 MCHC 33.3 g/dL (31.0-37.0) 01/18/24 07:08 RDW 12.9 % (11.5-15.5) 01/18/24 07:08 Plt Count 331 k/uL (150-450) 01/18/24 07:08 MPV 7.7 01/18/24 07:08 Neutrophils % 61 % 01/18/24 07:08 Lymphocytes % 28 % 01/18/24 07:08 Monocytes % 7 % 01/18/24 07:08 Eosinophils % 2 % 01/18/24 07:08 Basophils % 1 % 01/18/24 07:08 Neutrophils # 3.2 k/uL (1.3-7.7) 01/18/24 07:08 Lymphocytes # 1.5 k/uL (1.0-4.8) 01/18/24 07:08 Monocytes # 0.4 k/uL (0-1.0) 01/18/24 07:08 Eosinophils # 0.1 k/uL (0-0.7) 01/18/24 07:08 Basophils # 0.0 k/uL (0-0.2) 01/18/24 07:08 Sodium 143 mmol/L (137-145) 01/18/24 07:08 Potassium 4.1 mmol/L (3.5-5.1) 01/18/24 07:08 Chloride 112 mmol/L (98-107) H 01/18/24 07:08 Carbon Dioxide 26 mmol/L (22-30) 01/18/24 07:08 Anion Gap 5 mmol/L 01/18/24 07:08 BUN 5 mg/dL (7-17) L 01/18/24 07:08 Creatinine 0.72 mg/dL (0.52-1.04) 01/18/24 07:08 Est GFR (CKD-EPI)AfAm >90 (>60 ml/min/1.73 sqM) 01/18/24 07:08 Est GFR (CKD-EPI)NonAf >90 (>60 ml/min/1.73 sqM) 01/18/24 07:08 Glucose 81 mg/dL (74-99) 01/18/24 07:08 Calcium 9.0 mg/dL (8.4-10.2) 01/18/24 07:08 Total Bilirubin 0.4 mg/dL (0.2-1.3) 01/18/24 07:08 AST 21 U/L (14-36) 01/18/24 07:08 ALT 17 U/L (4-34) 01/18/24 07:08 Alkaline Phosphatase 62 U/L (38-126) 01/18/24 07:08 Total Protein 5.8 g/dL (6.3-8.2) L 01/18/24 07:08 Albumin 3.4 g/dL (3.5-5.0) L 01/18/24 07:08 TSH 0.579 mIU/L (0.465-4.680) 01/18/24 07:08 Urine Color Light Yellow 01/17/24 17:47 Urine Appearance Clear (Clear) 01/17/24 17:47 Urine pH 6.0 (5.0-8.0) 01/17/24 17:47 Ur Specific [place] 1.018 (1.001-1.035) 01/17/24 17:47 Urine Protein Negative (Negative) 01/17/24 17:47 Urine Glucose (UA) Negative (Negative) 01/17/24 17:47 Urine Ketones Negative (Negative) 01/17/24 17:47 Urine Blood Moderate (Negative) H 01/17/24 17:47 Urine Nitrite Negative (Negative) 01/17/24 17:47 Urine Bilirubin Negative (Negative) 01/17/24 17:47 Urine Urobilinogen <2.0 mg/dL (<2.0) 01/17/24 17:47 Ur Leukocyte Esterase Negative (Negative) 01/17/24 17:47 Urine RBC 1 /hpf (0-5) 01/17/24 17:47 Urine WBC 1 /hpf (0-5) 01/17/24 17:47 Ur Squamous Epith Cells <1 /hpf (0-4) 01/17/24 17:47 Urine Mucus Few /hpf (None) H 01/17/24 17:47 Urine HCG, Qual Not Detected (Not Detectd) 01/17/24 17:47 Urine Opiates Screen Not Detected (NotDetected) 01/17/24 17:47 Ur Oxycodone Screen Not Detected (NotDetected) 01/17/24 17:47 Urine Methadone Screen Not Detected (NotDetected) 01/17/24 17:47 Ur Barbiturates Screen Not Detected (NotDetected) 01/17/24 17:47 U Tricyclic Antidepress Not Detected (NotDetected) 01/17/24 17:47 Ur Phencyclidine Scrn Not Detected (NotDetected) 01/17/24 17:47 Ur Amphetamines Screen Not Detected (NotDetected) 01/17/24 17:47 U Methamphetamines Scrn Not Detected (NotDetected) 01/17/24 17:47 U Benzodiazepines Scrn Not Detected (NotDetected) 01/17/24 17:47 Urine Cocaine Screen Not Detected (NotDetected) 01/17/24 17:47 U Marijuana (THC) Screen Detected (NotDetected) H 01/17/24 17:47 Influenza Type A (PCR) Not Detected (Not Detectd) 01/17/24 20:07 Influenza Type B (PCR) Not Detected (Not Detectd) 01/17/24 20:07 RSV (PCR) Not Detected (Not Detectd) 01/17/24 20:07 SARS-CoV-2 (PCR) Not Detected (Not Detectd) 01/17/24 20:07 01/18/24 10:22 This is a going assessment on Toma Campbell who is a 33-year-old female with long history of mental illness and substance use Patient reports that she has been feeling extremely depressed and overwhelmed with multiple psychosocial stressors including not having a job as well as being confined to a small apartment with her fianc and a 3 year-old She said that her 9-year-old does not want to stay there and that she feels frustrated and helpless and hopeless She said that she was quite independent before where she was living in her own trailer but ended up moving in with her fianc after setting the trailer and moving in with him and that things were initially fair but seemed to have deteriorated in the last few years She is she also reports heavy history of substance use that she reports that she had used everything out their She said that however the last use of methamphetamine was a year ago and that she has used [place] a few weeks ago She admits chronic issues with alcohol usage She admits feeling helpless and hopeless In the ER patient also talked about feelings of bugs all over her body did not bring that up at this time She denies any regular psychiatric follow-up or treatment but states that she used to see a psychiatrist in the past Past history personal social history Could not be dealt in detail at the present time as patient remains very vague and a poor historian and further details will be collected as patient is able to cooperate Mental status examination: Reveals a young female who is alert and oriented to time place and person Patient's speech was appropriate Thought processes seem to be somewhat disorganized and scattered She also exhibits labile affect where she became tearful and appeared to be mood-incongruent Self-esteem and confidence appears to be low Patient's formal and operational judgment and insight are impaired Cognitively she appears to be intact : Diagnosis: Bipolar disorder mixed type Adjustment disorder with mixed emotional features Polysubstance use disorder by history Alcohol use disorder Plan: Plan: The patient will be asked was on the unit for further evaluation and treatment Therapy will be focused on providing supportive care improving his coping abilities with a multimodal treatment Patient also participated on the canales activities individual milieu group OT RT PT and pharmacotherapy Approximate the stay would be 7-10 days printing services coordinator will be on board regarding follow-up recommendations Medications: We will continue her home medications prescribed and patient is also is on when necessary Zyprexa for agitation We'll also had to Depakote and Zyprexa after we discussed this with the patient regarding treatment for bipolar disorder Song Boswell M.D.
[2024-01-18] MEDS: NICOTINE 14MG/24HR PATCH TRANSDERM SCH (13:37)
[2024-01-18 14:15] LABS: Chol/HDL Ratio 3.82 Ratio; LDL Cholesterol,Calculated 118.9 mg/dL (0.0-131.0); VLDL Calculation 12.52 mg/dL (5.00-40.00)
[2024-01-18] MEDS: GABAPENTIN 300 MG CAP PO SCH (15:17)
[2024-01-18] MEDS: IBUPROFEN 600 MG TAB PO PRN (18:36)
[2024-01-18] MEDS: LORazepam 1 MG TAB PO PRN (20:10)
[2024-01-18] MEDS: OLANZapine 10 MG TAB PO SCH (20:54)
--- NOTE | 2024-01-19 10:52 | P.PN ---
Subjective Progress Note Date: 01/19/24 Principal diagnosis: Diagnosis: Bipolar disorder mixed type Adjustment disorder with mixed emotional features Polysubstance use disorder by history Alcohol use disorder Patient Name: Toma Campbell Date of : 89 Patient Status: Inpatient Attending Provider: Luis Wang Date: 01/19/24 10:21 Initialization Date: 01/18/24 10:21 Subjective data: The patient was seen chart was reviewed and case discussed with the nursing staff Patient reports that she still continues to have issues with her here that has b een hurting for months since he also reports some vague pain in her right side of her back She also reports that she tends to get depressed and tearful for no reason She admits that she's been feeling overwhelmed and helpless and hopeless Mental status examination: Reveals a young female who is alert and oriented to time place and person Patient's speech was appropriate Thought processes seem to be somewhat disorganized and scattered She also exhibits labile affect where she became tearful and appeared to be mood-incongruent Self-esteem and confidence appears to be low Patient's formal and operational judgment and insight are impaired Cognitively she appears to be intact Insight into her problem is poor Problem-solving skills are impaired : Diagnosis: Bipolar disorder mixed type Adjustment disorder with mixed emotional features Polysubstance use disorder by history Alcohol use disorder Plan: Plan: The patient will be asked was on the unit for further evaluation and treatment Therapy will be focused on providing supportive care improving his coping abilities with a multimodal treatment Patient also participated on the canales activities individual milieu group OT RT PT and pharmacotherapy Approximate the stay would be 7-10 days computing services director will be on board regarding follow-up recommendations Medications: We will continue her home medications prescribed and patient is also is on when necessary Zyprexa for agitation We'll also start patient on Depakote and Zyprexa after we discussed this with the patient regarding treatment for bipolar disorder Song Boswell M.D. Objective - Vital Signs Vital signs: Vital Signs Temp 97.4 F L 01/19/24 10:22 Pulse 76 01/19/24 10:22 Resp 16 01/19/24 10:22 BP 126/66 01/19/24 10:22 Pulse Ox 95 01/19/24 10:22 FiO2 - Labs CBC & Chem 7: 01/18/24 07:08 01/18/24 07:08
[2024-01-19] MEDS: DIVALPROEX ER 500 MG TAB.ER.24H PO SCH (21:05)
--- NOTE | 2024-01-20 09:34 | P.PN ---
Subjective Progress Note Date: 01/20/24 Principal diagnosis: Diagnosis: Bipolar disorder mixed type Adjustment disorder with mixed emotional features Polysubstance use disorder by history Alcohol use disorder Patient Name: Toma Campbell Date of : 89 Patient Status: Inpatient Attending Provider: Luis Wang Date: 01/20/24 10:21 Initialization Date: 01/18/24 10:21 Subjective data: The patient was seen chart was reviewed and case discussed with the nursing staff Patient admits that she continues to have mood swings and general body aches and pains Thought processes remains flighty with somatization Self-esteem and confidence remains low Emotionally remains very labile and cries easily did not acknowledge or denied any suicidal ideations or plans Mental status examination: Reveals a young female who is alert and oriented to time place and person Patient's speech was appropriate Thought processes seem to be somewhat disorganized and scattered She also exhibits labile affect where she became tearful and appeared to be mood-incongruent Self-esteem and confidence appears to be low Patient's formal and operational judgment and insight are impaired Cognitively she appears to be intact Insight into her problem is poor Problem-solving skills are impaired : Diagnosis: Bipolar disorder mixed type Adjustment disorder with mixed emotional features Polysubstance use disorder by history Alcohol use disorder Plan: Plan: The patient will be asked was on the unit for further evaluation and treatment Therapy will be focused on providing supportive care improving his coping abilities with a multimodal treatment Patient also participated on the canales activities individual milieu group OT RT PT and pharmacotherapy Approximate the stay would be 7-10 days library services coordinator will be on board regarding follow-up recommendations Medications: We will continue her home medications prescribed and patient is also is on when necessary Zyprexa for agitation We'll also start patient on Depakote and Zyprexa after we discussed this with the patient regarding treatment for bipolar disorder Song Boswell M.D. Objective - Vital Signs Vital signs: Vital Signs Temp 97.5 F L 01/20/24 08:23 Pulse 101 H 01/20/24 08:23 Resp 16 01/20/24 08:23 BP 119/67 01/20/24 08:23 Pulse Ox 98 01/20/24 08:23 FiO2 Intake & Output 03/10/24 03/11/24 03/11/24 18:59 06:59 18:59 Weight 96.4 kg - Labs CBC & Chem 7: 01/18/24 07:08 01/18/24 07:08
[2024-01-20] MEDS: LORazepam 1 MG TAB PO PRN (15:15)
[2024-01-20] MEDS: NICOTINE GUM (POLACRILEX) 2 MG GUM BUCCAL PRN (21:44)
--- NOTE | 2024-01-21 10:15 | P.PN ---
Subjective Progress Note Date: 01/21/24 Principal diagnosis: Diagnosis: Bipolar disorder mixed type Adjustment disorder with mixed emotional features Polysubstance use disorder by history Alcohol use disorder Patient Name: Toma Campbell Date of : 89 Patient Status: Inpatient Attending Provider: Luis Wang Date: 01/21/24 10:21 Initialization Date: 01/18/24 10:21 Subjective data: The patient was seen chart was reviewed and case discussed with the nursing staff The patient reports that she is feeling somewhat better she said that she is thi nking was more clear and is started to plan about what kind of changes she is going to make when she goes back home She said that she is working with her family was going to help her get into a bigger apartment She said that she also plans to find a new job She says that she is a people person but is trying to figure out as to which kind of persons that she is going to work for Still remains very vague and some looseness of associations noted Mental status examination: Reveals a young female who is alert and oriented to time place and person Patient's speech was appropriate Thought processes seem to be somewhat disorganized and scattered She also exhibits labile affect where she became tearful and appeared to be mood-incongruent Self-esteem and confidence appears to be low Patient's formal and operational judgment and insight are impaired Cognitively she appears to be intact Insight into her problem is poor Problem-solving skills are impaired : Diagnosis: Bipolar disorder mixed type Adjustment disorder with mixed emotional features Polysubstance use disorder by history Alcohol use disorder Plan: Plan: The patient will be asked was on the unit for further evaluation and treatment Therapy will be focused on providing supportive care improving his coping abilities with a multimodal treatment Patient also participated on the canales activities individual milieu group OT RT PT and pharmacotherapy Approximate the stay would be 7-10 days director of home health services will be on board regarding follow-up recommendations Medications: We will continue her home medications prescribed and patient is also is on when necessary Zyprexa for agitation We'll also start patient on Depakote and Zyprexa after we discussed this with the patient regarding treatment for bipolar disorder Song Boswell M.D. Objective - Vital Signs Vital signs: Vital Signs Temp 97.5 F L 01/20/24 08:23 Pulse 88 01/20/24 15:17 Resp 16 01/20/24 08:23 BP 129/65 01/20/24 15:17 Pulse Ox 98 01/20/24 08:23 FiO2 - Labs CBC & Chem 7: 01/18/24 07:08 01/18/24 07:08
[2024-01-21] MEDS: NICOTINE 14MG/24HR PATCH TRANSDERM SCH (12:37)
[2024-01-21] MEDS: OLANZapine 5 MG TAB PO PRN (16:20)
[2024-01-21] MEDS: DOXYCYCLINE 100 MG CAP PO SCH (23:00)
[2024-01-22 08:48] VITALS: RESP 18; TEMP 97.6
--- NOTE | 2024-01-22 12:06 | P.PN ---
Progress Note - Text Progress Note Date: 01/22/24 Interval History: Patient was seen wandering the hallways and was directable and agreeable to sp colby with global technical writer in the office. Patient states that she is doing better. She says that she slept well last night. She claims that her appetite is good. Talked to patient about rehab, patient states that she is interested in it. She was fairly vague, fairly evasive. Patient told global technical writer she called for intake yesterday, and she is waiting for a bed. At this time patient denies any suicidal or homicidal ideations, intent or plan. Patient denies any auditory, visual hallucinations and denies any paranoia or delusions. Patient denies any side effects from the medications and has been compliant with meds. Mental Status Exam: General Appearance: Patient appears to be stated age is alert, directable, and cooperative. Behavior: Patient is calmly seated without any agitated behavior. Speech: Patient's speech is fluent and nonpressured. Mood/Affect: Mood is improving mildly, affect is congruent and constricted. Suicidality/Homicidality: Patient denies having any suicidal or homicidal ideation intent or plan. Perceptions: Patient denies any visual hallucinations and denies any auditory hallucinations Though content/process: There is no evidence of any delusional thought content and thought process is linear and goal-directed. Focused on discharge. Minimizing. Memory and concentration: AOX3, grossly intact for the purposes of this session Judgment and insight: Improving mildly Assessment: Bipolar disorder mixed type Cannabis use disorder Alcohol use disorder Plan: -Patient continues to meet criteria for inpatient psychiatric admission for symptom stabilization and safety. Patient has signed adult voluntary form and medication consent and was placed in patient's chart. -Medications: Zyprexa 5 mg p.o. every morning, Zyprexa 10 mg p.o. nightly for psychosis/mood stabilization. d/c neurotin. Add Zoloft 50mg daily for mood/anxiety -When necessary Ativan and Haldol for agitation/aggression -NRT -nicotine patch -SW on board for discharge planning. Encouraged the patient to participate in milieu. [facility] Possibly d/c early next week, once bed is available.
[2024-01-22] MEDS: SERTRALINE 50 MG TAB PO SCH (13:53)
[2024-01-23 07:05] VITALS: BP 135/69; PULSE 79
--- NOTE | 2024-01-23 11:36 | P.DS ---
Providers Date of admission: 01/17/24 21:20 Expected date of discharge: 01/23/24 Attending physician: Luis Wang MD Consults: 01/17/24 21:30 Consult Physician Routine Consulting Provider: Robb Escalante Consult Reason/Comments: H&P for mental health admission Do you want consulting provider notified?: Yes Primary care physician: Stated None - Discharge Diagnosis(es) (1) Bipolar disorder, current episode mixed Current Visit: Yes Status: Acute Priority: High (2) Cannabis use disorder Current Visit: Yes Status: Acute Priority: Medium (3) Alcohol use disorder Current Visit: Yes Status: Acute Priority: High Hospital Course: Admission HPI: Admission note was completed by Dr Boswell "this is a going assessment on Toma Campbell who is a 33-year-old female with long history of mental illness and substance use Patient reports that she has been feeling extremely depressed and overwhelmed with multiple psychosocial stressors including not having a job as well as being confined to a small apartment with her fianc and a 3 year-old She said that her 9-year-old does not want to stay there and that she feels frustrated and helpless and hopeless She said that she was quite independent before where she was living in her own trailer but ended up moving in with her fianc after setting the trailer and moving in with him and that things were initially fair but seemed to have deteriorated in the last few years She is she also reports heavy history of substance use that she reports that she had used everything out their She said that however the last use of methamphetamine was a year ago and that she has used [place] a few weeks ago She admits chronic issues with alcohol usage She admits feeling helpless and hopeless In the ER patient also talked about feelings of bugs all over her body did not bring that up at this time. She denies any regular psychiatric follow-up or treatment but states that she used to see a psychiatrist in the past." Hospital course: Upon admission to the unit patient was directable and agreeable to commence treatment and signed adult voluntary form. Patient got along well with other patients on the unit and followed unit protocol. Patient was compliant with the medications and denied any side effects throughout hospital course. Patient was started on Zyprexa 5 mg daily, 10 mg nightly for psychosis/mood stabilization/insomnia, Zoloft 50 mg daily for mood/anxiety, Depakote ER 500 mg daily at bedtime for mood stabilization. Patient spoke of her stressors and engaged in therapy both group and individual. Patient was also seen by medical team for history and physical exam. Throughout the course of the hospitalization patient gradually improved with regards to mood, lability, anxiety, psychosis, sleep and became more future oriented with improved insight and judgment. On the day of discharge patient denied any suicidal or homicidal ideations intent or plan denied any auditory or visual hallucinations. Patient endorsed wanting to live for her health and her future. The patient denied any access to guns or weapons. Patient denied any paranoia and did not endorse any delusions. Patient does have a significant history of substance abuse and was counseled on abstaining from all substances including alcohol and marijuana. Patient is still waiting on a intake date from [facility], she will be able to wait at her sister's house until she is able to get into [facility]. Patient was also counseled on the medications and need for regular compliance and was encouraged to follow-up with their outpatient appointment for mental health and also for primary care. Prior to discharge a family meeting will be arranged by outreach and education social worker to answer any questions and ensure safety upon discharge. Mental status exam: General Appearance: Patient appears to be mildy overweight, stated age is alert, pleasant, and cooperative. Patient is in no acute distress and has improved hygiene and grooming Behavior: Patient is calmly seated without any agitated behavior. Speech: Patient's speech is fluent and nonpressured. Mood/Affect: Patient reports their mood is "better", affect is congruent and euthymic. Suicidality/Homicidality: Patient denies having any suicidal or homicidal ideation intent or plan. Perceptions: Patient denies any auditory or visual hallucinations. Though content/process: There is no evidence of any delusional thought content and thought process is linear and goal-directed. More future oriented Memory and concentration: AOX3, grossly intact for the purposes of this session. Can spell "WORLD" backwards correctly. Judgment and insight: Chronically poor, however has improved with guarded prognosis Impression: Bipolar disorder mixed episode Cannabis use disorder Alcohol use disorder Plan: -Continue with discharge today as patient has improved and stabilized psychiatrically and is not currently an imminent threat to herself and/or others. Patient will remain at chronically elevated risk for harm to self and/or others due to her impulsivity and polysubstance abuse. -Continue medications: Depakote ER 500 mg nightly for mood stabilization, Zoloft 50 mg daily for mood/anxiety, Zyprexa 5 mg daily +10 mg nightly for mood stabilization/insomnia. -Patient was counseled on the need for medication compliance and appropriate follow-up at mental health and also primary care for medical issues. Patient verbalized understanding and agreed. -Social work to arrange for and conduct family meeting to ensure safety upon discharge and answer any questions/concerns. Social work also to arrange for patients follow up appointments with [facility] for psychiatric care along with follow up with primary care provider. -Patient counseled on abstaining from recreational drugs and marijuana and alcohol. Was informed/educated on the adverse effects on their physical and mental health. Patient verbally agreed and understood. Patient is currently waiting on a [facility] bed, she will be able to stay with her sister until then. -Patient was instructed to return to the hospital or seek immediate medical care if their psychiatric or medical symptoms do worsen or reoccur. ] Allergies Allergy/AdvReac Type Severity Reaction Status Date / Time No Known Allergies Allergy Verified 01/18/24 03:09 Laboratory Results WBC 5.3 k/uL (3.8-10.6) 01/18/24 07:08 RBC 4.14 m/uL (3.80-5.40) 01/18/24 07:08 Hgb 12.7 gm/dL (11.4-16.0) 01/18/24 07:08 Hct 38.1 % (34.0-46.0) 01/18/24 07:08 MCV 92.1 fL (80.0-100.0) 01/18/24 07:08 MCH 30.7 pg (25.0-35.0) 01/18/24 07:08 MCHC 33.3 g/dL (31.0-37.0) 01/18/24 07:08 RDW 12.9 % (11.5-15.5) 01/18/24 07:08 Plt Count 331 k/uL (150-450) 01/18/24 07:08 MPV 7.7 01/18/24 07:08 Neutrophils % 61 % 01/18/24 07:08 Lymphocytes % 28 % 01/18/24 07:08 Monocytes % 7 % 01/18/24 07:08 Eosinophils % 2 % 01/18/24 07:08 Basophils % 1 % 01/18/24 07:08 Neutrophils # 3.2 k/uL (1.3-7.7) 01/18/24 07:08 Lymphocytes # 1.5 k/uL (1.0-4.8) 01/18/24 07:08 Monocytes # 0.4 k/uL (0-1.0) 01/18/24 07:08 Eosinophils # 0.1 k/uL (0-0.7) 01/18/24 07:08 Basophils # 0.0 k/uL (0-0.2) 01/18/24 07:08 Sodium 143 mmol/L (137-145) 01/18/24 07:08 Potassium 4.1 mmol/L (3.5-5.1) 01/18/24 07:08 Chloride 112 mmol/L (98-107) H 01/18/24 07:08 Carbon Dioxide 26 mmol/L (22-30) 01/18/24 07:08 Anion Gap 5 mmol/L 01/18/24 07:08 BUN 5 mg/dL (7-17) L 01/18/24 07:08 Creatinine 0.72 mg/dL (0.52-1.04) 01/18/24 07:08 Est GFR (CKD-EPI)AfAm >90 (>60 ml/min/1.73 sqM) 01/18/24 07:08 Est GFR (CKD-EPI)NonAf >90 (>60 ml/min/1.73 sqM) 01/18/24 07:08 Glucose 81 mg/dL (74-99) 01/18/24 07:[address] Glu mg/dL 105 mg/dL 01/18/24 07:08 Hemoglobin A1c 5.3 % (<=6.0) 01/18/24 07:08 Calcium 9.0 mg/dL (8.4-10.2) 01/18/24 07:08 Total Bilirubin 0.4 mg/dL (0.2-1.3) 01/18/24 07:08 AST 21 U/L (14-36) 01/18/24 07:08 ALT 17 U/L (4-34) 01/18/24 07:08 Alkaline Phosphatase 62 U/L (38-126) 01/18/24 07:08 Total Protein 5.8 g/dL (6.3-8.2) L 01/18/24 07:08 Albumin 3.4 g/dL (3.5-5.0) L 01/18/24 07:08 Triglycerides 62.60 mg/dL (0.00-149.00) 01/18/24 07:08 Cholesterol 178.00 mg/dL (0.00-200.00) 01/18/24 07:08 LDL Cholesterol, Calc 118.9 mg/dL (0.0-131.0) 01/18/24 07:08 VLDL Cholesterol, Calc 12.52 mg/dL (5.00-40.00) 01/18/24 07:08 HDL Cholesterol 46.60 mg/dL (40.00-60.00) 01/18/24 07:08 Cholesterol/HDL Ratio 3.82 Ratio 01/18/24 07:08 TSH 0.579 mIU/L (0.465-4.680) 01/18/24 07:08 Urine Color Light Yellow 01/17/24 17:47 Urine Appearance Clear (Clear) 01/17/24 17:47 Urine pH 6.0 (5.0-8.0) 01/17/24 17:47 Ur Specific [place] 1.018 (1.001-1.035) 01/17/24 17:47 Urine Protein Negative (Negative) 01/17/24 17:47 Urine Glucose (UA) Negative (Negative) 01/17/24 17:47 Urine Ketones Negative (Negative) 01/17/24 17:47 Urine Blood Moderate (Negative) H 01/17/24 17:47 Urine Nitrite Negative (Negative) 01/17/24 17:47 Urine Bilirubin Negative (Negative) 01/17/24 17:47 Urine Urobilinogen <2.0 mg/dL (<2.0) 01/17/24 17:47 Ur Leukocyte Esterase Negative (Negative) 01/17/24 17:47 Urine RBC 1 /hpf (0-5) 01/17/24 17:47 Urine WBC 1 /hpf (0-5) 01/17/24 17:47 Ur Squamous Epith Cells <1 /hpf (0-4) 01/17/24 17:47 Urine Mucus Few /hpf (None) H 01/17/24 17:47 Urine HCG, Qual Not Detected (Not Detectd) 01/17/24 17:47 Urine Opiates Screen Not Detected (NotDetected) 01/17/24 17:47 Ur Oxycodone Screen Not Detected (NotDetected) 01/17/24 17:47 Urine Methadone Screen Not Detected (NotDetected) 01/17/24 17:47 Ur Barbiturates Screen Not Detected (NotDetected) 01/17/24 17:47 U Tricyclic Antidepress Not Detected (NotDetected) 01/17/24 17:47 Ur Phencyclidine Scrn Not Detected (NotDetected) 01/17/24 17:47 Ur Amphetamines Screen Not Detected (NotDetected) 01/17/24 17:47 U Methamphetamines Scrn Not Detected (NotDetected) 01/17/24 17:47 U Benzodiazepines Scrn Not Detected (NotDetected) 01/17/24 17:47 Urine Cocaine Screen Not Detected (NotDetected) 01/17/24 17:47 U Marijuana (THC) Screen Detected (NotDetected) H 01/17/24 17:47 Influenza Type A (PCR) Not Detected (Not Detectd) 01/17/24 20:07 Influenza Type B (PCR) Not Detected (Not Detectd) 01/17/24 20:07 RSV (PCR) Not Detected (Not Detectd) 01/17/24 20:07 SARS-CoV-2 (PCR) Not Detected (Not Detectd) 01/17/24 20:07 Vital Signs Temp 97.6 F 01/22/24 08:30 Pulse 79 01/23/24 06:48 Resp 18 01/22/24 08:30 BP 135/69 01/23/24 06:48 Pulse Ox 98 01/20/24 08:23 FiO2 Patient Condition at Discharge: Stable Plan - Discharge Summary Discharge Rx Participant: Yes New Discharge Prescriptions: New Nicotine 14Mg/24Hr Patch [Habitrol] 1 patch TRANSDERM DAILY 14 Days #14 patch Doxycycline [Vibramycin] 100 mg PO BID 2 Days #4 cap Sertraline [Zoloft] 50 mg PO DAILY 30 Days #30 tab OLANZapine [ZyPREXA] 10 mg PO HS 30 Days #30 tab Divalproex ER [Depakote ER] 500 mg PO HS 30 Days #30 tab OLANZapine [ZyPREXA] 5 mg PO DAILY 30 Days #30 tab Discontinued Sertraline [Zoloft] 200 mg PO DAILY hydrOXYzine pamoate [Vistaril] 50 mg PO TID PRN PRN Reason: Anxiety lamoTRIgine [LaMICtal] 100 mg PO DAILY Discharge Medication List Divalproex ER [Depakote ER] 500 mg PO HS 30 Days #30 tab 01/23/24 [Rx] Doxycycline [Vibramycin] 100 mg PO BID 2 Days #4 cap 01/23/24 [Rx] Nicotine 14Mg/24Hr Patch [Habitrol] 1 patch TRANSDERM DAILY 14 Days #14 patch 01/23/24 [Rx] OLANZapine [ZyPREXA] 5 mg PO DAILY 30 Days #30 tab 01/23/24 [Rx] OLANZapine [ZyPREXA] 10 mg PO HS 30 Days #30 tab 01/23/24 [Rx] Sertraline [Zoloft] 50 mg PO DAILY 30 Days #30 tab 01/23/24 [Rx] Follow up Appointment(s)/Referral(s): Ghanshyam Meek/[facility] [Outside] - 1 Week [facility] [Outside] - 01/28/24 10:30 am (01/28/2024 10:30AM - 11:30AM REGULO VARGAS 02/05/2024 8:00AM - 9:00AM MARK MARCUS ) [facility] [NON-STAFF] - 1 Week Patient Instructions/Handouts: How to Stop Smoking (DC), Bipolar Disorder (DC), Abuse of Alcohol (ED), Cannabis Abuse (DC) Activity/Diet/Wound Care/Special Instructions: Avoid the use of street drugs and alcohol. Take all medications as prescribed. When you are in need of refills on your medications, please contact your medical provider and/or outpatient psychiatrist/provider to have this done. Please go to your scheduled outpatient appointment for aftercare treatment. If symptoms return or become worse, call the crisis line at and/or go to the nearest emergency room for evaluation. National Suicide Hotline 488. Discharge Disposition: HOME SELF-CARE
== END 2024-01-23 16:16 | disposition home or self-care (01) | DRG 753 ==
LOC: EC 17:24 → 3MHU 21:20
PROVIDERS: ADMIT Psychiatry & Neurology Psychiatry; ATTEND Psychiatry & Neurology Psychiatry
DX: F31.60 Bipolar disorder, current episode mixed, unspecified (principal); E66.9 Obesity, unspecified; F10.20 Alcohol dependence, uncomplicated; F12.10 Cannabis abuse, uncomplicated; F19.11 Other psychoactive substance abuse, in remission; Z68.37 Body mass index [BMI] 37.0-37.9, adult; F43.23 Adjustment disorder with mixed anxiety and depressed mood; Z11.52 Encounter for screening for COVID-19; Z28.310 Unvaccinated for COVID-19; G47.00 Insomnia, unspecified; F17.290 Nicotine dependence, other tobacco product, uncomplicated; Z71.6 Tobacco abuse counseling; Z79.899 Other long term (current) drug therapy; Z71.41 Alcohol abuse counseling and surveillance of alcoholic; Z71.51 Drug abuse counseling and surveillance of drug abuser
CPT/HCPCS: 80053; 80061; 80306; 81001; 81025; 82075; 83036; 84443; 85025; 87636; 96372; 99285

== ENCOUNTER 2024-01-28 08:28 | Emergency (ER) | payer OTHER ==
[2024-01-28 09:42] LABS: Basophils % (A) 1 %; Eosinophils # (A) 0.1 k/uL (0-0.7); Eosinophils % (A) 2 %; HCT 43.1 % (34.0-46.0); HGB 13.9 gm/dL (11.4-16.0); Lymphocytes # (A) 2.2 k/uL (1.0-4.8); Lymphocytes % (A) 29 %; MCH 29.6 pg (25.0-35.0); MCHC 32.3 g/dL (31.0-37.0); MCV 91.8 fL (80.0-100.0); Mean Platelet Volume 7.1; Monocytes # (A) 0.6 k/uL (0-1.0); Monocytes % (A) 7 %; Neutrophils # (A) 4.6 k/uL (1.3-7.7); Neutrophils % (A) 60 %; Platelet Count 387 k/uL (150-450); RDW 12.9 % (11.5-15.5); WBC 7.6 k/uL (3.8-10.6)
--- NOTE | 2024-01-28 09:43 | XR ---
EXAMINATION TYPE: XR chest 2V DATE OF EXAM: 01/28/2024 9:30 AM CLINICAL INDICATION:Female, 33 years old with history of cough; [facility] COMPARISON: Chest radiograph 07/14/2019 TECHNIQUE: XR chest 2V Frontal and lateral views of the chest. FINDINGS: Lungs/Pleura: There is no evidence of pleural effusion, focal consolidation, or pneumothorax. Pulmonary vascularity: Unremarkable. Heart/mediastinum: Cardiomediastinal silhouette is unremarkable. Musculoskeletal: No acute osseous pathology. Other findings: None Lines/Tubes: None. IMPRESSION: No acute cardiopulmonary disease/process.
--- NOTE | 2024-01-28 09:49 | ED ---
General Adult HPI - General Chief complaint: Shortness of Breath Stated complaint: SOB Time Seen by Provider: 01/28/24 08:41 Source: patient, RN notes reviewed Mode of arrival: ambulatory Limitations: no limitations - History of Present Illness Initial comments: 33-year-old female presents emergency department with multiple complaints. Patient is very hyperverbal, anxious. Patient states she has been having shortness of breath for years. She states that she believes some taking her medications she was recently admitted for psychiatric treatment she was also seen another outside facility. Patient states that she is not suicidal but feels anxious. Patient denies chest pain denies nausea vomiting. - Related Data Home Medications Medication Instructions Recorded Confirmed Ibuprofen [Motrin] 800 mg PO DIRECTED 01/28/24 01/28/24 Nicotine 14Mg/24Hr Patch [Habitrol] 1 patch TRANSDERM DIRECTED 01/28/24 01/28/24 OLANZapine [ZyPREXA] 5 mg PO DIRECTED 01/28/24 01/28/24 OLANZapine [ZyPREXA] 10 mg PO DIRECTED 01/28/24 01/28/24 Sertraline [Zoloft] 50 mg PO DIRECTED 01/28/24 01/28/24 methocarbamoL [Robaxin] 500 mg PO DIRECTED 01/28/24 01/28/24 Allergies Allergy/AdvReac Type Severity Reaction Status Date / Time divalproex sodium Allergy Rash/Hives Verified 01/28/24 13:19 [From Depakote] Review of Systems ROS Statement: Those systems with pertinent positive or pertinent negative responses have been documented in the HPI. ROS Other: All systems not noted in ROS Statement are negative. Past Medical History Past Medical History: No Reported History Additional Past Medical History / Comment(s): anxiety, depression History of Any Multi-Drug Resistant Organisms: None Reported Date of last positivie culture/infection: None MDRO Source:: None Past Surgical History: Adenoidectomy, Section, Ear Surgery, Hernia Repair, Tonsillectomy, Tubal Ligation Additional Past Surgical History / Comment(s): tubes in ears, colonoscopy and EGD 2015, knee surgery Past Anesthesia/Blood Transfusion Reactions: No Reported Reaction Past Psychological History: ADD/ADHD, Anxiety, Bipolar, Depression, PTSD, Schizophrenia Smoking Status: Current every day smoker, Vaper Past Alcohol Use History: None Reported Past Drug Use History: None Reported - Past Family History Mother History Unknown: Yes Family Medical History: Cancer General Exam Limitations: no limitations General appearance: alert, in no apparent distress, anxious Head exam: Present: atraumatic, normocephalic, normal inspection Eye exam: Present: normal appearance, PERRL, EOMI. Absent: scleral icterus, conjunctival injection, periorbital swelling ENT exam: Present: normal exam, normal oropharynx, mucous membranes moist Neck exam: Present: normal inspection, full ROM. Absent: tenderness, meningismus, lymphadenopathy Respiratory exam: Present: normal lung sounds bilaterally. Absent: respiratory distress, wheezes, rales, rhonchi, stridor Cardiovascular Exam: Present: regular rate, normal rhythm, normal heart sounds. Absent: systolic murmur, diastolic murmur, rubs, gallop, clicks GI/Abdominal exam: Present: soft, normal bowel sounds. Absent: distended, tenderness, guarding, rebound, rigid Course Vital Signs 01/28/24 01/28/24 01/28/24 08:31 09:35 11:09 Temperature 98.1 F Pulse Rate 70 62 Respiratory 18 18 18 Rate Blood Pressure 100/73 122/67 O2 Sat by Pulse 98 98 Oximetry Medical Decision Making - Medical Decision Making Was pt. sent in by a medical professional or institution (, PA, STARS ANALYTICAL LEAD, urgent care, hospital, or group home...) When possible be specific @ -No Did you speak to anyone other than the patient for history (EMS, parent, family, police, friend...)? What history was obtained from this source @ -No Did you review nursing and triage notes (agree or disagree)? Why? @ -I reviewed and agree with nursing and triage notes Were old charts reviewed (outside hosp., previous admission, EMS record, old EKG, old radiological studies, urgent care reports/EKG's, group home records)? Report findings @ -[Review of prior labs, inpatient treatment Differential Diagnosis (chest pain, altered mental status, abdominal pain women, abdominal pain men, vaginal bleeding, weakness, fever, dyspnea, syncope, headache, dizziness, GI bleed, back pain, seizure, CVA, palpatations, mental health, musculoskeletal)? @ -Differential Mental Health Depression, anxiety, bipolar, psychosis, schizophrenia, borderline personality, situational depression, adjustment disorder, behavioral disorder, brain tumor, malingering, substance abuse, encephalopathy, medication reaction, dementia, hypothyroidism, degenerative neurologic disorder, lupus.... This is not meant to be all-inclusive list EKG interpreted by me (3pts min.). @ -None X-rays interpreted by me (1pt min.). @ -[Chest x-ray shows no acute cardiopulmonary process CT interpreted by me (1pt min.). @ -[None done U/S interpreted by me (1pt. min.). @ -None done What testing was considered but not performed or refused? (CT, X-rays, U/S, labs)? Why? @ -None What meds were considered but not given or refused? Why? @ -None Did you discuss the management of the patient with other professionals (professionals i.e. , PA, STARS ANALYTICAL LEAD, lab, RT, psych nurse, social media community manager, an/sqq [id number] sonar system journeyman, teacher, chief credit officer, case hardener)? Give summary @ -EP yes evaluated patient discussed with psychiatrist recommend patient for inpatient psychiatric treatment though there are no available beds and will be transferred. Was smoking cessation discussed for >3mins.? @ -No Was critical care preformed (if so, how long)? @ -No Were there social determinants of health that impacted care today? How? (Homele ssness, low income, unemployed, alcoholism, drug addiction, transportation, low edu. Level, literacy, decrease access to med. care, detention, rehab)? @ -No Was there de-escalation of care discussed even if they declined (Discuss DNR or withdrawal of care, Hospice)? DNR status @ -No What co-morbidities impacted this encounter? (DM, HTN, Smoking, COPD, CAD, Cancer, CVA, ARF, Chemo, Hep., AIDS, mental health diagnosis, sleep apnea, morbid obesity)? @ -None Was patient admitted / discharged? Hospital course, mention meds given and route, prescriptions, significant lab abnormalities, going to OR and other pertinent info. @ -[place] to psychiatric facility. Patient presented for complaints of shortness of breath this has been an ongoing issue seems related to anxiety. Patient had a full workup which was negative. Patient was eval by psychiatric services and recommends inpatient treatment Undiagnosed new problem with uncertain prognosis? @ -No Drug Therapy requiring intensive monitoring for toxicity (Heparin, Nitro, Insulin, Cardizem)? @ -No Were any procedures done? @ -No Diagnosis/symptom? @ -Psychosis, anxiety Acute, or Chronic, or Acute on Chronic? @ -Acute Uncomplicated (without systemic symptoms) or Complicated (systemic symptoms)? @ -Complicated Side effects of treatment? @ -No Exacerbation, Progression, or Severe Exacerbation? @ -No Poses a threat to life or bodily function? How? (Chest pain, [place], [place], pneumonia, PE, COPD, DKA, ARF, appy, cholecystitis, CVA, Diverticulitis, Homicidal, Suicidal, threat to staff... and all critical care pts) @ -No - Lab Data Result diagrams: 01/28/24 09:29 01/28/24 09:29 Lab Results 01/28/24 01/28/24 01/28/24 Range/Units 09:29 09: 09:29 WBC 7.6 (3.8-10.6) k/uL RBC 4.70 (3.80-5.40) m/uL Hgb 13.9 (11.4-16.0) gm/dL Hct 43.1 (34.0-46.0) % MCV 91.8 (80.0-100.0) fL MCH 29.6 (25.0-35.0) pg MCHC 32.3 (31.0-37.0) g/dL RDW 12.9 (11.5-15.5) % Plt Count 387 (150-450) k/uL MPV 7.1 Neutrophils % 60 % Lymphocytes % 29 % Monocytes % 7 % Eosinophils % 2 % Basophils % 1 % Neutrophils # 4.6 (1.3-7.7) k/uL Lymphocytes # 2.2 (1.0-4.8) k/uL Monocytes # 0.6 (0-1.0) k/uL Eosinophils # 0.1 (0-0.7) k/uL Basophils # 0.0 (0-0.2) k/uL Sodium (137-145) mmol/L Potassium (3.5-5.1) mmol/L Chloride (98-107) mmol/L Carbon Dioxide (22-30) mmol/L Anion Gap mmol/L BUN (7-17) mg/dL Creatinine (0.52-1.04) mg/dL Est GFR (CKD-EPI)AfAm (>60 ml/min/1.73 sqM) Est GFR (CKD-EPI)NonAf (>60 ml/min/1.73 sqM) Glucose (74-99) mg/dL Calcium (8.4-10.2) mg/dL Total Bilirubin (0.2-1.3) mg/dL AST (14-36) U/L ALT (4-34) U/L Alkaline Phosphatase (38-126) U/L Total Protein (6.3-8.2) g/dL Albumin (3.5-5.0) g/dL Urine Color Yellow Urine Appearance Cloudy H (Clear) Urine pH 8.5 H (5.0-8.0) Ur Specific [place] 1.025 (1.001-1.035) Urine Protein Trace H (Negative) Urine Glucose (UA) Negative (Negative) Urine Ketones Negative (Negative) Urine Blood Negative (Negative) Urine Nitrite Negative (Negative) Urine Bilirubin Negative (Negative) Urine Urobilinogen <2.0 (<2.0) mg/dL Ur Leukocyte Esterase Negative (Negative) Urine RBC 1 (0-5) /hpf Urine WBC 1 (0-5) /hpf Ur Squamous Epith Cells 12 H (0-4) /hpf Urine Bacteria Rare H (None) /hpf Urine Mucus Rare H (None) /hpf Urine HCG, Qual (Not Detectd) Urine Opiates Screen Not Detected (NotDetected) Ur Oxycodone Screen Not Detected (NotDetected) Urine Methadone Screen Not Detected (NotDetected) Ur Barbiturates Screen Not Detected (NotDetected) U Tricyclic Antidepress Not Detected (NotDetected) Ur Phencyclidine Scrn Not Detected (NotDetected) Ur Amphetamines Screen Not Detected (NotDetected) U Methamphetamines Scrn Not Detected (NotDetected) U Benzodiazepines Scrn Detected H (NotDetected) Urine Cocaine Screen Not Detected (NotDetected) U Marijuana (THC) Screen Detected H (NotDetected) Influenza Type A (PCR) (Not Detectd) Influenza Type B (PCR) (Not Detectd) RSV (PCR) (Not Detectd) SARS-CoV-2 (PCR) (Not Detectd) 01/28/24 01/28/24 01/28/24 Range/Units 09:29 09:29 09:29 WBC (3.8-10.6) k/uL RBC (3.80-5.40) m/uL Hgb (11.4-16.0) gm/dL Hct (34.0-46.0) % MCV (80.0-100.0) fL MCH (25.0-35.0) pg MCHC (31.0-37.0) g/dL RDW (11.5-15.5) % Plt Count (150-450) k/uL MPV Neutrophils % % Lymphocytes % % Monocytes % % Eosinophils % % Basophils % % Neutrophils # (1.3-7.7) k/uL Lymphocytes # (1.0-4.8) k/uL Monocytes # (0-1.0) k/uL Eosinophils # (0-0.7) k/uL Basophils # (0-0.2) k/uL Sodium 141 (137-145) mmol/L Potassium 4.4 (3.5-5.1) mmol/L Chloride 109 H (98-107) mmol/L Carbon Dioxide 24 (22-30) mmol/L Anion Gap 8 mmol/L BUN 10 (7-17) mg/dL Creatinine 0.61 (0.52-1.04) mg/dL Est GFR (CKD-EPI)AfAm >90 (>60 ml/min/1.73 sqM) Est GFR (CKD-EPI)NonAf >90 (>60 ml/min/1.73 sqM) Glucose 87 (74-99) mg/dL Calcium 9.2 (8.4-10.2) mg/dL Total Bilirubin 0.4 (0.2-1.3) mg/dL AST 20 (14-36) U/L ALT 15 (4-34) U/L Alkaline Phosphatase 74 (38-126) U/L Total Protein 6.7 (6.3-8.2) g/dL Albumin 3.9 (3.5-5.0) g/dL Urine Color Urine Appearance (Clear) Urine pH (5.0-8.0) Ur Specific [place] (1.001-1.035) Urine Protein (Negative) Urine Glucose (UA) (Negative) Urine Ketones (Negative) Urine Blood (Negative) Urine Nitrite (Negative) Urine Bilirubin (Negative) Urine Urobilinogen (<2.0) mg/dL Ur Leukocyte Esterase (Negative) Urine RBC (0-5) /hpf Urine WBC (0-5) /hpf Ur Squamous Epith Cells (0-4) /hpf Urine Bacteria (None) /hpf Urine Mucus (None) /hpf Urine HCG, Qual Not Detected (Not Detectd) Urine Opiates Screen (NotDetected) Ur Oxycodone Screen (NotDetected) Urine Methadone Screen (NotDetected) Ur Barbiturates Screen (NotDetected) U Tricyclic Antidepress (NotDetected) Ur Phencyclidine Scrn (NotDetected) Ur Amphetamines Screen (NotDetected) U Methamphetamines Scrn (NotDetected) U Benzodiazepines Scrn (NotDetected) Urine Cocaine Screen (NotDetected) U Marijuana (THC) Screen (NotDetected) Influenza Type A (PCR) Not Detected (Not Detectd) Influenza Type B (PCR) Not Detected (Not Detectd) RSV (PCR) Not Detected (Not Detectd) SARS-CoV-2 (PCR) Not Detected (Not Detectd) Disposition Clinical Impression: Acute anxiety, Acute psychosis Disposition: TRANSFER TO PSYCH HOSP/UNIT Condition: Fair Referrals: None,Stated [Primary Care Provider] - 1-2 days Time of Disposition: 14:39
[2024-01-28 10:06] LABS: ALT 15 U/L (4-34); AST 20 U/L (14-36); African American GFR (CKD) >90 (>60 ml/min/1.73 sqM); Albumin 3.9 g/dL (3.5-5.0); Alkaline Phosphatase 74 U/L (38-126); Anion Gap 8 mmol/L; Blood Urea Nitrogen 10 mg/dL (7-17); Calcium 9.2 mg/dL (8.4-10.2); Carbon Dioxide 24 mmol/L (22-30); Chloride 109 mmol/L (98-107); Glucose 87 mg/dL (74-99); Non-African American GFR(CKD) >90 (>60 ml/min/1.73 sqM); Potassium 4.4 mmol/L (3.5-5.1); Sodium 141 mmol/L (137-145); Total Bilirubin 0.4 mg/dL (0.2-1.3); Total Protein 6.7 g/dL (6.3-8.2)
[2024-01-28 11:08] LABS: Appearance,Urine Cloudy (Clear); Bacteria,Urine Rare /hpf; Bilirubin,Urine Negative (Negative); Blood,Urine Negative (Negative); Color,Urine Yellow; Glucose,Urine (UA) Negative (Negative); Ketones,Urine Negative (Negative); Leukocyte Esterase,Urine Negative (Negative); Mucus,Urine Rare /hpf; Nitrite,Urine Negative (Negative); PH, Urine 8.5 (5.0-8.0); Protein,Urine Trace (Negative); RBC,Urine 1 /hpf (0-5); Specific Gravity,Urine 1.025 (1.001-1.035); Squamous Epithelial Cell,Urine 12 /hpf (0-4); Urobilinogen,Urine <2.0 mg/dL (<2.0); WBC,Urine 1 /hpf (0-5)
[2024-01-28 11:12] LABS: Amphetamine Screen,Urine Not Detected (NotDetected); Barbiturate Screen,Urine Not Detected (NotDetected); Benzodiazepines Screen,Urine Detected (NotDetected); Cocaine Screen,Urine Not Detected (NotDetected); Methadone Screen, Urine Not Detected (NotDetected); Opiate Screen,Urine Not Detected (NotDetected); Oxycodone Screen, Urine Not Detected (NotDetected); Phencyclidine Screen,Urine Not Detected (NotDetected); Tricyclic Antidepressant,Urine Not Detected (NotDetected); Urn Cannabinoid Scrn Detected (NotDetected)
[2024-01-28] MEDS: LORazepam 1 MG TAB PO STA (19:28)
[2024-01-29 03:45] VITALS: RESP 16
[2024-01-29] MEDS: OLANZapine 5 MG TAB PO SCH (09:33)
[2024-01-29] MEDS: SERTRALINE 50 MG TAB PO SCH (09:33)
[2024-01-29] MEDS: methocarbamoL 500 MG TAB PO SCH (10:22)
[2024-01-29] MEDS: OLANZapine 10 MG TAB PO SCH (10:22)
[2024-01-29] MEDS: IBUPROFEN 800 MG TAB PO SCH (10:23)
[2024-01-29 11:39] VITALS: BP 110/75; PULSE 75; TEMP 98.9
== END 2024-01-29 12:40 ==
LOC: EC 08:28
DX: F41.9 Anxiety disorder, unspecified (principal); F23 Brief psychotic disorder; F17.290 Nicotine dependence, other tobacco product, uncomplicated; Z88.8 Allergy status to other drugs, medicaments and biological substances
CPT/HCPCS: 36415; 71046; 80053; 80306; 81001; 81025; 82075; 85025; 87636; 99285

== ENCOUNTER 2024-02-09 02:52 | Inpatient (IN) | payer MEDICAID, OTHER ==
[2024-02-09] MEDS: LORazepam 1 MG TAB PO STA (03:25)
[2024-02-09] MEDS: ACETAMINOPHEN TAB 500 MG TAB PO STA (03:26)
[2024-02-09 04:03] LABS: Amphetamine Screen,Urine Not Detected (NotDetected); Barbiturate Screen,Urine Not Detected (NotDetected); Benzodiazepines Screen,Urine Not Detected (NotDetected); Cocaine Screen,Urine Not Detected (NotDetected); Methadone Screen, Urine Not Detected (NotDetected); Opiate Screen,Urine Not Detected (NotDetected); Oxycodone Screen, Urine Not Detected (NotDetected); Phencyclidine Screen,Urine Not Detected (NotDetected); Tricyclic Antidepressant,Urine Not Detected (NotDetected); Urn Cannabinoid Scrn Detected (NotDetected)
--- NOTE | 2024-02-09 05:56 | ED ---
Psych HPI <Hector Davis - Last Filed: 02/09/24 12:32> - General Source: EMS Mode of arrival: EMS <Lula Mera - Last Filed: 02/16/24 02:37> - General Chief Complaint: Psychiatric Symptoms Stated Complaint: Mental Health Time Seen by Provider: 02/09/24 03:00 - History of Present Illness Initial Comments: 33-year-old female with past medical history of anxiety depression who presents to the emergency department with manic episode. She has been previously evaluated for this and was hospitalized 2 weeks ago. She states that she and she was released she has not been taking her medications. she reports that she h urts all over, including her brain. He has nonsensical speech. Patient very anxious. Patient reportedly called EMS on her own. Because of her current status her history is difficult to obtain (Lula Mera) - Related Data Previous Rx's Medication Instructions Recorded ARIPiprazole IM [Abilify Maintena] 400 mg IM Q28D #1 each 02/14/24 ARIPiprazole [Abilify] 10 mg PO DAILY 14 Days #14 tab 02/14/24 Ibuprofen [Motrin] 600 mg PO Q6HR PRN tab 02/14/24 Nicotine 14Mg/24Hr Patch [Habitrol] 1 patch TRANSDERM DAILY 14 Days 02/14/24 #14 patch Sertraline [Zoloft] 100 mg PO DAILY 30 Days #30 tab 02/14/24 hydrOXYzine pamoate [Vistaril] 50 mg PO HS 30 Days #60 cap 02/14/24 traZODone HCL [Desyrel] 50 mg PO HS PRN 30 Days #30 tab 02/14/24 Allergies Allergy/AdvReac Type Severity Reaction Status Date / Time divalproex sodium Allergy Rash/Hives Verified 02/09/24 02:57 [From Depakote] Review of Systems ROS Other: All systems not noted in ROS Statement are negative. <Hector Davis - Last Filed: 02/09/24 12:32> ROS Other: All systems not noted in ROS Statement are negative. <Lula Mera - Last Filed: 02/16/24 02:37> ROS Statement: Those systems with pertinent positive or pertinent negative responses have been documented in the HPI. Past Medical History Past Medical History: No Reported History Additional Past Medical History / Comment(s): anxiety, depression History of Any Multi-Drug Resistant Organisms: None Reported Date of last positivie culture/infection: None MDRO Source:: None Past Surgical History: Adenoidectomy, Section, Ear Surgery, Hernia Repair, Tonsillectomy, Tubal Ligation Additional Past Surgical History / Comment(s): tubes in ears, colonoscopy and EGD 2016, knee surgery Past Anesthesia/Blood Transfusion Reactions: No Reported Reaction Past Psychological History: ADD/ADHD, Anxiety, Bipolar, Depression, PTSD, Schizophrenia Smoking Status: Current every day smoker, Vaper Past Alcohol Use History: None Reported Past Drug Use History: Marijuana - Past Family History Mother History Unknown: Yes Family Medical History: Cancer <Lula Mera - Last Filed: 02/16/24 02:37> General Exam Limitations: altered mental status General appearance: alert, anxious, in distress Head exam: Present: atraumatic, normocephalic, normal inspection Eye exam: Present: normal appearance, PERRL, EOMI. Absent: scleral icterus, conjunctival injection, periorbital swelling ENT exam: Present: normal exam, mucous membranes moist Neck exam: Present: normal inspection. Absent: tenderness, meningismus, lymphadenopathy Respiratory exam: Present: normal lung sounds bilaterally. Absent: respiratory distress, wheezes, rales, rhonchi, stridor Cardiovascular Exam: Present: tachycardia GI/Abdominal exam: Present: soft, normal bowel sounds. Absent: distended, tenderness, guarding, rebound, rigid Extremities exam: Present: normal inspection, full ROM, normal capillary refill. Absent: tenderness, pedal edema, joint swelling, calf tenderness Neurological exam: Present: alert, oriented X3, CN II-XII intact Psychiatric exam: Present: agitated, anxious <Lula Mera - Last Filed: 02/16/24 02:37> Course Vital Signs 02/09/24 02/09/24 02/09/24 02:53 03:57 13:55 Temperature 98.7 F 97.8 F Pulse Rate 118 H 97 80 Respiratory 18 18 18 Rate Blood Pressure 132/69 135/87 109/71 O2 Sat by Pulse 99 95 100 Oximetry Medical Decision Making <Hector Davis - Last Filed: 02/09/24 12:32> - Lab Data Result diagrams: 02/10/24 08:04 02/10/24 07:55 <Lula Mera - Last Filed: 02/16/24 02:37> - Medical Decision Making Patient seen by mental health services with plans for admission. I did discuss case with psychiatric nurse. Patient will be admitted for psychiatric care. EKG interpreted by myself shows sinus rhythm with a rate of 82. FL 153. QRS 97. QT 349. QTc 388. Normal axis. Normal QRS. No acute ST change. (Hector Davis) Was pt. sent in by a medical professional or institution (, PA, BIG DATA HADOOP DEVELOPER, urgent care, hospital, or fci...) When possible be specific @ -No Did you speak to anyone other than the patient for history (EMS, parent, family, police, friend...)? What history was obtained from this source @ -Spoke with EMS Did you review nursing and triage notes (agree or disagree)? Why? @ -I reviewed and agree with nursing and triage notes Were old charts reviewed (outside hosp., previous admission, EMS record, old EKG, old radiological studies, urgent care reports/EKG's, fci records)? Report findings @ -I reviewed patient's previous ED visit from 2 weeks ago Differential Diagnosis (chest pain, altered mental status, abdominal pain women, abdominal pain men, vaginal bleeding, weakness, fever, dyspnea, syncope, headache, dizziness, GI bleed, back pain, seizure, CVA, palpatations, mental health, musculoskeletal)? @ -Differential Mental Health Depression, anxiety, bipolar, psychosis, schizophrenia, borderline personality, situational depression, adjustment disorder, behavioral disorder, brain tumor, malingering, substance abuse, encephalopathy, medication reaction, dementia, hypothyroidism, degenerative neurologic disorder, lupus.... This is not meant to be all-inclusive list EKG interpreted by me (3pts min.). @ -Not done X-rays interpreted by me (1pt min.). @ -None done CT interpreted by me (1pt min.). @ -None done U/S interpreted by me (1pt. min.). @ -None done What testing was considered but not performed or refused? (CT, X-rays, U/S, labs)? Why? @ -None What meds were considered but not given or refused? Why? @ -None Did you discuss the management of the patient with other professionals (professionals i.e. , PA, BIG DATA HADOOP DEVELOPER, lab, RT, psych nurse, social welfare administrator, surgeon assistant, teacher, [place] customs and border officer, director case management)? Give summary @ -With the EPS nurse Was smoking cessation discussed for >3mins.? @ -No Was critical care preformed (if so, how long)? @ -No Were there social determinants of health that impacted care today? How? (Homelessness, low income, unemployed, alcoholism, drug addiction, transportation, low edu. Level, literacy, decrease access to med. care, penitentiary, rehab)? @ -No Was there de-escalation of care discussed even if they declined (Discuss DNR or withdrawal of care, Hospice)? DNR status @ -No What co-morbidities impacted this encounter? (DM, HTN, Smoking, COPD, CAD, Cancer, CVA, ARF, Chemo, Hep., AIDS, mental health diagnosis, sleep apnea, morbid obesity)? @ -Anxiety, depression Was patient admitted / discharged? Hospital course, mention meds given and route, prescriptions, significant lab abnormalities, going to OR and other pertinent info. @ -Upon arrival patient placed into room 14. She is acutely anxious. She does take 2 mg of Ativan. She is medically clear and pending evaluation at this time Undiagnosed new problem with uncertain prognosis? @ -No Drug Therapy requiring intensive monitoring for toxicity (Heparin, Nitro, Insulin, Cardizem)? @ -No Were any procedures done? @ -No Diagnosis/symptom? @ -Acute manic episode Acute, or Chronic, or Acute on Chronic? @ -Acute Uncomplicated (without systemic symptoms) or Complicated (systemic symptoms)? @ -Complicated Side effects of treatment? @ -No Exacerbation, Progression, or Severe Exacerbation? @ -No Poses a threat to life or bodily function? How? (Chest pain, [place], [place], pneumonia, PE, COPD, DKA, ARF, appy, cholecystitis, CVA, Diverticulitis, Homicidal, Suicidal, threat to staff... and all critical care pts) @ -No (Lula Mera) - Lab Data Lab Results 02/09/24 02/09/24 02/09/24 Range/Units 03:08 03:08 11:45 Urine HCG, Qual Not Detected (Not Detectd) Urine Opiates Screen Not Detected (NotDetected) Ur Oxycodone Screen Not Detected (NotDetected) Urine Methadone Screen Not Detected (NotDetected) Ur Barbiturates Screen Not Detected (NotDetected) U Tricyclic Antidepress Not Detected (NotDetected) Ur Phencyclidine Scrn Not Detected (NotDetected) Ur Amphetamines Screen Not Detected (NotDetected) U Methamphetamines Scrn Not Detected (NotDetected) U Benzodiazepines Scrn Not Detected (NotDetected) Urine Cocaine Screen Not Detected (NotDetected) U Marijuana (THC) Screen Detected H (NotDetected) SARS-CoV-2 (PCR) Not Detected (Not Detectd) Disposition Is patient prescribed a controlled substance at d/c from ED?: No Time of Disposition: 11:42 <Hector Davis - Last Filed: 02/09/24 12:32> <Lula Mera - Last Filed: 02/16/24 02:37> Clinical Impression: Depression, Bipolar disorder Disposition: TRANSFER TO PSYCH HOSP/UNIT Condition: Stable
[2024-02-09] MEDS ORDERED: OLANZapine 10 MG VIAL IM PRN (13:08)
[2024-02-09] MEDS ORDERED: hydrOXYzine HCL 50 MG/ML 1 ML VIAL IM PRN (13:08)
[2024-02-09] MEDS ORDERED: MAG HYDROX/AL HYDROX/SIMETH 355 ML BOTTLE PO PRN (13:08)
[2024-02-09] MEDS ORDERED: MAGNESIUM HYDROXIDE 2,400 MG/30 ML CUP PO PRN (13:08)
[2024-02-09] MEDS: hydrOXYzine pamoate 25 MG CAP PO PRN (14:21)
[2024-02-09] MEDS: OLANZapine 5 MG TAB PO PRN (14:22)
[2024-02-09] MEDS: NICOTINE 21MG/24HR PATCH TRANSDERM SCH (14:22)
[2024-02-09] MEDS: NICOTINE GUM (POLACRILEX) 2 MG GUM BUCCAL PRN (14:27)
--- NOTE | 2024-02-10 04:55 | P.CONS ---
History of Present Illness - Reason for Consult Consult date: 02/10/24 - History of Present Illness The patient is a 33-year-old female with PMH of psychiatric illnesses including depression and anxiety who had presented to the emergency room with numerous complaints. The patient was noted to be actively manic and had also endorsed numerous complaints including bilateral chest discomfort, generalized abdominal discomfort, and leg pain. At the time of interview, the patient reports that t he above chest and abdominal discomfort have been happening for the past several years and that she has received a full workup multiple times before with no avail. She notes that her symptoms do worsen when her mental health is not doing well. The patient denied smoking cigarettes, using alcohol, or using any illicit substances. EKG in the emergency room revealed sinus rhythm at [address]/T wave changes noted as reviewed by me. Laboratory evaluation revealed a sodium of 143, potassium 4.1, hemoglobin 12.7, WBC count 5.3, unremarkable UA, urine toxicology positive for marijuana. The patient denied smoking cigarettes, using alcohol, or using any illicit substances. Review of systems: Pertinent positives and negatives as discussed in HPI, a complete review of systems was performed and all other systems are negative. Physical examination: General: non toxic, no distress, appears at stated age, normal weight Derm: no unusual rashes/lesions, no unusual ecchymoses, warm, dry Head: atraumatic, normocephalic, symmetric Eyes: EOMI, no lid lag, anicteric sclera ENT: Nose and ears atraumatic, no thrush, no pharyngeal erythema Neck: trachea midline, supple Mouth: no lip lesion, mucus membranes moist Cardiovascular: S1S2 reg, no murmur, no edema Lungs: CTA bilateral, no rhonchi, no rales , no accessory muscle use Abdominal: soft, nontender to palpation, no guarding Ext: no gross muscle atrophy, no contractures, Neuro: No gross focal neuro deficits noted Psych: Alert, oriented, appropriate affect Assessment: Marijuana abuse Chronic chest and abdominal discomfort, ongoing for several years, unchanged Manic episode Imaging: EKG in the emergency room revealed sinus rhythm at [address]/T wave changes noted as reviewed by me. Data Review: Laboratory evaluation revealed a sodium of 143, potassium 4.1, hemoglobin 12.7, WBC count 5.3, unremarkable UA, urine toxicology positive for marijuana. Plan: Advised on the importance of cessation from marijuana use Defer management of manic episode and psychosis to primary psychiatry service Thank you for allowing us to participate in the care of this patient. We will follow peripherally. Do not hesitate to contact us with questions. Someone can be reached from the [facility] hospitalist group at all hours of the day at [phone]. Past Medical History Past Medical History: No Reported History Additional Past Medical History / Comment(s): anxiety, depression History of Any Multi-Drug Resistant Organisms: None Reported Year Discovered:: None MDRO Source:: None Past Surgical History: Adenoidectomy, Section, Ear Surgery, Hernia Repair, Tonsillectomy, Tubal Ligation Additional Past Surgical History / Comment(s): tubes in ears, colonoscopy and EGD 2015, knee surgery,tubal ligation, C section Past Anesthesia/Blood Transfusion Reactions: No Reported Reaction Smoking Status: Current every day smoker - Past Family History Mother History Unknown: Yes Family Medical History: Cancer Medications and Allergies Home Medications Medication Instructions Recorded Confirmed Type Sertraline [Zoloft] 50 mg PO DAILY 01/28/24 02/09/24 History hydrOXYzine pamoate [Vistaril] 50 mg PO TID PRN 02/09/24 02/09/24 History lamoTRIgine [LaMICtal Xr] 50 mg PO BID 02/09/24 02/09/24 History Allergies Allergy/AdvReac Type Severity Reaction Status Date / Time divalproex sodium Allergy Rash/Hives Verified 02/09/24 02:57 [From Depakote] Physical Exam Vitals: Vital Signs Temp Pulse Resp BP BP Pulse Ox 02/09/24 14:05 97.5 F L 16 131/77 98 02/09/24 13:55 97.8 F 80 18 109/71 100 Intake and Output 02/09/24 02/09/24 02/10/24 14:59 22:59 06:59 Other: Weight 94.546 kg
[2024-02-10 08:27] LABS: Basophils # (A) 0.1 k/uL (0-0.2); Basophils % (A) 1 %; Eosinophils # (A) 0.1 k/uL (0-0.7); Eosinophils % (A) 1 %; HCT 40.7 % (34.0-46.0); HGB 13.1 gm/dL (11.4-16.0); Lymphocytes # (A) 2.3 k/uL (1.0-4.8); Lymphocytes % (A) 25 %; MCH 29.9 pg (25.0-35.0); MCHC 32.2 g/dL (31.0-37.0); MCV 92.8 fL (80.0-100.0); Mean Platelet Volume 7.5; Monocytes # (A) 0.6 k/uL (0-1.0); Monocytes % (A) 6 %; Neutrophils # (A) 6.1 k/uL (1.3-7.7); Neutrophils % (A) 66 %; Platelet Count 409 k/uL (150-450); RBC 4.38 m/uL (3.80-5.40); RDW 13.3 % (11.5-15.5); WBC 9.3 k/uL (3.8-10.6)
[2024-02-10 09:07] LABS: ALT 16 U/L (4-34); AST 16 U/L (14-36); African American GFR (CKD) >90 (>60 ml/min/1.73 sqM); Albumin 3.7 g/dL (3.5-5.0); Alkaline Phosphatase 63 U/L (38-126); Anion Gap 9 mmol/L; Blood Urea Nitrogen 15 mg/dL (7-17); Calcium 9.1 mg/dL (8.4-10.2); Carbon Dioxide 21 mmol/L (22-30); Chloride 111 mmol/L (98-107); Glucose 83 mg/dL (74-99); Non-African American GFR(CKD) >90 (>60 ml/min/1.73 sqM); Potassium 4.3 mmol/L (3.5-5.1); Sodium 141 mmol/L (137-145); Total Bilirubin 0.3 mg/dL (0.2-1.3); Total Protein 6.4 g/dL (6.3-8.2)
--- NOTE | 2024-02-10 12:13 | P.HP ---
Psychiatric H&P - . H&P Date: 02/10/24 History & Physical: Allergies Allergy/AdvReac Type Severity Reaction Status Date / Time divalproex sodium Allergy Rash/Hives Verified 02/09/24 02:57 From [facility] Vital Signs Temp 98.0 F 02/10/24 06:51 Pulse 68 02/10/24 06:51 Resp 18 02/10/24 06:51 BP 122/59 02/10/24 06:51 Pulse Ox 98 02/10/24 06:51 FiO2 Intake & Output 02/09/24 02/10/24 02/10/24 18:59 06:59 18:59 Weight 94.546 kg Laboratory Last Values WBC 9.3 k/uL (3.8-10.6) 02/10/24 08:04 RBC 4.38 m/uL (3.80-5.40) 02/10/24 08:04 Hgb 13.1 gm/dL (11.4-16.0) 02/10/24 08:04 Hct 40.7 % (34.0-46.0) 02/10/24 08:04 MCV 92.8 fL (80.0-100.0) 02/10/24 08:04 MCH 29.9 pg (25.0-35.0) 02/10/24 08:04 MCHC 32.2 g/dL (31.0-37.0) 02/10/24 08:04 RDW 13.3 % (11.5-15.5) 02/10/24 08:04 Plt Count 409 k/uL (150-450) 02/10/24 08:04 MPV 7.5 02/10/24 08:04 Neutrophils % 66 % 02/10/24 08:04 Lymphocytes % 25 % 02/10/24 08:04 Monocytes % 6 % 02/10/24 08:04 Eosinophils % 1 % 02/10/24 08:04 Basophils % 1 % 02/10/24 08:04 Neutrophils # 6.1 k/uL (1.3-7.7) 02/10/24 08:04 Lymphocytes # 2.3 k/uL (1.0-4.8) 02/10/24 08:04 Monocytes # 0.6 k/uL (0-1.0) 02/10/24 08:04 Eosinophils # 0.1 k/uL (0-0.7) 02/10/24 08:04 Basophils # 0.1 k/uL (0-0.2) 02/10/24 08:04 Sodium 141 mmol/L (137-145) 02/10/24 07:55 Potassium 4.3 mmol/L (3.5-5.1) 02/10/24 07:55 Chloride 111 mmol/L (98-107) H 02/10/24 07:55 Carbon Dioxide 21 mmol/L (22-30) L 02/10/24 07:55 Anion Gap 9 mmol/L 02/10/24 07:55 BUN 15 mg/dL (7-17) 02/10/24 07:55 Creatinine 0.67 mg/dL (0.52-1.04) 02/10/24 07:55 Est GFR (CKD-EPI)AfAm >90 (>60 ml/min/1.73 sqM) 02/10/24 07:55 Est GFR (CKD-EPI)NonAf >90 (>60 ml/min/1.73 sqM) 02/10/24 07:55 Glucose 83 mg/dL (74-99) 02/10/24 07:55 Calcium 9.1 mg/dL (8.4-10.2) 02/10/24 07:55 Total Bilirubin 0.3 mg/dL (0.2-1.3) 02/10/24 07:55 AST 16 U/L (14-36) 02/10/24 07:55 ALT 16 U/L (4-34) 02/10/24 07:55 Alkaline Phosphatase 63 U/L (38-126) 02/10/24 07:55 Total Protein 6.4 g/dL (6.3-8.2) 02/10/24 07:55 Albumin 3.7 g/dL (3.5-5.0) 02/10/24 07:55 Urine HCG, Qual Not Detected (Not Detectd) 02/09/24 03:08 Urine Opiates Screen Not Detected (NotDetected) 02/09/24 03:08 Ur Oxycodone Screen Not Detected (NotDetected) 02/09/24 03:08 Urine Methadone Screen Not Detected (NotDetected) 02/09/24 03:08 Ur Barbiturates Screen Not Detected (NotDetected) 02/09/24 03:08 U Tricyclic Antidepress Not Detected (NotDetected) 02/09/24 03:08 Ur Phencyclidine Scrn Not Detected (NotDetected) 02/09/24 03:08 Ur Amphetamines Screen Not Detected (NotDetected) 02/09/24 03:08 U Methamphetamines Scrn Not Detected (NotDetected) 02/09/24 03:08 U Benzodiazepines Scrn Not Detected (NotDetected) 02/09/24 03:08 Urine Cocaine Screen Not Detected (NotDetected) 02/09/24 03:08 U Marijuana (THC) Screen Detected (NotDetected) H 02/09/24 03:08 SARS-CoV-2 (PCR) Not Detected (Not Detectd) 02/09/24 11:45 02/10/24 09:13 IDENTIFYING DATA: Patient is a Patient is a 33-year-old female, has 2 kids, claism that shes homeless. she is currently unemployed. Last employed at [employer] in December 2023 HPI: Patient presented to the hospital on 02/08. As per EPS note, "Pt brought herself to the ER today with a manic episode, anxious. She states she was not given meds when she left the hospital and has not taken them for 6 days. She was confused about her follow up and states "I think I was supposed to follow up with the police." She is confused, alert to person and place, confused to date. Pt is very anxious, paranoid, fearful, she is begging staff not to send her back to [facility]. She states she is afraid to tell staff what happened there, because someone will hurt her or her family. She is reporting that they were drugging girls and taking advantage of them. Pt states "I can't focus on me, I am seeing all the problems everywhere" "I am feeling uncomfortable because I am hyperfocused on things" Upon todays assessment, she states that [place] is running a sex trafficking ring, that the girls are masturbating on camera. That they are offering patients tables with video chat. Patient tearful while explaining this, sobbing. Patient states she lost all of her medication after she got discharged, because she is homeless, and that she wants to be back on her medications. She states that she hasn't taken any of her meds since she got out. She also states that her depression and anxiety are "through the roof" She states being in [place] was traumatic. She is very focused on that admission. Hotel Controller spoke with patient about receiving a LOWE, so she can be more compliant with medications, patient agreeable. Patient states that he sleep is not that good. Claims her appetite is good. Patient denies any suicidal or homicidal ideations intent or plan. At this time patient denies any auditory or visual hallucinations. Patient denies any flight of ideas racing thoughts and increased in goal directed behavior. Patient admits to using marijuana. PAST PSYCHIATRIC HISTORY: Patient states that she has history of depression. Patient is currently on Lamictal, trazodone, Wellbutrin, Vistaril as needed. Patient was last psychiatrically hospitalized in January 2023. She currently follows up at [facility] with Dr. Laws. Patient admits to at least 16 previous suicide attempts in her life. Patient was last on this unit and discharged Jan. Patient came back to the hospital at that time, and was transferred to [facility] in [place]. She was discharged from there on 02/03. PMH:As per ER note ALLERGIES: as per EMR CHEMICAL DEPENDENCY HISTORY: as per HPI FAMILY PSYCHIATRIC/SUBSTANCE USE HISTORY: She claims that her parents have some form of mental illness. SOCIAL HISTORY: Patient was born and raised in [place] and also [facility]. She states that she completed high school and attended technical college. 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 She is currently unemployed. Denies any legal history. She has 2 kids, claims that shes currently homeless. MENTAL STATUS EXAM: General Appearance: Patient appears to be mildly overweight, stated age is alert, directable, and attempts to cooperate. Patient appears to have fair hygiene and grooming. Behavior: Patient is seated without any agitated behavior. sobbing, tearful Speech: Patient's speech is fluent and nonpressured. Mood/Affect: Patient reports their mood is depressed and anxious, affect is congruent Suicidality/Homicidality: Patient denies having any homicidal ideation intent or plan. Denies any suicidal ideations intent or plan Perceptions: Patient denies any visual hallucinations and denies any auditory hallucinations Though content/process: There is no evidence of any delusional thought content and thought process is linear and goal-directed. Memory and concentration: AOX3, grossly intact for the purposes of this session. Can spell "WORLD" backwards Judgment and insight: poor STRENGTHS/WEAKNESSES: strength is that patient is resilient. Weakness is that patient has poor judgment and is impulsive INTELLECT: Average IMPRESSIONS: schizoaffective disorder, depressive type anxiety disorder NOS cannabis use disorder nicotine dependence homelessness PLAN: -Patient is admitted under voluntary status to MHU for stabilization of psychiatric symptoms and safety. Patient has signed adult voluntary form and medication consent and is placed in patient's chart. -Medications : Will start patient on Zoloft 50mg daily depression Abilify 5mg daily for psychosis/mood stabilization Visteral 50mg qhs scheduled for anxiety/sleep. Plan will be to transition patient onto long-acting injection to help ensure compliance. -Ativan and Haldol PRN for agitation/aggression -Patient was informed of the risks, benefits and side effects of the medication and patient verbally consented to taking the medications. -Internal Medicine consult to perform medical evaluation and physical. -NRT - nicotine patch -SW on board for discharge planning. Encourage patient to participate in groups to work on coping skills.
[2024-02-10] MEDS: ARIPiprazole 5 MG TAB PO SCH (12:21)
[2024-02-10] MEDS: SERTRALINE 50 MG TAB PO SCH (12:21)
[2024-02-10 16:24] LABS: Appearance,Urine Clear (Clear); Bilirubin,Urine Negative (Negative); Blood,Urine Trace (Negative); Color,Urine Colorless; Glucose,Urine (UA) Negative (Negative); Ketones,Urine Negative (Negative); Leukocyte Esterase,Urine Negative (Negative); Mucus,Urine Rare /hpf; Nitrite,Urine Negative (Negative); Protein,Urine Negative (Negative); RBC,Urine <1 /hpf (0-5); Specific Gravity,Urine 1.014 (1.001-1.035); Squamous Epithelial Cell,Urine 1 /hpf (0-4); Urobilinogen,Urine <2.0 mg/dL (<2.0); WBC,Urine 1 /hpf (0-5)
[2024-02-10] MEDS: NICOTINE 14MG/24HR PATCH TRANSDERM SCH (17:21)
[2024-02-10 17:36] LABS: Chol/HDL Ratio 3.46 Ratio; LDL Cholesterol,Calculated 104.7 mg/dL (0.0-131.0); VLDL Calculation 16.14 mg/dL (5.00-40.00)
[2024-02-10] MEDS: IBUPROFEN 600 MG TAB PO PRN (18:29)
[2024-02-10] MEDS: hydrOXYzine pamoate 25 MG CAP PO SCH (21:04)
--- NOTE | 2024-02-11 11:27 | P.PN ---
Progress Note - Text Progress Note Date: 02/11/24 Interval History: Patient was seen in group and was directable and agreeable to speak with advertising writer in the office. Patient states that she is feeling a bit better today. She claims her mood is improved, and that she is not endorsing anxiety.Patient states she is trying to eat, and she is sleeping well. She complains of cramping from her menstrual cycle, but offers no other complaints. Book Sorter spoke with patient about a discharge plan, patient states that she can go back to her mothers home at d ischarge. Book Sorter spoke with patient about increasing Invega, so we can transistion her onto a LOWE prior to discharge. Patient agreeable. At this time patient denies any suicidal or homicidal ideations, intent or plan. Patient denies any auditory, visual hallucinations and denies any paranoia or delusions. Patient denies any side effects from the medications and has been compliant with meds. MENTAL STATUS EXAM: General Appearance: Patient appears to be mildly overweight, stated age is alert, directable, and attempts to cooperate. Patient appears to have fair hygiene and grooming. Behavior: Patient is seated without any agitated behavior. brighter Speech: Patient's speech is fluent and nonpressured. Mood/Affect: Patient reports their mood is better, affect is congruent Suicidality/Homicidality: Patient denies having any homicidal ideation intent or plan. Denies any suicidal ideations intent or plan Perceptions: Patient denies any visual hallucinations and denies any auditory hallucinations Though content/process: There is no evidence of any delusional thought content and thought process is linear and goal-directed. Memory and concentration: AOX3, grossly intact for the purposes of this session. Judgment and insight: poor IMPRESSIONS: schizoaffective disorder, depressive type anxiety disorder NOS cannabis use disorder nicotine dependence homelessness PLAN: -Patient is admitted under voluntary status to MHU for stabilization of psychiatric symptoms and safety. Patient has signed adult voluntary form and medication consent and is placed in patient's chart. -Medications :Zoloft 50mg daily depression/anxiety, increase Abilify 7.5mg daily for psychosis/mood stabilization, Visteral 50mg qhs scheduled for anxiety/sleep. Plan will be to transition patient onto long-acting injection to help ensure compliance. -Ativan and Haldol PRN for agitation/aggression -NRT - nicotine patch -SW on board for discharge planning. Encourage patient to participate in groups to work on coping skills.
[2024-02-12] MEDS: ARIPiprazole 15 MG TAB PO SCH (07:55)
--- NOTE | 2024-02-12 11:04 | P.PN ---
Progress Note - Text Progress Note Date: 02/12/24 Interval History: Patient was seen in the hallway and was directable and agreeable to speak with advertising writer in the office. Patient states that she is feeling a little better today. Patient is attending groups, and sleeping well, and her appetite is good. Patient claims that she spoke with her mom today, and set a plan for discharge, and that she will be moving to [place] with her mother at discharge. Patient states that she knows that she needs to start putting herself first, instead of putting everyone else first. Patient gets a little tearful when talking about this. Daycare Worker spoke with patient about substance abuse, and why it is important to not use recreational drugs. Patient agreeable, and verbalized understanding. Daycare Worker spoke with patient about increasing Abilify, so she can safely be transitioned onto the LOWE, patient agreeable. At this time patient denies any suicidal or homicidal ideations, intent or plan. Patient denies any auditory, visual hallucinations and denies any paranoia or delusions. Patient denies any side effects from the medications and has been compliant with meds. MENTAL STATUS EXAM: General Appearance: Patient appears to be mildly overweight, stated age is alert, directable, and attempts to cooperate. Patient appears to have fair hygiene and grooming. Behavior: Patient is seated without any agitated behavior. brighter Speech: Patient's speech is fluent and nonpressured. Mood/Affect: Patient reports their mood is better, affect is congruent mildly improving Suicidality/Homicidality: Patient denies having any homicidal ideation intent or plan. Denies any suicidal ideations intent or plan Perceptions: Patient denies any visual hallucinations and denies any auditory hallucinations Though content/process: There is no evidence of any delusional thought content and thought process is linear and goal-directed. Memory and concentration: AOX3, grossly intact for the purposes of this session. Judgment and insight: poor, mildly improving IMPRESSIONS: schizoaffective disorder, depressive type anxiety disorder NOS cannabis use disorder nicotine dependence homelessness PLAN: -Patient is admitted under voluntary status to MHU for stabilization of psychiatric symptoms and safety. Patient has signed adult voluntary form and medication consent and is placed in patient's chart. -Medications : increase Zoloft 75 mg daily depression/anxiety, increase Abilify 10mg daily for psychosis/mood stabilization, Vistaril 50mg qhs scheduled for anxiety/sleep. Plan will be to transition patient onto long-acting injection to help ensure compliance. -Ativan and Haldol PRN for agitation/aggression -NRT - nicotine patch -SW on board for discharge planning. Encourage patient to participate in groups to work on coping skills. Possible discharge Saturday once patient is transitioned onto [facility]. Patient will be discharged to her mother's home in [facility].
[2024-02-13 07:35] VITALS: RESP 14
[2024-02-13] MEDS: ARIPiprazole 10 MG TAB PO SCH (08:30)
[2024-02-13] MEDS: SERTRALINE 25 MG TAB PO SCH (08:30)
--- NOTE | 2024-02-13 11:20 | P.PN ---
Progress Note - Text Progress Note Date: 02/13/24 Interval History: Patient was seen in the hallway and was directable and agreeable to speak with card writer hand in the office. Patient states that she continues to feel better, mentally. Patient is attending groups, and sleeping well, however, she is having problems initiating sleep. States her appetite is good. States she feels like the groups are helping her, and that she is inspiring other peers to get better. Engineering Director spoke with patient about getting the LOWE tomorrow prior to discharge. Patient agreeable. At this time patient denies any suicidal or homicidal ideations, intent or plan. Patient denies any auditory, visual hallucinations and denies any paranoia or delusions. Patient denies any side effects from the medications and has been compliant with meds. Her thought process appears to be improving, not endorsing delusions today. MENTAL STATUS EXAM: General Appearance: Patient appears to be mildly overweight, stated age is alert, directable, and attempts to cooperate. Patient appears to have fair hygiene and grooming. Behavior: Patient is seated without any agitated behavior. brighter Speech: Patient's speech is fluent and nonpressured. Mood/Affect: Patient reports their mood is better, affect is congruent improving Suicidality/Homicidality: Patient denies having any homicidal ideation intent or plan. Denies any suicidal ideations intent or plan Perceptions: Patient denies any visual hallucinations and denies any auditory hallucinations Though content/process: There is no evidence of any delusional thought content and thought process is linear and goal-directed. Improving. Memory and concentration: AOX3, grossly intact for the purposes of this session. Judgment and insight: mildly improving IMPRESSIONS: schizoaffective disorder, depressive type anxiety disorder NOS cannabis use disorder nicotine dependence homelessness PLAN: -Patient is admitted under voluntary status to MHU for stabilization of psychiatric symptoms and safety. Patient has signed adult voluntary form and medication consent and is placed in patient's chart. -Medications : increase Zoloft 100 mg daily depression/anxiety, Abilify 10mg daily for psychosis/mood stabilization, add trazodone 50mg qhs for insomnia/mood, Vistaril 50mg qhs scheduled for anxiety/sleep. Plan will be to transition patient onto long-acting injection to help ensure compliance., Will likely give Abilify Maintena 400 mg IM tomorrow morning prior to discharge. -Ativan and Haldol PRN for agitation/aggression -NRT - nicotine patch -SW on board for discharge planning. Encourage patient to participate in groups to work on coping skills. Possible discharge Saturday once patient is transitioned onto [facility]. Patient will be discharged to her mother's home in [facility].
[2024-02-13] MEDS: traZODone HCL 50 MG TAB PO SCH (21:55)
[2024-02-14 07:14] VITALS: BP 102/51; PULSE 63; TEMP 97.5
[2024-02-14] MEDS: SERTRALINE 100 MG TAB PO SCH (08:03)
[2024-02-14] MEDS: ARIPiprazole IM SYRINGE 400 MG (NO CHARGE) PHARMACY STOCK IM SCH (09:56)
--- NOTE | 2024-02-14 10:06 | P.DS ---
Providers Date of admission: 02/09/24 12:54 Expected date of discharge: 02/14/24 Attending physician: Luis Wang MD Consults: 02/09/24 13:08 Consult Physician Routine Consulting Provider: Papo Díaz Consult Reason/Comments: H and P Do you want consulting provider notified?: Yes Primary care physician: Stated None - Discharge Diagnosis(es) (1) Schizoaffective disorder, depressive type Current Visit: Yes Status: Acute Priority: High (2) Anxiety disorder, unspecified Current Visit: Yes Status: Acute Priority: Medium (3) Homelessness Current Visit: Yes Status: Acute Priority: Medium (4) Cannabis use disorder Current Visit: No Status: Acute Priority: High (5) Nicotine dependence Current Visit: No Status: Acute Priority: Low Hospital Course: Admission HPI: Admission note was completed by selling underwriter "Patient presented to the hospital on 02/08. As per EPS note, "Pt brought herself to the ER today with a manic episode, anxious. She states she was not given meds when she left the hospital and has not taken them for 6 days. She was confused about her follow up and states "I think I was supposed to follow up with the police." She is confused, alert to person and place, confused to date. Pt is very anxious, paranoid, fearful, she is begging staff not to send her back to [facility]. She states she is afraid to tell staff what happened there, because someone will hurt her or her family. She is reporting that they were drugging girls and taking advantage of them. Pt states "I can't focus on me, I am seeing all the problems everywhere" "I am feeling uncomfortable because I am hyperfocused on things" Upon todays assessment, she states that [place] is running a sex trafficking ring, that the girls are masturbating on camera. That they are offering patients tables with video chat. Patient tearful while explaining this, sobbing. Patient states she lost all of her medication after she got discharged, because she is homeless, and that she wants to be back on her medications. She states that she hasn't taken any of her meds since she got out. She also states that her depression and anxiety are "through the roof" She states being in [place] was traumatic. She is very focused on that admission. Metal Extrusion Supervisor spoke with patient about receiving a LOWE, so she can be more compliant with medications, patient agreeable. Patient states that he sleep is not that good. Claims her appetite is good. Patient denies any suicidal or homicidal ideations intent or plan. At this time patient denies any auditory or visual hallucinations. Patient denies any flight of ideas racing thoughts and increased in goal directed behavior. Patient admits to using marijuana." Hospital course: Upon admission to the unit patient was directable and agreeable to commence treatment and signed adult voluntary form. Patient was initially fairly bizarre and psychotic however with time and treatment she eventually got along well with other patients on the unit and followed unit protocol. Patient was compliant with the medications and denied any side effects throughout hospital course. Patient was started on Zoloft and increased to dose of 100 mg daily for mood/anxiety, Abilify increased to dose of 10 mg daily for psychosis/mood stabilization, trazodone 50 mg nightly for insomnia/mood, Vistaril 50 mg nightly scheduled for anxiety/sleep. Patient was agreeable to be transitioned onto long-acting injection to ensure compliance, was given Abilify Maintena 400 mg IM on day of discharge 02/13, next dose will be due in q. 28 days on 03/13. Patient spoke of her stressors and engaged in therapy both group and individual. Patient was also seen by medical team for history and physical exam. Throughout the course of the hospitalization patient gradually improved with regards to mood, anxiety, psychosis, sleep and became more future oriented with improved insight and judgment. On the day of discharge patient denied any suicidal or homicidal ideations intent or plan denied any auditory or visual hallucinations. Patient endorsed wanting to live for her kids and her future. The patient denied any access to guns or weapons. Patient denied any paranoia and did not endorse any delusions. Patient does have a significant history of substance abuse and was counseled on abstaining from all substances including alcohol and marijuana. Patient elected to do outpatient substance use treatment program through [facility]. Patient was also counseled on the medications and need for regular compliance and was encouraged to follow-up with their outpatient appointment for mental health and also for primary care. Prior to discharge a family meeting will be arranged by medical social worker to answer any questions and ensure safety upon discharge. Patient will be discharged to her mother's house and [facility], she plans to transition her care to [facility]. Mental status exam: General Appearance: Patient appears to be mildly overweight, short hair, stated age is alert, pleasant, and cooperative. Patient is in no acute distress and has improved hygiene and grooming Behavior: Patient is calmly seated without any agitated behavior. Speech: Patient's speech is fluent and nonpressured. Mood/Affect: Patient reports their mood is "better", affect is congruent and euthymic. Suicidality/Homicidality: Patient denies having any suicidal or homicidal ideation intent or plan. Perceptions: Patient denies any auditory or visual hallucinations. Though content/process: There is no evidence of any delusional thought content and thought process is linear and goal-directed. More future oriented Memory and concentration: AOX3, grossly intact for the purposes of this session. Can spell "WORLD" backwards correctly. Judgment and insight: improved with guarded prognosis Impression: schizoaffective disorder, depressive type anxiety disorder NOS cannabis use disorder nicotine dependence homelessness Plan: -Continue with discharge today as patient has improved and stabilized psychiatrically and is not currently an imminent threat to herself and/or others. Patient will remain at chronically elevated risk for harm to self and/or others due to her impulsivity. -Continue medications: Zoloft 100 mg daily for mood/anxiety, Abilify p.o. 10 mg daily for psychosis/mood stabilization, continue Abilify p.o. for 14 more days then discontinue. Patient was given Abilify Maintena 400 mg IM on 02/13, next dose will be due on 03/13. Trazodone 50 mg nightly for insomnia/mood, Vistaril 50 mg nightly for anxiety/sleep. -Patient was counseled on the need for medication compliance and appropriate follow-up at mental health and also primary care for medical issues. Patient verbalized understanding and agreed. -Social work to arrange for and conduct family meeting to ensure safety upon discharge and answer any questions/concerns. Social work also to arrange for patients follow up appointments with [facility] for psychiatric care along with follow up with primary care provider. -Patient counseled on abstaining from recreational drugs and marijuana and alcohol. Was informed/educated on the adverse effects on their physical and mental health. Patient verbally agreed and understood. Patient was offered substance abuse treatment however declined at this time. -Patient was instructed to return to the hospital or seek immediate medical care if their psychiatric or medical symptoms do worsen or reoccur. Allergies Allergy/AdvReac Type Severity Reaction Status Date / Time divalproex sodium Allergy Rash/Hives Verified 02/09/24 02:57 From [facility] Laboratory Results WBC 9.3 k/uL (3.8-10.6) 02/10/24 08:04 RBC 4.38 m/uL (3.80-5.40) 02/10/24 08:04 Hgb 13.1 gm/dL (11.4-16.0) 02/10/24 08:04 Hct 40.7 % (34.0-46.0) 02/10/24 08:04 MCV 92.8 fL (80.0-100.0) 02/10/24 08:04 MCH 29.9 pg (25.0-35.0) 02/10/24 08:04 MCHC 32.2 g/dL (31.0-37.0) 02/10/24 08:04 RDW 13.3 % (11.5-15.5) 02/10/24 08:04 Plt Count 409 k/uL (150-450) 02/10/24 08:04 MPV 7.5 02/10/24 08:04 Neutrophils % 66 % 02/10/24 08:04 Lymphocytes % 25 % 02/10/24 08:04 Monocytes % 6 % 02/10/24 08:04 Eosinophils % 1 % 02/10/24 08:04 Basophils % 1 % 02/10/24 08:04 Neutrophils # 6.1 k/uL (1.3-7.7) 02/10/24 08:04 Lymphocytes # 2.3 k/uL (1.0-4.8) 02/10/24 08:04 Monocytes # 0.6 k/uL (0-1.0) 02/10/24 08:04 Eosinophils # 0.1 k/uL (0-0.7) 02/10/24 08:04 Basophils # 0.1 k/uL (0-0.2) 02/10/24 08:04 Sodium 141 mmol/L (137-145) 02/10/24 07:55 Potassium 4.3 mmol/L (3.5-5.1) 02/10/24 07:55 Chloride 111 mmol/L (98-107) H 02/10/24 07:55 Carbon Dioxide 21 mmol/L (22-30) L 02/10/24 07:55 Anion Gap 9 mmol/L 02/10/24 07:55 BUN 15 mg/dL (7-17) 02/10/24 07:55 Creatinine 0.67 mg/dL (0.52-1.04) 02/10/24 07:55 Est GFR (CKD-EPI)AfAm >90 (>60 ml/min/1.73 sqM) 02/10/24 07:55 Est GFR (CKD-EPI)NonAf >90 (>60 ml/min/1.73 sqM) 02/10/24 07:55 Glucose 83 mg/dL (74-99) 02/10/24 07:[address] Glu mg/dL 108 mg/dL 02/10/24 07:55 Hemoglobin A1c 5.4 % (<=6.0) 02/10/24 07:55 Calcium 9.1 mg/dL (8.4-10.2) 02/10/24 07:55 Total Bilirubin 0.3 mg/dL (0.2-1.3) 02/10/24 07:55 AST 16 U/L (14-36) 02/10/24 07:55 ALT 16 U/L (4-34) 02/10/24 07:55 Alkaline Phosphatase 63 U/L (38-126) 02/10/24 07:55 Total Protein 6.4 g/dL (6.3-8.2) 02/10/24 07:55 Albumin 3.7 g/dL (3.5-5.0) 02/10/24 07:55 Triglycerides 80.70 mg/dL (0.00-149.00) 02/10/24 07:55 Cholesterol 170.00 mg/dL (0.00-200.00) 02/10/24 07:55 LDL Cholesterol, Calc 104.7 mg/dL (0.0-131.0) 02/10/24 07:55 VLDL Cholesterol, Calc 16.14 mg/dL (5.00-40.00) 02/10/24 07:55 HDL Cholesterol 49.20 mg/dL (40.00-60.00) 02/10/24 07:55 Cholesterol/HDL Ratio 3.46 Ratio 02/10/24 07:55 TSH 0.633 mIU/L (0.465-4.680) 02/10/24 07:55 Urine Color Colorless 02/10/24 16:09 Urine Appearance Clear (Clear) 02/10/24 16:09 Urine pH 6.0 (5.0-8.0) 02/10/24 16:09 Ur Specific [place] 1.014 (1.001-1.035) 02/10/24 16:09 Urine Protein Negative (Negative) 02/10/24 16:09 Urine Glucose (UA) Negative (Negative) 02/10/24 16:09 Urine Ketones Negative (Negative) 02/10/24 16:09 Urine Blood Trace (Negative) H 02/10/24 16:09 Urine Nitrite Negative (Negative) 02/10/24 16:09 Urine Bilirubin Negative (Negative) 02/10/24 16:09 Urine Urobilinogen <2.0 mg/dL (<2.0) 02/10/24 16:09 Ur Leukocyte Esterase Negative (Negative) 02/10/24 16:09 Urine RBC <1 /hpf (0-5) 02/10/24 16:09 Urine WBC 1 /hpf (0-5) 02/10/24 16:09 Ur Squamous Epith Cells 1 /hpf (0-4) 02/10/24 16:09 Urine Mucus Rare /hpf (None) H 02/10/24 16:09 Urine HCG, Qual Not Detected (Not Detectd) 02/09/24 03:08 Urine Opiates Screen Not Detected (NotDetected) 02/09/24 03:08 Ur Oxycodone Screen Not Detected (NotDetected) 02/09/24 03:08 Urine Methadone Screen Not Detected (NotDetected) 02/09/24 03:08 Ur Barbiturates Screen Not Detected (NotDetected) 02/09/24 03:08 U Tricyclic Antidepress Not Detected (NotDetected) 02/09/24 03:08 Ur Phencyclidine Scrn Not Detected (NotDetected) 02/09/24 03:08 Ur Amphetamines Screen Not Detected (NotDetected) 02/09/24 03:08 U Methamphetamines Scrn Not Detected (NotDetected) 02/09/24 03:08 U Benzodiazepines Scrn Not Detected (NotDetected) 02/09/24 03:08 Urine Cocaine Screen Not Detected (NotDetected) 02/09/24 03:08 U Marijuana (THC) Screen Detected (NotDetected) H 02/09/24 03:08 SARS-CoV-2 (PCR) Not Detected (Not Detectd) 02/09/24 11:45 Vital Signs Temp 97.5 F L 02/14/24 06:47 Pulse 63 02/14/24 06:47 Resp 14 02/14/24 06:47 BP 102/51 02/14/24 06:47 Pulse Ox 98 02/12/24 06:18 FiO2 Patient Condition at Discharge: Stable Plan - Discharge Summary New Discharge Prescriptions: New ARIPiprazole [Abilify] 10 mg PO DAILY 14 Days #14 tab Nicotine 14Mg/24Hr Patch [Habitrol] 1 patch TRANSDERM DAILY 14 Days #14 patch hydrOXYzine pamoate [Vistaril] 50 mg PO HS 30 Days #60 cap ARIPiprazole IM [Abilify Maintena] 400 mg IM Q28D #1 each traZODone HCL [Desyrel] 50 mg PO HS PRN 30 Days #30 tab PRN Reason: Insomnia Ibuprofen [Motrin] 600 mg PO Q6HR PRN tab PRN Reason: Moderate Pain (Scale 4 To 6) Sertraline [Zoloft] 100 mg PO DAILY 30 Days #30 tab Discontinued Sertraline [Zoloft] 50 mg PO DAILY hydrOXYzine pamoate [Vistaril] 50 mg PO TID PRN PRN Reason: Anxiety lamoTRIgine [LaMICtal Xr] 50 mg PO BID Discharge Medication List ARIPiprazole IM [Abilify Maintena] 400 mg IM Q28D #1 each 02/14/24 [Rx] ARIPiprazole [Abilify] 10 mg PO DAILY 14 Days #14 tab 02/14/24 [Rx] Ibuprofen [Motrin] 600 mg PO Q6HR PRN tab 02/14/24 [Rx] Nicotine 14Mg/24Hr Patch [Habitrol] 1 patch TRANSDERM DAILY 14 Days #14 patch 02/14/24 [Rx] Sertraline [Zoloft] 100 mg PO DAILY 30 Days #30 tab 02/14/24 [Rx] hydrOXYzine pamoate [Vistaril] 50 mg PO HS 30 Days #60 cap 02/14/24 [Rx] traZODone HCL [Desyrel] 50 mg PO HS PRN 30 Days #30 tab 02/14/24 [Rx] Follow up Appointment(s)/Referral(s): MEHNAZ Kumar [Other] - 02/18/24 1:30 pm [facility] [Other] - 1 Week Patient Instructions/Handouts: How to Stop Smoking (ED), Schizoaffective Disorder (DC), Cannabis Abuse (DC), Anxiety (GEN) Activity/Diet/Wound Care/Special Instructions: Avoid the use of street drugs and alcohol. Take all medications as prescribed. When you are in need of refills on your medications, please contact your medical provider and/or outpatient psychiatrist/provider to have this done. Please go to your scheduled outpatient appointment for aftercare treatment. If symptoms return or become worse, call the crisis line at and/or go to the nearest emergency room for evaluation. National Suicide Hotline 414. Discharge Disposition: HOME SELF-CARE
== END 2024-02-14 12:12 | disposition home or self-care (01) | DRG 750 ==
LOC: EC 02:52 → 3MHU 12:54
PROVIDERS: ADMIT Psychiatry & Neurology Psychiatry; ATTEND Psychiatry & Neurology Psychiatry
DX: F25.1 Schizoaffective disorder, depressive type (principal); F12.10 Cannabis abuse, uncomplicated; Z91.148 Patient's other noncompliance with medication regimen for other reason; E66.3 Overweight; Z68.36 Body mass index [BMI] 36.0-36.9, adult; Z11.52 Encounter for screening for COVID-19; Z28.310 Unvaccinated for COVID-19; F41.9 Anxiety disorder, unspecified; G47.00 Insomnia, unspecified; F90.9 Attention-deficit hyperactivity disorder, unspecified type; M79.606 Pain in leg, unspecified; F43.10 Post-traumatic stress disorder, unspecified; Z59.00 Homelessness unspecified; F17.290 Nicotine dependence, other tobacco product, uncomplicated; Z71.6 Tobacco abuse counseling; Z79.899 Other long term (current) drug therapy; Z91.51 Personal history of suicidal behavior; Z56.0 Unemployment, unspecified; Z71.51 Drug abuse counseling and surveillance of drug abuser; Z88.8 Allergy status to other drugs, medicaments and biological substances
CPT/HCPCS: 80053; 80061; 80306; 81001; 81025; 82075; 83036; 84443; 85025; 87635; 99285

== ENCOUNTER 2025-01-13 18:39 | Emergency (ER) | payer OTHER ==
[2025-01-13 20:05] VITALS: RESP 18; TEMP 98
--- NOTE | 2025-01-13 20:20 | ED ---
Anxiety HPI - General Chief Complaint: Anxiety Stated Complaint: mental health eval Time Seen by Provider: 01/13/25 19:06 Source: patient, RN notes reviewed Mode of arrival: ambulatory Limitations: no limitations - History of Present Illness Initial Comments: 34-year-old female presents emergency department chief complaint of needing medication refill. Patient states that she has bipolar states that she is out of her Zoloft and hydroxyzine. Patient also missed her injection for Abilify. Patient denies any suicidal homicidal [place] patient states that she has followed by [facility]. - Related Data Home Medications: Previous Rx's Medication Instructions Recorded ARIPiprazole IM [Abilify Maintena] 400 mg IM Q28D #1 each 02/14/24 ARIPiprazole [Abilify] 10 mg PO DAILY 14 Days #14 tab 02/14/24 Ibuprofen [Motrin] 600 mg PO Q6HR PRN tab 02/14/24 Nicotine 14Mg/24Hr Patch [Habitrol] 1 patch TRANSDERM DAILY 14 Days 02/14/24 #14 patch Sertraline [Zoloft] 100 mg PO DAILY 30 Days #30 tab 02/14/24 hydrOXYzine pamoate [Vistaril] 50 mg PO HS 30 Days #60 cap 02/14/24 traZODone HCL [Desyrel] 50 mg PO HS PRN 30 Days #30 tab 02/14/24 Sertraline [Zoloft] 200 mg PO DAILY #60 tab 01/13/25 hydrOXYzine pamoate [Vistaril] 50 mg PO TID #60 capsule 01/13/25 Allergies/Adverse Reactions: Allergies Allergy/AdvReac Type Severity Reaction Status Date / Time divalproex sodium Allergy Rash/Hives Verified 01/13/25 20:05 [From Depakote] Review of Systems ROS Statement: Those systems with pertinent positive or pertinent negative responses have been documented in the HPI. ROS Other: All systems not noted in ROS Statement are negative. Past Medical History Past Medical History: No Reported History Additional Past Medical History / Comment(s): anxiety, depression History of Any Multi-Drug Resistant Organisms: None Reported Date of last positivie culture/infection: None MDRO Source:: None Past Surgical History: Adenoidectomy, Section, Ear Surgery, Hernia Repair, Tonsillectomy, Tubal Ligation Additional Past Surgical History / Comment(s): tubes in ears, colonoscopy and EGD 2016, knee surgery Past Anesthesia/Blood Transfusion Reactions: No Reported Reaction Past Psychological History: ADD/ADHD, Anxiety, Bipolar, Depression, PTSD, Schizophrenia Smoking Status: Current every day smoker, Vaper Past Alcohol Use History: None Reported Past Drug Use History: Marijuana - Past Family History Mother History Unknown: Yes Family Medical History: Cancer General Exam Limitations: no limitations General appearance: alert, in no apparent distress Head exam: Present: atraumatic, normocephalic, normal inspection Eye exam: Present: normal appearance, PERRL, EOMI. Absent: scleral icterus, conjunctival injection, periorbital swelling ENT exam: Present: normal exam, normal oropharynx, mucous membranes moist Neck exam: Present: normal inspection, full ROM. Absent: tenderness, meningismus, lymphadenopathy Respiratory exam: Present: normal lung sounds bilaterally. Absent: respiratory distress, wheezes, rales, rhonchi, stridor Cardiovascular Exam: Present: regular rate, normal rhythm, normal heart sounds. Absent: systolic murmur, diastolic murmur, rubs, gallop, clicks GI/Abdominal exam: Present: soft, normal bowel sounds. Absent: distended, tenderness, guarding, rebound, rigid Neurological exam: Present: alert Psychiatric exam: Present: anxious Course Vital Signs 01/13/25 20:02 Temperature 98.0 F Pulse Rate 115 H Respiratory 18 Rate Blood Pressure 114/70 O2 Sat by Pulse 97 Oximetry Medical Decision Making - Medical Decision Making Was pt. sent in by a medical professional or institution (, PA, PRODUCT SAFETY SPECIALIST, urgent care, hospital, or senior care...) When possible be specific @ -No Did you speak to anyone other than the patient for history (EMS, parent, family, police, friend...)? What history was obtained from this source @ -No Did you review nursing and triage notes (agree or disagree)? Why? @ -I reviewed and agree with nursing and triage notes Were old charts reviewed (outside hosp., previous admission, EMS record, old EKG, old radiological studies, urgent care reports/EKG's, senior care records)? Report findings @ -No old charts were reviewed Differential Diagnosis (chest pain, altered mental status, abdominal pain women, abdominal pain men, vaginal bleeding, weakness, fever, dyspnea, syncope, headache, dizziness, GI bleed, back pain, seizure, CVA, palpatations, mental health, musculoskeletal)? @ -[Differential Mental Health Depression, anxiety, bipolar, psychosis, schizophrenia, borderline personality, situational depression, adjustment disorder, behavioral disorder, brain tumor, malingering, substance abuse, encephalopathy, medication reaction, dementia, hypothyroidism, degenerative neurologic disorder, lupus.... This is not meant to be all-inclusive list EKG interpreted by me (3pts min.). @None X-rays interpreted by me (1pt min.). @ -None done CT interpreted by me (1pt min.). @ -None done U/S interpreted by me (1pt. min.). @ -None done What testing was considered but not performed or refused? (CT, X-rays, U/S, labs)? Why? @ -None What meds were considered but not given or refused? Why? @ -None Did you discuss the management of the patient with other professionals (professionals i.e. , PA, PRODUCT SAFETY SPECIALIST, lab, RT, psych nurse, social science analyst, electrical troubleshooter, teacher, lodge officer, case management manager)? Give summary @ -No Was smoking cessation discussed for >3mins.? @ -No Was critical care preformed (if so, how long)? @ -No Were there social determinants of health that impacted care today? How? (Homelessness, low income, unemployed, alcoholism, drug addiction, transportation, low edu. Level, literacy, decrease access to med. care, senior care, rehab)? @ -No Was there de-escalation of care discussed even if they declined (Discuss DNR or withdrawal of care, Hospice)? DNR status @ -No What co-morbidities impacted this encounter? (DM, HTN, Smoking, COPD, CAD, Cancer, CVA, ARF, Chemo, Hep., AIDS, mental health diagnosis, sleep apnea, morb id obesity)? @ -None Was patient admitted / discharged? Hospital course, mention meds given and route, prescriptions, significant lab abnormalities, going to OR and other pertinent info. @ -Discharge patient was given medication refill she will follow-up with her [facility]. Patient is not suicidal homicidal. Undiagnosed new problem with uncertain prognosis? @ -No Drug Therapy requiring intensive monitoring for toxicity (Heparin, Nitro, Insulin, Cardizem)? @ -No Were any procedures done? @ -No Diagnosis/symptom? @ -Bipolar disorder, anxiety, medication refill Acute, or Chronic, or Acute on Chronic? @ -Acute Uncomplicated (without systemic symptoms) or Complicated (systemic symptoms)? @ -Uncomplicated Side effects of treatment? @ -No Exacerbation, Progression, or Severe Exacerbation? @ -No Poses a threat to life or bodily function? How? (Chest pain, [place], [place], pneumonia, PE, COPD, DKA, ARF, appy, cholecystitis, CVA, Diverticulitis, Homicidal, Suicidal, threat to staff... and all critical care pts) @ -No Disposition Clinical Impression: Acute anxiety, Bipolar disorder Disposition: HOME SELF-CARE Condition: Stable Instructions (If sedation given, give patient instructions): Generalized Anxiety Disorder (ED) Additional Instructions: Please return to the Emergency Department if symptoms worsen or any other concerns. Prescriptions: hydrOXYzine pamoate [Vistaril] 50 mg PO TID #60 capsule Sertraline [Zoloft] 200 mg PO DAILY #60 tab Is patient prescribed a controlled substance at d/c from ED?: No Referrals: Nonstaff,Physician [Primary Care Provider] - 1-2 days Time of Disposition: 20:13
[2025-01-13] MEDS: ARIPiprazole IM SYRINGE 400 MG (NO CHARGE) PHARMACY STOCK IM ONE (21:36)
[2025-01-13 21:43] VITALS: BP 138/73; PULSE 77
== END 2025-01-13 21:38 | disposition home or self-care (01) ==
LOC: SUPCPDRO 18:39 → EC 18:39
DX: F31.9 Bipolar disorder, unspecified (principal); F41.9 Anxiety disorder, unspecified; F17.290 Nicotine dependence, other tobacco product, uncomplicated
CPT/HCPCS: 96372; 99284

== ENCOUNTER 2025-03-15 17:33 | Emergency (ER) | payer OTHER ==
--- NOTE | 2025-03-15 18:25 | ED ---
General Adult HPI - General Chief complaint: Altered Mental Status Stated complaint: Mental Health Time Seen by Provider: 03/15/25 18:24 Source: patient, RN notes reviewed Mode of arrival: ambulatory Limitations: no limitations - History of Present Illness Initial comments: 34-year-old female presented the ER for evaluation of SI. Patient states she scruggs s been off her medications for approximately 2 weeks and she is currently trying to find a new psychiatrist. Typically takes Abilify, Zoloft, Habitrol and Vistaril. Patient states she has had progressively worsening SI over the past 2 weeks since being off medications. Denies plan. She has attempted suicidal thoughts in the past but attributed to "electrocute" herself. She denies any homicidal thoughts or hallucinations. Denies drug or alcohol use. No other complaints. - Related Data Previous Rx's Medication Instructions Recorded ARIPiprazole IM [Abilify Maintena] 400 mg IM Q28D #1 each 02/14/24 ARIPiprazole [Abilify] 10 mg PO DAILY 14 Days #14 tab 02/14/24 Ibuprofen [Motrin] 600 mg PO Q6HR PRN tab 02/14/24 Nicotine 14Mg/24Hr Patch [Habitrol] 1 patch TRANSDERM DAILY 14 Days 02/14/24 #14 patch Sertraline [Zoloft] 100 mg PO DAILY 30 Days #30 tab 02/14/24 hydrOXYzine pamoate [Vistaril] 50 mg PO HS 30 Days #60 cap 02/14/24 traZODone HCL [Desyrel] 50 mg PO HS PRN 30 Days #30 tab 02/14/24 Sertraline [Zoloft] 200 mg PO DAILY #60 tab 01/13/25 hydrOXYzine pamoate [Vistaril] 50 mg PO TID #60 capsule 01/13/25 Allergies Allergy/AdvReac Type Severity Reaction Status Date / Time divalproex sodium Allergy Rash/Hives Verified 03/15/25 17:46 [From Depakote] Review of Systems ROS Statement: Those systems with pertinent positive or pertinent negative responses have been documented in the HPI. ROS Other: All systems not noted in ROS Statement are negative. Past Medical History Past Medical History: No Reported History Additional Past Medical History / Comment(s): anxiety, depression History of Any Multi-Drug Resistant Organisms: None Reported Date of last positivie culture/infection: None MDRO Source:: None Past Surgical History: Adenoidectomy, Section, Ear Surgery, Hernia Repair, Tonsillectomy, Tubal Ligation Additional Past Surgical History / Comment(s): tubes in ears, colonoscopy and EGD 2016, knee surgery Past Anesthesia/Blood Transfusion Reactions: No Reported Reaction Past Psychological History: ADD/ADHD, Anxiety, Bipolar, Depression, PTSD, Schizophrenia Smoking Status: Current every day smoker, Vaper Past Alcohol Use History: None Reported Past Drug Use History: Marijuana - Past Family History Mother History Unknown: Yes Family Medical History: Cancer General Exam Limitations: no limitations General appearance: alert, in no apparent distress Respiratory exam: Present: normal lung sounds bilaterally. Absent: respiratory distress, wheezes, rales, rhonchi, stridor Cardiovascular Exam: Present: regular rate, normal rhythm, normal heart sounds. Absent: systolic murmur, diastolic murmur, rubs, gallop, clicks GI/Abdominal exam: Present: soft, normal bowel sounds. Absent: distended, tenderness, guarding, rebound, rigid Extremities exam: Present: normal inspection, full ROM, normal capillary refill. Absent: tenderness, pedal edema, joint swelling, calf tenderness Neurological exam: Present: alert, oriented X3, CN II-XII intact Psychiatric exam: Present: suicidal ideation Skin exam: Present: warm, dry, intact, normal color. Absent: rash Course Vital Signs 03/15/25 03/15/25 17:40 21:06 Temperature 98.3 F 98.1 F Pulse Rate 72 74 Respiratory 17 18 Rate Blood Pressure 124/86 126/84 O2 Sat by Pulse 99 98 Oximetry - Reevaluation(s) Reevaluation #1: Case discussed with EPS nurse Albrecht who advised on safety plan and discharge home. Medical Decision Making - Medical Decision Making Was pt. sent in by a medical professional or institution (, PA, SENIOR TELECOMMUNICATIONS CONSULTANT, urgent care, hospital, or [facility]...) When possible be specific @ -No Did you speak to anyone other than the patient for history (EMS, parent, family, police, friend...)? What history was obtained from this source @ -No Did you review nursing and triage notes (agree or disagree)? Why? @ -I reviewed and agree with nursing and triage notes Were old charts reviewed (outside hosp., previous admission, EMS record, old EKG, old radiological studies, urgent care reports/EKG's, [facility] records)? Report findings @ -No old charts were reviewed Differential Diagnosis (chest pain, altered mental status, abdominal pain women, abdominal pain men, vaginal bleeding, weakness, fever, dyspnea, syncope, headache, dizziness, GI bleed, back pain, seizure, CVA, palpatations, mental health, musculoskeletal)? @ -Differential Mental Health: Depression, anxiety, bipolar, psychosis, schizo phrenia, borderline personality, situational depression, adjustment disorder, behavioral disorder, brain tumor, malingering, substance abuse, encephalopathy, medication reaction, dementia, hypothyroidism, degenerative neurologic disorder, lupus.... This is not meant to be all-inclusive list EKG interpreted by me (3pts min.). @ -None done X-rays interpreted by me (1pt min.). @ -None done CT interpreted by me (1pt min.). @ -None done U/S interpreted by me (1pt. min.). @ -None done What testing was considered but not performed or refused? (CT, X-rays, U/S, labs)? Why? @ -None What meds were considered but not given or refused? Why? @ -None Did you discuss the management of the patient with other professionals (professionals i.e. , PA, SENIOR TELECOMMUNICATIONS CONSULTANT, lab, RT, psych nurse, health social work professor, community planning technician, teacher, chief accounting officer, foster care case manager)? Give summary @ -Case discussed with EPS, Trena BERMUDEZ, she advised on safety plan and discharge home. Was smoking cessation discussed for >3mins.? @ -No Was critical care preformed (if so, how long)? @ -No Were there social determinants of health that impacted care today? How? (Homelessness, low income, unemployed, alcoholism, drug addiction, transportatio n, low edu. Level, literacy, decrease access to med. care, alf, rehab)? @ -No Was there de-escalation of care discussed even if they declined (Discuss DNR or withdrawal of care, Hospice)? DNR status @ -No What co-morbidities impacted this encounter? (DM, HTN, Smoking, COPD, CAD, Cancer, CVA, ARF, Chemo, Hep., AIDS, mental health diagnosis, sleep apnea, morbid obesity)? @ -None Was patient admitted / discharged? Hospital course, mention meds given and route, prescriptions, significant lab abnormalities, going to OR and other pertinent info. @ -Discharge. 34-year-old female presented the ER for evaluation of suicidal ideation without plan. Vitals within acceptable limits. BAT 0.00. Urine analysis positive for THC. Patient medically cleared for EPS evaluation. Patient was evaluated by EPS AIDAN Albrecht. She states there is a safety plan in place and patient can be discharged. Case discussed with ED attending, Dr. Rodriguez. Undiagnosed new problem with uncertain prognosis? @ -No Drug Therapy requiring intensive monitoring for toxicity (Heparin, Nitro, Insulin, Cardizem)? @ -No Were any procedures done? @ -No Diagnosis/symptom? @ -Suicidal ideation without plan Acute, or Chronic, or Acute on Chronic? @ -Acute Uncomplicated (without systemic symptoms) or Complicated (systemic symptoms)? @ -Uncomplicated Side effects of treatment? @ -No Exacerbation, Progression, or Severe Exacerbation? @ -No Poses a threat to life or bodily function? How? (Chest pain, [place], [place], pneumonia, PE, COPD, DKA, ARF, appy, cholecystitis, CVA, Diverticulitis, Homicidal, Suicidal, threat to staff... and all critical care pts) @ -Low at this time - Lab Data Lab Results 03/15/25 Range/Units 18:38 Urine Opiates Screen Not Detected (NotDetected) Ur Oxycodone Screen Not Detected (NotDetected) Urine Methadone Screen Not Detected (NotDetected) Ur Barbiturates Screen Not Detected (NotDetected) U Tricyclic Antidepress Not Detected (NotDetected) Ur Phencyclidine Scrn Not Detected (NotDetected) Ur Amphetamines Screen Not Detected (NotDetected) U Methamphetamines Scrn Not Detected (NotDetected) U Benzodiazepines Scrn Not Detected (NotDetected) Urine Cocaine Screen Not Detected (NotDetected) U Marijuana (THC) Screen Detected H (NotDetected) Disposition Clinical Impression: Suicidal ideation Disposition: HOME SELF-CARE Condition: Stable Additional Instructions: Follow-up with psychiatrist. Return to the ER for any new or worsening concerns. Is patient prescribed a controlled substance at d/c from ED?: No Referrals: Nonstaff,Physician [REFERRING] - 1-2 days Time of Disposition: 20:44
[2025-03-15 19:06] LABS: Amphetamine Screen,Urine Not Detected (NotDetected); Barbiturate Screen,Urine Not Detected (NotDetected); Benzodiazepines Screen,Urine Not Detected (NotDetected); Cocaine Screen,Urine Not Detected (NotDetected); Methadone Screen, Urine Not Detected (NotDetected); Opiate Screen,Urine Not Detected (NotDetected); Oxycodone Screen, Urine Not Detected (NotDetected); Phencyclidine Screen,Urine Not Detected (NotDetected); Tricyclic Antidepressant,Urine Not Detected (NotDetected); Urn Cannabinoid Scrn Detected (NotDetected)
[2025-03-15 21:08] VITALS: BP 126/84; PULSE 74; RESP 18; TEMP 98.1
== END 2025-03-15 21:08 | disposition home or self-care (01) ==
LOC: EC 17:33
DX: R45.851 Suicidal ideations (principal); F17.290 Nicotine dependence, other tobacco product, uncomplicated; Z88.8 Allergy status to other drugs, medicaments and biological substances
CPT/HCPCS: 80306; 82075; 99285